=== PATIENT | female | born 1935 | race Caucasian/White ===

== ENCOUNTER → 2016-07-03 | Outpatient (CLI) | payer OTHER ==
[~2016-07-03] MED LIST: GLIM4TAB2 PO; INDSR/120 PO; INSU3INJ3 SC; LIRA18IN; LIRA18IN SC; LISI-461 PO; LISI10TA PO; PROP120C PO; VNTHFA/IN INH
--- NOTE | 2016-07-03 10:03 | DIAGNOSTIC IMAGING REPORT ---
CT SCAN OF THE CHEST WITHOUT IV CONTRAST CLINICAL HISTORY: Follow-up abnormal imaging study. COMPARISON STUDY: Chest CT scans dated between 03/22/2016 and 01/24/2015. TECHNIQUE: CT scan of the thorax was performed from the thoracic inlet to the upper abdomen. Images are reviewed in the axial, sagittal, and coronal planes. IV contrast was not administered for this examination. CT DOSE: 165.69 mGycm FINDINGS: Thyroid: Atrophic. Thoracic aorta: There is mild atherosclerotic calcification of the thoracic aorta, which is normal in caliber and demonstrates standard 3-vessel arch anatomy. Heart: The heart is normal in size and there is trace pericardial effusion. The coronary arteries and mitral annulus are densely calcified. Lungs and pleural spaces: There is biapical scarring. Scarring and mild bronchiectasis is seen in the right middle lobe and lingula. There are numerous foci of tree-in-bud nodularity scattered throughout both lungs. This is greatest in the apices and at the right lung base, and is overall similar appearance to the 07/03/2016 examination. No lobar consolidation or pleural effusion is identified. Mucous plugging is noted in the right middle lobe and lingula. The trachea and central airways our clear. Mediastinum: There is no mediastinal lymphadenopathy. Allison: Not well assessed without IV contrast. Axillae: There is no axillary lymphadenopathy. Upper abdomen: A 1.2 cm cyst is seen in the left lobe of liver. There is a small hiatal hernia. Cortical atrophy is noted in the partially imaged kidneys. Skeletal structures: The skeletal structures are osteopenic. A moderate compression deformity of T7 is similar to previous. There is a mild superior endplate compression deformity of T2. Hyperkyphosis is observed. No lytic or blastic bony lesions are seen. IMPRESSION: 1. Similar-appearing multifocal tree-in-bud opacities within bone lungs. This is similar to 03/22/2016, and has shown a waxing/waning appearance when compared to prior chest CTs. The appearance is typical for a chronic infectious/inflammatory process such as atypical mycobacterial infection. 2. There is no lobar consolidation or pleural effusion. 3. Hiatal hernia. 4. Additional changes as above. Electronically signed by: Jhonatan Villeda M.D. 07/03/2016 10:01 AM Dictated Date/Time: 07/03/2016 9:53 AM
== END | disposition home or self-care (01) ==
LOC: C.CTS 09:20
PROVIDERS: ATTEND Internal Medicine Pulmonary Disease
DX: R91.8 Other nonspecific abnormal finding of lung field (principal); J98.8 Other specified respiratory disorders; K44.9 Diaphragmatic hernia without obstruction or gangrene

== ENCOUNTER → 2016-07-08 | Outpatient (CLI) | payer OTHER ==
[2016-07-08 13:01] LABS: ESTIMATED AVERAGE GLUCOSE 217 mg/dl; HA1C FLAG Normal (Normal)
[2016-07-08 13:19] LABS: AST/SGOT 10 U/L (15-37); BLOOD UREA NITROGEN 13 mg/dl (7-18); BUN/CREATININE RATIO 17.5 (10-20); CALCIUM 9.4 mg/dl (8.5-10.1); CARBON DIOXIDE 26 mmol/L (21-32); CHLORIDE 106 mmol/L (98-107); CHOLESTEROL 179 mg/dl (0-200); CREATININE 0.75 mg/dl (0.60-1.20); GLUCOSE 169 mg/dl (70-99); POTASSIUM 4.2 mmol/L (3.5-5.1); SODIUM 140 mmol/L (136-145); TRIGLYCERIDES 142 mg/dl (0-150); VERY LOW DENSITY LIPOPROT CALC 28 mg/dl
[2016-07-08 13:24] LABS: ALKALINE PHOSPHATASE 73 U/L (45-117); ALT/SGPT 19 U/L (12-78); CHOLESTEROL/HDL RATIO 3.3; HDL CHOLESTEROL 54 mg/dl; LDL CHOLESTEROL CALCULATED 97 mg/dl
== END | disposition home or self-care (01) ==
LOC: C.LABBFT 08:15
PROVIDERS: ATTEND Internal Medicine
DX: E11.65 Type 2 diabetes mellitus with hyperglycemia (principal)

== ENCOUNTER → 2016-07-12 | Outpatient (CLI) | payer OTHER ==
[2016-07-12 18:50] LABS: RATIO 17.7 mcg/mg (0-30.0)
== END | disposition home or self-care (01) ==
LOC: C.LABSPEC 17:32
PROVIDERS: ATTEND Internal Medicine
DX: E11.65 Type 2 diabetes mellitus with hyperglycemia (principal)

== ENCOUNTER → 2016-11-01 | Outpatient (CLI) | payer OTHER ==
--- NOTE | 2016-11-01 11:50 | DIAGNOSTIC IMAGING REPORT ---
CHEST 2 VIEWS ROUTINE CLINICAL HISTORY: Cough. COMPARISON STUDY: Chest CT July 03, 2016. FINDINGS: There is no pneumothorax or pleural effusion. Nipple shadows project over the lower lungs. There is no evidence of pulmonary edema. There is reticulonodular interstitial thickening within the lungs. Left mid lung reticulonodular interstitial thickening shown on exam of July 03, 2016 has improved. Otherwise, the appearance of the chest is similar to prior exam. IMPRESSION: Reticulonodular interstitial thickening within the lungs suggestive of an infectious process such as atypical mycobacterial infection, better depicted on prior chest CT. Slight improvement since prior exam. Electronically signed by: Alvaro Anne M.D. 11/01/2016 11:49 AM Dictated Date/Time: 11/01/2016 11:47 AM
== END | disposition home or self-care (01) ==
LOC: C.RADBBURG 11:32
PROVIDERS: ATTEND Physician Assistant
DX: R05 Cough (principal)

== ENCOUNTER → 2017-01-06 | Outpatient (CLI) | payer OTHER ==
[2017-01-06 12:27] LABS: BASO % 0.2 %; BASO ABS # 0.01 K/uL (0-0.2); COMPLETE YES; IG% 0.2 %; LYMPH % 27.4 %; LYMPH ABS # 1.53 K/uL (1.2-3.4); MEAN CELL VOLUME 85.2 fL (80-100); MEAN CORPUSCULAR HEMOGLOBIN 28.2 pg (25-34); MEAN CORPUSCULAR HGB CONC 33.1 g/dl (32-36); MEAN PLATELET VOLUME 10.3 fL (7.4-10.4); NEUT % 63.2 %; PLATELET COUNT 188 K/uL (130-400); RED BLOOD COUNT 4.93 M/uL (4.2-5.4); WHITE BLOOD COUNT 5.58 K/uL (4.8-10.8)
[2017-01-06 12:42] LABS: ESTIMATED AVERAGE GLUCOSE 171 mg/dl; HA1C FLAG Normal (Normal)
[2017-01-06 13:08] LABS: ALT/SGPT 24 U/L (12-78); AST/SGOT 14 U/L (15-37); BLOOD UREA NITROGEN 18 mg/dl (7-18); BUN/CREATININE RATIO 24.4 (10-20); CALCIUM 9.3 mg/dl (8.5-10.1); CARBON DIOXIDE 28 mmol/L (21-32); CHLORIDE 105 mmol/L (98-107); CHOLESTEROL 215 mg/dl (0-200); CREATININE 0.72 mg/dl (0.60-1.20); GLUCOSE 177 mg/dl (70-99); POTASSIUM 4.3 mmol/L (3.5-5.1); SODIUM 139 mmol/L (136-145)
[2017-01-06 13:11] LABS: ALB/GLOB RATIO 0.9 (0.9-2); ALKALINE PHOSPHATASE 91 U/L (45-117); CHOLESTEROL/HDL RATIO 3.3; HDL CHOLESTEROL 65 mg/dl; LDL CHOLESTEROL CALCULATED 128 mg/dl; TRIGLYCERIDES 112 mg/dl (0-150); VERY LOW DENSITY LIPOPROT CALC 22 mg/dl
== END | disposition home or self-care (01) ==
LOC: C.LABBFT 08:29
PROVIDERS: ATTEND Internal Medicine
DX: E78.5 Hyperlipidemia, unspecified (principal); I10 Essential (primary) hypertension; D50.9 Iron deficiency anemia, unspecified; E11.65 Type 2 diabetes mellitus with hyperglycemia

== ENCOUNTER 2017-01-09 10:40 | Emergency (ER) | payer OTHER ==
[~2017-01-09 10:40] MED LIST changes: -INSU3INJ3 SC; -LIRA18IN SC; -LISI10TA PO; -PROP120C PO; -VNTHFA/IN INH
[2017-01-09 10:47] VITALS: TEMP 36.2; Ht 158.8 cm
[2017-01-09] MEDS ORDERED: OXYCODONE HCL IR 5 MG TAB (IMMEDIATE RELEASE) PO STA ×2 (11:06→12:53)
--- NOTE | 2017-01-09 11:47 | DIAGNOSTIC IMAGING REPORT ---
LEFT HUMERUS MIN 2 VIEWS ROUTINE, LEFT ELBOW MIN 3 VIEWS ROUTINE, LEFT FOREARM 2 VIEWS ROUTINE CLINICAL HISTORY: Fall. Left arm pain. COMPARISON STUDY: None. FINDINGS: Soft tissue swelling and a joint effusion within the left elbow. This is secondary to the comminuted, displaced, and impacted distal left humerus fracture. No dislocation. The bones are osteopenic. Mild soft tissues swelling at the wrist. The radius and ulna appear intact. No fracture or dislocation within the proximal left humerus. IMPRESSION: Comminuted, displaced, and impacted distal left humerus fracture. The left radius and ulna appear intact. Electronically signed by: Jose Glez M.D. 01/09/2017 11:45 AM Dictated Date/Time: 01/09/2017 11:42 AM
[2017-01-09] MEDS ORDERED: LISI10TA PO (12:05)
[2017-01-09] MEDS ORDERED: PROP120C PO (12:05)
[2017-01-09] MEDS ORDERED: LIRA18IN SC (12:05)
[2017-01-09] MEDS ORDERED: VNTHFA/IN INH (12:05)
[2017-01-09] MEDS ORDERED: INSU3INJ3 SC (12:05)
[2017-01-09 13:48] VITALS: BP 182/88; PULSE 61; O2SAT 95
--- NOTE | 2017-01-09 17:20 | EMERGENCY ROOM VISIT NOTE ---
History Report prepared by Ulises: Helen Valencia Under the Supervision of: Dr. Reza Valdez D.O. 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 The patient was getting dressed this morning. She lost her balance while standing on one leg to put on her jeans. She fell and landed on her left arm on the hardwood floor. The patient is complaining of pain from her left shoulder down into her fingertips. Her pain is worse around her left elbow. She rates her pain as an 8/10 in severity. Her pain is worsened with movement of the left arm. The patient denies any other injury occurring from her fall. She denies hitting her head, LOC, headache, neck pain, and other extremity pain. She does not take any blood thinners. The patient is right-hand dominant. Source of History: patient Onset: TRAY CHECKER Position: arm (left) Symptom Intensity: 8/10 Timing: constant Modifying Factors (Worsening): movement (left arm) Associated Symptoms: No LOC, No headache, No neck pain Note: Pt denies any other injury. Review of Systems See HPI for pertinent positives & negatives. A total of 10 systems reviewed and were otherwise negative. Past Medical & Surgical Medical Problems: (1) Diabetes (2) History of right hip replacement (3) Osteoporosis (4) Stroke Family History Diabetes mellitus FH: cancer Social History Smoking Status: Never Smoker Smokeless Tobacco Use: No Alcohol Use: none Drug Use: none Marital Status: Housing Status: lives with significant other Occupation Status: retired Current/Historical Medications Scheduled Insulin Detemir (Levemir Flextouch), 40 UNITS SC DAILY Liraglutide (Victoza), 1.8 MG SC DAILY Lisinopril (Prinivil), 10 MG PO BID Propranolol Hcl (Propranolol Hcl Er), 120 MG PO DAILY Scheduled PRN Albuterol Hfa (Ventolin Hfa), 2 PUFFS INH Q4 PRN for SOB/Wheezing Allergies Coded Allergies: No Known Allergies (Unverified , 04/08/16) Physical Exam Vital Signs Date Time Temp Pulse Resp B/P (MAP) Pulse Ox O2 Delivery O2 Flow Rate FiO2 8/24/17 13:48 61 20 182/88 95 01/09/17 12:45 71 20 195/92 96 Room Air 01/09/17 10:47 36.2 70 18 209/83 100 Room Air Physical Exam GENERAL: alert, sitting up in bed, well appearing, well nourished, no distress, non-toxic HEAD: normal cephalic, atraumatic EYE EXAM: normal conjunctiva, PERRL and EOM's grossly intact OROPHARYNX: no exudate, no erythema, lips, buccal mucosa, and tongue normal and mucous membranes are moist EARS: TMs clear b/l NECK: supple, no nuchal rigidity, no adenopathy, non-tender CHEST: stable to compression anteriorly and posteriorly LUNGS: clear to auscultation. Normal chest wall mechanics HEART: no murmurs, S1 normal and S2 normal ABDOMEN: abdomen soft, non-tender, normo-active bowel sounds, no masses, no rebound or guarding. PELVIS: stable to compression anteriorly and posteriorly BACK: Back is symmetrical on inspection and there is no deformity, no midline tenderness, no CVA tenderness. UPPER EXTREMITIES: Acute reproducible tenderness to the mid-distal humerus through the elbow and mid forearm. Radial pulses 2/4, distal sensation intact. Grasp along with flexion/extension at the wrist is intact. LOWER EXTREMITIES: full active and passive range of motion of all joints without tenderness to palpation NEURO EXAM: Normal sensorium, cranial nerves II-XII grossly intact, normal speech, no gross weakness of arms, no gross weakness of legs. GCS: 15. Medical Decision & Procedures ER Provider Diagnostic Interpretation: Radiology results as stated below per my review and the radiologist's interpretation: LEFT HUMERUS MIN 2 VIEWS ROUTINE, LEFT ELBOW MIN 3 VIEWS ROUTINE, LEFT FOREARM 2 VIEWS ROUTINE CLINICAL HISTORY: Fall. Left arm pain. COMPARISON STUDY: None. FINDINGS: Soft tissue swelling and a joint effusion within the left elbow. This is secondary to the comminuted, displaced, and impacted distal left humerus fracture. No dislocation. The bones are osteopenic. Mild soft tissues swelling at the wrist. The radius and ulna appear intact. No fracture or dislocation within the proximal left humerus. IMPRESSION: Comminuted, displaced, and impacted distal left humerus fracture. The left radius and ulna appear intact. Electronically signed by: Jose Glez M.D. 01/09/2017 11:45 AM Dictated Date/Time: 01/09/2017 11:42 AM LEFT HUMERUS MIN 2 VIEWS ROUTINE, LEFT ELBOW MIN 3 VIEWS ROUTINE, LEFT FOREARM 2 VIEWS ROUTINE CLINICAL HISTORY: Fall. Left arm pain. COMPARISON STUDY: None. FINDINGS: Soft tissue swelling and a joint effusion within the left elbow. This is secondary to the comminuted, displaced, and impacted distal left humerus fracture. No dislocation. The bones are osteopenic. Mild soft tissues swelling at the wrist. The radius and ulna appear intact. No fracture or dislocation within the proximal left humerus. IMPRESSION: Comminuted, displaced, and impacted distal left humerus fracture. The left radius and ulna appear intact. Electronically signed by: Jose Glez M.D. 01/09/2017 11:45 AM Dictated Date/Time: 01/09/2017 11:42 AM LEFT HUMERUS MIN 2 VIEWS ROUTINE, LEFT ELBOW MIN 3 VIEWS ROUTINE, LEFT FOREARM 2 VIEWS ROUTINE CLINICAL HISTORY: Fall. Left arm pain. COMPARISON STUDY: None. FINDINGS: Soft tissue swelling and a joint effusion within the left elbow. This is secondary to the comminuted, displaced, and impacted distal left humerus fracture. No dislocation. The bones are osteopenic. Mild soft tissues swelling at the wrist. The radius and ulna appear intact. No fracture or dislocation within the proximal left humerus. IMPRESSION: Comminuted, displaced, and impacted distal left humerus fracture. The left radius and ulna appear intact. Electronically signed by: Jose Glez M.D. 01/09/2017 11:45 AM Dictated Date/Time: 01/09/2017 11:42 AM Medications Administered Medications (Trade) Dose Ordered Sig/[facility] Route Start Time Stop Time Status Last Admin Dose Admin Oxycodone HCl (Roxicodone Immediate Rel Tab) 5 mg NOW STAT PO 01/09/17 11:06 01/09/17 11:08 DC 01/09/17 11:13 5 MG Oxycodone HCl (Roxicodone Immediate Rel Tab) 5 mg NOW STAT PO 01/09/17 12:53 01/09/17 12:54 DC 01/09/17 13:15 5 MG ED Course ED COURSE: Vital signs were reviewed and showed hypertensive. The patients medical record was reviewed The above diagnostic studies were performed and reviewed. ED treatments and interventions as stated above. 1053: The patient was evaluated in room A10. A complete history and physical examination was performed. 1106: Oxycodone HCl 5 mg PO 1155: I updated the patient on her radiologist results. She has seen [facility] in the past. 1215: I discussed the patient's case with a SHADE from Dr. Willis's office. 1225: I discussed the case with Dr. Willis of orthopedics. He recommended transfer and he will follow-up with the patient as an outpatient. 1250: Upon reevaluation, the patient is doing well. I discussed my findings with the patient and her . They understand and agree with the treatment plan. The patient would prefer to go to [facility]. The patient has declined an IV but is agreeable to a splint. Based on the patients age, coexisting illnesses, exam and lab findings the decision to transfer the patient to [facility] was made. The patient remained stable while under my care. 1253: Oxycodone HCl 5 mg PO 1301: I spoke with Dr. Cole of [facility]. He recommends transfer to the ED. 1305: I discussed the patient's case with Dr. Singh in the ED at [facility]. He accepted the patient for transfer to their facility. 1307: I updated the patient and her . They are in agreement with the plan. Medical Decision Differential diagnoses include major intracranial, cervical, spinal, thoracic, abdominal, pelvic and neurologic injury. Fracture, contusion, sprain, strain, laceration, abrasions included as well. Patient is an 81-year-old female who fell while getting dressed onto her left elbow. She has a comminuted fracture which is also displaced. She is neurovascularly intact. Discussed the case with orthopedics and they recommended if she wants surgery she would have to be evaluated by another facility. Discussed the case with [facility] orthopedics and they recommended transferring to the ER as opposed to following up in the clinic. Patient declined an IV. She was given 2 doses of OxyIR. She requests to be transported via private vehicle. Patient no other complaints. completely neurologically intact. She was discharged following being placed in a splint for comfort to [facility] ER. Medication Reconcilliation Current Medication List: was personally reviewed by me Blood Pressure Screening Patient's blood pressure: Elevated blood pressure Blood pressure disposition: Elevated BP felt to be situational Consults Time Called: 1219 Consulting Physician: Dr. Willis Returned Call: 1225 I discussed the case with Dr. Willis of orthopedics. He recommended transfer and he will follow-up with the patient as an outpatient. Additional Consults: Time Called: 1259 Consulted Physician: Dr. Cole Returned Call: 1301 Additional Comments: I spoke with Dr. Cole of [facility]. He recommends transfer to the ED. Time Called: 1304 Consulted Physician: Dr. Singh Returned Call: 1305 Additional Comments: I discussed the patient's case with Dr. Singh in the ED at [facility]. He accepted the patient for transfer to their facility. Impression Primary Impression: Left elbow fracture Scribe Attestation The scribe's documentation has been prepared under my direction and personally reviewed by me in its entirety. I confirm that the note above accurately reflects all work, treatment, procedures, and medical decision making performed by me. Departure Information Dispostion Transfer Acute Care Facility Referrals Ollie Rosario M.D. (PCP) Patient Instructions My [facility] Problem Qualifiers Primary Impression: Left elbow fracture Encounter type: initial encounter Fracture type: closed Qualified Codes: S42.402A - Unspecified fracture of lower end of left humerus, initial encounter for closed fracture
== END 2017-01-09 13:53 | disposition short-term general hospital (02) ==
LOC: C.EDB 10:41 → C.EDA 13:53
DX: S42.492A Other displaced fracture of lower end of left humerus, initial encounter for closed fracture (principal); W19.XXXA Unspecified fall, initial encounter; Y93.89 Activity, other specified; E11.9 Type 2 diabetes mellitus without complications; Z96.641 Presence of right artificial hip joint; M81.0 Age-related osteoporosis without current pathological fracture; Z86.73 Personal history of transient ischemic attack (TIA), and cerebral infarction without residual deficits; Z83.3 Family history of diabetes mellitus; Z80.9 Family history of malignant neoplasm, unspecified; Z79.4 Long term (current) use of insulin; Z79.899 Other long term (current) drug therapy

== ENCOUNTER → 2017-06-02 | Outpatient (CLI) | payer BC ==
[~2017-06-02] MED LIST changes: -GLIM4TAB2 PO; -INDSR/120 PO; +INSU3INJ3 SC; -LIRA18IN; +LIRA18IN SC; -LISI-461 PO; +LISI10TA PO; +PROP120C PO; +VNTHFA/IN INH
[2017-06-02 12:41] LABS: HEMATOCRIT 42.9 % (37-47); HEMOGLOBIN 14.2 g/dL (12.0-16.0); MEAN CELL VOLUME 84.1 fL (80-100); MEAN CORPUSCULAR HEMOGLOBIN 27.8 pg (25-34); MEAN CORPUSCULAR HGB CONC 33.1 g/dl (32-36); PLATELET COUNT 175 K/uL (130-400); RED CELL DISTRIBUTION WIDTH SD 48.6 fL (36.4-46.3)
[2017-06-02 12:57] LABS: HEMOGLOBIN A1C 7.9 % (4.5-5.6)
[2017-06-02 13:10] LABS: ALBUMIN 3.5 gm/dl (3.4-5.0); ALT/SGPT 23 U/L (12-78); BLOOD UREA NITROGEN 16 mg/dl (7-18); CARBON DIOXIDE 29 mmol/L (21-32); CHOLESTEROL 219 mg/dl (0-200); CREATININE 0.62 mg/dl (0.60-1.20); GLUCOSE 159 mg/dl (70-99); POTASSIUM 4.2 mmol/L (3.5-5.1); SODIUM 141 mmol/L (136-145)
[2017-06-02 13:13] LABS: ALKALINE PHOSPHATASE 92 U/L (45-117); AST/SGOT 15 U/L (15-37); LDL CHOLESTEROL CALCULATED 127 mg/dl; TOTAL PROTEIN 7.3 gm/dl (6.4-8.2)
== END | disposition home or self-care (01) ==
LOC: C.LABBFT 07:59
PROVIDERS: ATTEND Internal Medicine
DX: E11.65 Type 2 diabetes mellitus with hyperglycemia (principal)

== ENCOUNTER → 2017-06-04 | Outpatient (CLI) | payer BC | END | disposition home or self-care (01) | LOC: C.LABBFT 13:45 | PROVIDERS: ATTEND Internal Medicine | DX: E11.65 Type 2 diabetes mellitus with hyperglycemia (principal) ==

== ENCOUNTER → 2017-08-21 | Outpatient (CLI) | payer BC | END | disposition home or self-care (01) | LOC: C.MAMM 14:59 | PROVIDERS: ATTEND Internal Medicine | DX: M85.88 Other specified disorders of bone density and structure, other site (principal); M81.0 Age-related osteoporosis without current pathological fracture ==

== ENCOUNTER → 2018-01-01 | Outpatient (CLI) | payer BC ==
--- NOTE | 2018-01-01 09:47 | DIAGNOSTIC IMAGING REPORT ---
CHEST 2 VIEWS ROUTINE CLINICAL HISTORY: R05 [id number] dyspnea COMPARISON STUDY: 11/03/2016 FINDINGS: The bones soft tissues and hemidiaphragms are normal. The cardiomediastinal silhouette is normal. The lungs are clear. The pulmonary vasculature is normal. IMPRESSION: Negative chest. The above report was generated using voice recognition software. It may contain grammatical, syntax or spelling errors. Electronically signed by: Michael Buckner M.D. 01/01/2018 9:45 AM Dictated Date/Time: 01/01/2018 9:45 AM
== END | disposition home or self-care (01) ==
LOC: C.RAD1850 09:31
PROVIDERS: ATTEND Physician Assistant
DX: R05 Cough (principal)

== ENCOUNTER 2019-03-20 14:13 | Inpatient (IN) ==
--- OUTSIDE RECORDS SUMMARY | 2019-03-20 14:17 | External Medical Summary | Continuity of Care Document ---
:1935 Author Name Alvarado Galindo, Provider Address Unavailable Unavailable , Care Team Providers Name Role Phone Unavailable Unavailable Unavailable Marlene GUTIERREZ M.D., Ollie Helm Unavailable [email or web address] Naya Hollingsworth PA-C Unavailable [email or web address] Gene LAGUERRE Unavailable [email or web address] PCP, NO Unavailable Unavailable MATT ROSARIO M.D., A Unavailable Unavailable Unavailable Unavailable Unavailable Problems Left carotid bruit (785.9) (R09.89) Toe joint pain (719.47) (M25.579) Dupuytren's contracture (728.6) (M72.0) Cataract (366.9) (H26.9) Allergic rhinitis (477.9) (J30.9) Urinary tract infection (599.0) (N39.0) 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) Transient visual loss (368.12) (H53.129) Joint pain, hip (719.45) (M25.559) Hyperplastic colon polyp (211.3) (K63.5) Pigmented nevus (216.9) (D22.9) Pre-operative exam (V72.84) (Z01.818) Esophageal reflux (530.81) (K21.9) Abnormal finding on lung imaging (793.19) (R91.8) Hyperlipidemia (272.4) (E78.5) Hypertension (401.9) (I10) Urinary incontinence (788.30) (R32) Osteopenia (733.90) (M85.80) Other specified disorders of bone densit y and structure, other site (733.99) (M85.88) Iron deficiency anemia (280.9) (D50.9) Ganglion (727.43) (M67.40) Trigger thumb of left hand (727.03) (M65.312) Upper respiratory infection (465.9) (J06.9) Foot pain (729.5) (M79.673) Type 2 diabetes mellitus (250.00) (E11.9) Dysphagia (787.20) (R13.10) Cervicalgia (723.1) (M54.2) Pulmonary nodule (793.11) (R91.1) Pneumonia (486) (J18.9) Diabetes mellitus type 2, uncontrolled (250.02) (E11.65) Edema (782.3) (R60.9) Stroke syndrome Acne (706.1) (L70.9) Fracture of humerus, distal, left, closed (812.40) (S42.402A ) Neoplasm of uncertain behavior (238.9) (D48.9) Diarrhea (787.91) (R19.7) Anemia (285.9) (D64.9) Degenerative arthritis of cervical spine (721.0) (M47.812) 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) Joint pain, elbow (719.42) (M25.529) Closed Displaced Fracture Of The Neck Of The Right Femur (82 0.8) Stroke Of The Right Posterior Cerebral Artery (433.80) Abnormal mammogram (793.80) (R92.8) Lymphadenopathy (785.6) (R59.1) History of MAC infection (V12.09) (Z86.19) Bronchiectasis (494.0) (J47.9) Pseudomonas respiratory infection (519.8) (J98.8) Cough (786.2) (R05) Dyspnea on exertion (786.09) (R06.09) Allergies and Adverse Reactions lisinopril (Allergy) metFORMIN HCl TABS (Allergy) Reaction: D iarrhea vancomycin (Allergy) Reaction: Hives Medications ReliOn Pen Beatrice 32G X 4 MM; USE TWICE DAILY Mateo Rosario III Start: 14-Sep-2018 Quantity: 100 Refills: 5 Propranolol HCl ER 120 MG Oral Capsule E xtended Release 24 Hour; TAKE ONE CAPSULE BY MOUTH TWICE DAILY Mateo Rosario III Start: 19-Mar-2018 Quantity: 180 Refills: 3 Vitamin D-3 125 MCG (5000 UT) Oral Tablet Mateo Start: 24-Oct-2017 Refills: 0 Victoza 18 MG/3ML Subcutaneous Solution Pen-injector; inject 1.8 mg subcutaneously once daily SHADE Hollingsworth Start: 23-Dec-2017 Quantity: 4 2 x 3 ML Pen Refills: 5 Calcium TABS , M.DGosia Refills: 0 Levemir FlexTouch 100 UNIT/ML Subcutaneo us Solution Pen-injector; INJECT 50 UNIT Daily SHADE Hollingsworth Start: 12-Jul-2016 Quantity: 3 5 x 3 ML Pen Refills: 5 OneTouch Ultra Blue In Vitro Strip; testing three time s a day and as needed SHADE Hollingsworth Start: 02-Dec-2012 Quantity: 300 Refills: 3 Multivitamins TABS; TAKE 1 TABLET DAILY. Mateo Refills: 0 ProAir RespiClick 108 (90 Base) MCG/ACT Inhalation Aerosol Powder Breath Activated; INHALE 2 PUFFS Every 4 hours SHADE Flowers Start: 23-Jan-2018 Quantity: 1 Refills: 0 Losartan Potassium 50 MG Oral Tablet; TAKE ONE TABLET BY MOUTH ONCE DAILY Mateo Rosario III Start: 18-Jun-2018 Quantity: 90 Refills: 3 traMADol HCl - 50 MG Oral Tablet; TAKE 1 TABLET EVERY 6 HOURS NEEDED FOR PAIN. Mateo Rosario III Start: 13-Jan-2017 Quantity: 40 Refills: 0 OneTouch UltraSoft Lancets; TESTS 1X DAILY AND NEED ED Mateo Rosario III Quantity: 150 Refills: 3 OneTouch Ultra Control In Vitro Solution; USE DIREC SERINA. Mateo Rosario III Start: 01-Jun-2012 Quantity: 1 Refills: 3 Procedures History of Total Hip Replacement Status: Completed History of Complete Colonoscopy Status: Completed History of Diagnostic Esophagogastroduodenoscopy Status: Completed History of Diagnostic Esophagogastroduodenoscopy Status: Completed History of Cataract Surgery Status: Comp leted History of Cataract Surgery Status: Comp leted History of Integumentary Procedures Blepharoplasty Status: Completed Immunizations Pneumococcal polysaccharide vaccine, 23 valent On: 2006 Influenza On: 08-Feb-2009 Prevnar 13 Intramuscular Suspension On: 02-Jun-2015 9:23 Lot #: [id number], [employer] Fluzone High-Dose 0.5 ML Intramuscular Suspension Pref illed Syringe On: 18-Mar-2018 14:52 Lot #: [id number], [employer] Family History Father Family history of Father At Age ___ Status: Active Family history of Colon Cancer (V16.0) Status: Active Mother Family history of Mother At Age ___ Status: Active Brother Family history of Brother At Age ___ Status: Active Family history of Diabetes Mellitus (V18.0) Status: Active Family history of Pure Hypercholesterolemia Status: Active Family history of Cancer Status: Active Family history of tremor (V17.2) (Z82.0) Status: Active Social History - Smoking Status Never smoker Plan of Treatment Planned Observations Planned Goals not documented Results No Known Results Results not documented Encounters Appointment; Sherin Mills PA-C 03-Aug-2018 15:15 Encounter Diagnosis: Problem not documented Appointment; Sherin Mills PA-C 22-Jul-2018 14:30 Encounter Diagnosis: Problem not documented Appointment; Sherin Mills PA-C 23-Jun-2018 9:45 Encounter Diagnosis: Problem not documented Appointment; Brandon Massey PA-C 29-Apr-2018 11:15 Encounter Diagnosis: Problem not documented Appointment; Brandon Massey PA-C 21-Apr-2018 9:00 Encounter Diagnosis: Problem not documented Appointment; [place] [id number] 18-Mar-2018 14:30 Encounter Diagnosis: Problem not documented Appointment; Ollie Rosario III, M.D. 13-Mar-2018 14:20 Encounter Diagnosis: Problem not documented Appointment; Sherin Mills PA-C 18-Feb-2018 10:15 Encounter Diagnosis: Problem not documented Appointment; Sherin Mills PA-C 23-Jan-2018 9:00 Encounter Diagnosis: Problem not documented Appointment; Pulmonary, Funct Testing 09-Jan-2018 8:30 Encounter Diagnosis: Problem not documented Appointment; Sherin Mills PA-C 01-Jan-2018 9:15 Encounter Diagnosis: Problem not documented Appointment; Ollie Rosario III, M.D. 24-Oct-2017 11:10 Encounter Diagnosis: Problem not documented Appointment; Wellness, Nurse 24-Oct-2017 10:30 Encounter Diagnosis: Problem not documented Appointment; Sherin Mills PA-C 04-Jul-2017 10:15 Encounter Diagnosis: Problem not documented Appointment; Ollie Rosario III, M.D. 04-Jun-2017 13:50 Encounter Diagnosis: Problem not documented
[2019-03-20] MEDS ORDERED: SODIUM CHLORIDE 0.9% 1000ML 500 ML IV ONE (14:23)
[2019-03-20] MEDS ORDERED: ONDANSETRON INJ 2 MG/ML 2 ML VIAL IV STA (14:23)
[2019-03-20] MEDS: MoRPHine SULFATE 4 MG/ML 1 ML CARP\\VIAL IV PRN ×3 (14:46→22:04)
[2019-03-20 14:50] LABS: Basophils # (auto) 0.02 K/uL (0-0.2); Basophils % (auto) 0.2 %; Eosinophils # (auto) 0.14 K/uL (0-0.5); Eosinophils % (auto) 1.4 %; Hematocrit (blood only) 39.9 % (37-47); Hemoglobin 13.1 g/dL (12.0-16.0); Immature Granulocytes # (auto) 0.02 K/uL (0.00-0.02); Immature Granulocytes % (auto) 0.2 %; Lymphocytes # (auto) 1.95 K/uL (1.2-3.4); Lymphocytes % (auto) 19.6 %; Mean Corpuscular Hemoglobin 27.3 pg (25-34); Mean Corpuscular Hgb Conc 32.8 g/dL (32-36); Mean Corpuscular Volume 83.1 fL (80-100); Mean Platelet Volume 9.2 fL (7.4-10.4); Monocytes # (auto) 0.63 K/uL (0.11-0.59); Monocytes % (auto) 6.3 %; Neutrophils # (auto) 7.18 K/uL (1.4-6.5); Neutrophils % (auto) 72.3 %; Platelet Count 295 K/uL (130-400); RDW Coefficient of Variation 14.5 % (11.5-14.5); RDW Standard Deviation 44.1 fL (36.4-46.3); White Blood Count 9.94 K/uL (4.8-10.8)
--- NOTE | 2019-03-20 14:52 | Emergency Department Note ---
Entered by Judith Laguerre acting as a scribe for History of Present Illness General Chief complaint: Fall Time Seen by Provider: 03/20/19 14:17 History of Present Illness Provider complaint: fall Onset (ago): hour(s) 2 Location: hip and left Severity: similar to prior episodes (right hip break 5 years ago) Pain Consistency: + other (episode) Maximum Pain Intensity: 10 Current Pain Intensity: 10 (when trying to move left leg) Associated symptoms: + denies other symptoms (loss of consciousness) and + other (tripped outside walking out of garage, lost balance, did not feel faint prior to falling, cannot walk or bear weight on left leg) Treatments prior to arrival: none The patient is an 84 year old female who presents to the ED with complaints of an episode of a fall that occurred 2 hours ago. The patient states that she tripped outside while walking out of the garage. The patient states that she did not feel faint prior to falling and notes that she fell simply because she lost her balance. The patient states that she has not been able to walk or bear weight on her left leg since the fall. The patient denies loss of consciousness. The patient states that she broke her right hip 5 years ago and her current pain feels similar to this. The patient states that her pain is a 10/10 when she tries to move her left leg. Per nursing staff, the patient did not receive pain medication en route. She presents by EMS. Home Medications Home Medications Medication Instructions Recorded Confirmed Type albuterol sulfate [ProAir 2 puff INHALATION Q4 PRN 08/26/18 03/20/19 History RespiClick] liraglutide [Victoza 2-Rober] 1.8 mg SUBCUT DAILY 08/26/18 03/20/19 History losartan 50 mg PO DAILY 08/26/18 03/20/19 History propranolol 120 mg PO DAILY 08/26/18 03/20/19 History insulin detemir (U-100) 100 50 unit SUBCUT DAILY #45 ml 12/14/18 03/20/19 Rx unit/mL (3 mL) subcutaneous pen solifenacin 5 mg PO DAILY 03/20/19 03/20/19 History Allergies Allergy/AdvReac Type Severity Reaction Status Date / Time No Known Allergies Allergy Unverified 03/20/19 14:54 Past Med/Surg History Medical History Stroke (Resolved) Osteoporosis (Chronic) Diabetes (Chronic) History of right hip replacement (Resolved) Degenerative arthritis of cervical spine (Acute) Left elbow fracture (Acute) Family History Other No pertinent family history Social History Preferred Language: Romansh Communication Ability: Effective Scouts Required: No Beliefs That Will Affect Care: None Current Living Situation: Spouse Other Information That Helps Us Care for You: No Feels Safe at Home: Yes Safety Concerns: Feels Safe At This Time Smoking Status: Never smoker Do You Dip or Chew Tobacco: No ; Second Hand Exposure: No ; Tobacco Cessation Education Requested by Patient: No Hx Alcohol Use: No Hx Substance Use: No Review of Systems See HPI for pertinent positives & negatives. and A total of 10 systems reviewed and were otherwise negative Physical Exam Vital Signs Vital Signs - 24 hr 03/20/19 14:25 03/20/19 14:53 03/20/19 15:19 Temperature 36.6 C Temperature Source Oral Sepsis Recent Fever Within 48 Hours No Sepsis New/Unexplained Change in Mental Status No Sepsis Action Taken by Nursing No Action Required Pulse Rate 70 70 66 Pulse Rate from SpO2 Sensor 75 69 Respiratory Rate 16 21 21 Respiratory Effort / Characteristics Non-Labored Spontaneous Blood Pressure 193/106 H 196/73 H 189/88 H Blood Pressure Mean 135 114 121 Blood Pressure Position Lying Pulse Oximetry 97 94 92 Oxygen Delivery Method Room Air Room Air 03/20/19 15:27 03/20/19 16:00 Temperature Temperature Source Sepsis Recent Fever Within 48 Hours Sepsis New/Unexplained Change in Mental Status Sepsis Action Taken by Nursing Pulse Rate 69 69 Pulse Rate from SpO2 Sensor 70 69 Respiratory Rate 22 24 Respiratory Effort / Characteristics Blood Pressure 189/88 H 198/84 H Blood Pressure Mean 121 122 Blood Pressure Position Pulse Oximetry 92 94 Oxygen Delivery Method GENERAL: Patient is in no acute distress. HEENT: No acute trauma, normocephalic atraumatic, mucous membranes moist, no nasal congestion, no scleral icterus. NECK: No stridor, no adenopathy, trachea is midline. Nontender cervical spine. LUNGS: Clear to auscultation bilaterally, no wheeze, no rhonchi, breath sounds equal. HEART: Irregular rhythm, normal rate, no murmur. ABDOMEN: Soft, nontender, bowel sounds positive, no hernias, no peritonitis. EXTREMITIES: Shortened and externally rotated left lower extremity. Pain to move or palpate left hip. Left ankle and left knee nontender. NEUROLOGIC: Oriented x 3, no acute motor or sensory deficits, no focal weakness. SKIN: No rash, no jaundice, no diaphoresis. Course 1418: Past medical records reviewed. The patient was evaluated in room C4. A complete history and physical exam was performed. 1533: I updated the patient on the test results and plan for admission. 1542: I discussed the patient's case with Dr. Keisha Kerr. He will evaluate the patient for further management. 1549: I discussed the patient with Dr. Barahona- Orthopedic surgery. He states that she will see the patient in consult. 1658: I talked to the patient's family and answered their questions. Consultations Consultation #1: I discussed the patient's case with Dr. Keisha Kerr. He will evaluate the patient for further management. Time: 15:42 Consultation #2: I discussed the patient with Dr. Barahona- Orthopedic surgery. He states that she will see the patient in consult. Time: 15:49 Administered Medications Docusate Sodium (Colace) 100 mg PO BID [facility] Stop: 04/19/19 20:59 Last Admin: 03/20/19 20:31 Dose: 100 mg Documented by: [id number] Insulin Aspart (Novolog Flexpen) 0 units SC ACHS IVON Stop: 04/19/19 16:29 Last Admin: 03/20/19 20:40 Dose: Not Given Documented by: [id number] Cosigned by: [id number] Admin: 03/20/19 18:57 Dose: Not Given Documented by: [id number] Cosigned by: [id number] Morphine Sulfate (Morphine Sulfate) 4 mg IV Q1H PRN PRN Reason: Severe Pain (Rating 7,8,9,10) Stop: 04/03/19 14:22 Last Admin: 03/20/19 19:23 Dose: 4 mg Documented by: [id number] Admin: 03/20/19 14:46 Dose: 4 mg Documented by: [id number] Ondansetron HCl (Zofran) 4 mg IV Q6H PRN PRN Reason: Nausea Stop: 04/19/19 16:14 Last Admin: 03/20/19 19:23 Dose: 4 mg Documented by: [id number] Discontinued Medications Amlodipine Besylate (Norvasc) 5 mg PO 2030 ONE Stop: 03/20/19 20:31 Last Admin: 03/20/19 20:31 Dose: 5 mg Documented by: [id number] Dextrose (Dextrose 50%) 50 ml IV NOW STA Stop: 03/20/19 16:20 Last Admin: 03/20/19 17:19 Dose: Not Given Documented by: [id number] Dextrose (Dextrose 50%) Confirm Administered Dose 50 ml IV .STK-MED ONE Stop: 03/20/19 16:21 Last Admin: 03/20/19 16:29 Dose: 50 ml Documented by: [id number] Hydromorphone HCl (Dilaudid) 0.5 mg IV NOW STA Stop: 03/20/19 17:03 Last Admin: 03/20/19 17:18 Dose: 0.5 mg Documented by: [id number] Sodium Chloride (Nss 1000ml) 500 mls @ 999 mls/hr IV .Q31M ONE Stop: 03/20/19 14:53 Last Infusion: 03/20/19 15:12 Dose: 0 mls/hr Documented by: [id number] Admin: 03/20/19 14:46 Dose: 999 mls/hr Documented by: [id number] Losartan Potassium (Cozaar) 25 mg PO 1645 ONE Stop: 03/20/19 16:46 Last Admin: 03/20/19 17:19 Dose: 25 mg Documented by: [id number] Ondansetron HCl (Zofran) 4 mg IV NOW STA Stop: 03/20/19 14:24 Last Admin: 03/20/19 14:46 Dose: 4 mg Documented by: [id number] Medical Decision Making Differential Diagnosis Differentials include left hip fracture, pelvic fracture, femur fracture, left hip contusion, head or neck trauma, upper extremity trauma. Medical Records Attestation: I reviewed the patient's medical records. Home Medications Current Medication List: was personally reviewed by me Laboratory Data Attestation: I reviewed the patient's lab results. Result diagrams: 03/20/19 14:36 03/20/19 14:36 Lab Results 03/20/19 03/20/19 03/20/19 Range/Units 14:36 14:36 14:36 WBC 9.94 (4.8-10.8) K/uL RBC 4.80 (4.2-5.4) M/uL Hgb 13.1 (12.0-16.0) g/dL Hct 39.9 (37-47) % MCV 83.1 (80-100) fL MCH 27.3 (25-34) pg MCHC 32.8 (32-36) g/dL RDW Std Deviation 44.1 (36.4-46.3) fL RDW Coeff of Clem 14.5 (11.5-14.5) % Plt Count 295 (130-400) K/uL MPV 9.2 (7.4-10.4) fL Immature Gran % (Auto) 0.2 % Neut % (Auto) 72.3 % Lymph % (Auto) 19.6 % [place] % (Auto) 6.3 % Eos % (Auto) 1.4 % Baso % (Auto) 0.2 % Immature Gran # (Auto) 0.02 (0.00-0.02) K/uL Neut # (Auto) 7.18 H (1.4-6.5) K/uL Lymph # (Auto) 1.95 (1.2-3.4) K/uL [place] # (Auto) 0.63 H (0.11-0.59) K/uL Eos # (Auto) 0.14 (0-0.5) K/uL Baso # (Auto) 0.02 (0-0.2) K/uL PT 11.4 (9.0-12.0) Seconds INR 1.1 (0.9-1.1) APTT 28.5 (21.0-31.0) Seconds PTT Ratio 1.1 Sodium 142 (136-145) mmol/L Potassium 3.8 (3.5-5.1) mmol/L Chloride 108 H (98-107) mmol/L Carbon Dioxide 29 (21-32) mmol/L Anion Gap 5.0 (3-11) BUN 14 (7-18) mg/dl Creatinine 0.68 (0.6-1.2) mg/dl Est Cr Clr Drug Dosing Not Reportable Est GFR ( Amer) 93.8 Est GFR (Non-Af Amer) 80.9 BUN/Creatinine Ratio 20.6 H (10-20) Glucose 63 L (70-99) mg/dl POC Glucose (70-99) Calcium 9.1 (8.5-10.1) mg/dl 25-OH Vitamin D Total (30-100) ng/ml Urine Color Urine Appearance (Clear) Urine pH (4.5-7.5) Ur Specific [place] (1.000-1.030) Urine Protein (Negative) Urine Glucose (UA) (Negative) Urine Ketones (Negative) Urine Blood (Negative) Urine Nitrite (Negative) Urine Bilirubin (Negative) Urine Urobilinogen (Negative) Ur Leukocyte Esterase (Negative) Blood Type Antibody Screen 03/20/19 03/20/19 03/20/19 Range/Units 14:40 14:43 15:03 WBC (4.8-10.8) K/uL RBC (4.2-5.4) M/uL Hgb (12.0-16.0) g/dL Hct (37-47) % MCV (80-100) fL MCH (25-34) pg MCHC (32-36) g/dL RDW Std Deviation (36.4-46.3) fL RDW Coeff of Clem (11.5-14.5) % Plt Count (130-400) K/uL MPV (7.4-10.4) fL Immature Gran % (Auto) % Neut % (Auto) % Lymph % (Auto) % [place] % (Auto) % Eos % (Auto) % Baso % (Auto) % Immature Gran # (Auto) (0.00-0.02) K/uL Neut # (Auto) (1.4-6.5) K/uL Lymph # (Auto) (1.2-3.4) K/uL [place] # (Auto) (0.11-0.59) K/uL Eos # (Auto) (0-0.5) K/uL Baso # (Auto) (0-0.2) K/uL PT (9.0-12.0) Seconds INR (0.9-1.1) APTT (21.0-31.0) Seconds PTT Ratio Sodium (136-145) mmol/L Potassium (3.5-5.1) mmol/L Chloride (98-107) mmol/L Carbon Dioxide (21-32) mmol/L Anion Gap (3-11) BUN (7-18) mg/dl Creatinine (0.6-1.2) mg/dl Est Cr Clr Drug Dosing Est GFR ( Amer) Est GFR (Non-Af Amer) BUN/Creatinine Ratio (10-20) Glucose (70-99) mg/dl POC Glucose (70-99) Calcium (8.5-10.1) mg/dl 25-OH Vitamin D Total 33.4 (30-100) ng/ml Urine Color Yellow Urine Appearance Clear (Clear) Urine pH 7.0 (4.5-7.5) Ur Specific [place] 1.018 (1.000-1.030) Urine Protein Negative (Negative) Urine Glucose (UA) Negative (Negative) Urine Ketones Negative (Negative) Urine Blood Negative (Negative) Urine Nitrite Negative (Negative) Urine Bilirubin Negative (Negative) Urine Urobilinogen Negative (Negative) Ur Leukocyte Esterase Negative (Negative) Blood Type B Positive Antibody Screen NEGATIVE 03/20/19 Range/Units 16:15 WBC (4.8-10.8) K/uL RBC (4.2-5.4) M/uL Hgb (12.0-16.0) g/dL Hct (37-47) % MCV (80-100) fL MCH (25-34) pg MCHC (32-36) g/dL RDW Std Deviation (36.4-46.3) fL RDW Coeff of Clem (11.5-14.5) % Plt Count (130-400) K/uL MPV (7.4-10.4) fL Immature Gran % (Auto) % Neut % (Auto) % Lymph % (Auto) % [place] % (Auto) % Eos % (Auto) % Baso % (Auto) % Immature Gran # (Auto) (0.00-0.02) K/uL Neut # (Auto) (1.4-6.5) K/uL Lymph # (Auto) (1.2-3.4) K/uL [place] # (Auto) (0.11-0.59) K/uL Eos # (Auto) (0-0.5) K/uL Baso # (Auto) (0-0.2) K/uL PT (9.0-12.0) Seconds INR (0.9-1.1) APTT (21.0-31.0) Seconds PTT Ratio Sodium (136-145) mmol/L Potassium (3.5-5.1) mmol/L Chloride (98-107) mmol/L Carbon Dioxide (21-32) mmol/L Anion Gap (3-11) BUN (7-18) mg/dl Creatinine (0.6-1.2) mg/dl Est Cr Clr Drug Dosing Est GFR ( Amer) Est GFR (Non-Af Amer) BUN/Creatinine Ratio (10-20) Glucose (70-99) mg/dl POC Glucose 54 L* (70-99) Calcium (8.5-10.1) mg/dl 25-OH Vitamin D Total (30-100) ng/ml Urine Color Urine Appearance (Clear) Urine pH (4.5-7.5) Ur Specific [place] (1.000-1.030) Urine Protein (Negative) Urine Glucose (UA) (Negative) Urine Ketones (Negative) Urine Blood (Negative) Urine Nitrite (Negative) Urine Bilirubin (Negative) Urine Urobilinogen (Negative) Ur Leukocyte Esterase (Negative) Blood Type Antibody Screen Imaging Data Radiologist's Impression: Radiology results as stated below per my review and the radiologist's interpretation: XR chest 1V portable HISTORY: 84 years-old Female fall, pain acute chest trauma status post fall COMPARISON: Chest radiographs 07/22/2018 TECHNIQUE: Portable AP view the chest FINDINGS: Cardiac silhouette is upper limits of normal in size. Calcifications of the mitral annulus. Calcified plaque the thoracic aortic arch. No pneumothorax, ple ural effusion or overt pulmonary edema. Mild chronic interstitial coarsening. Degenerative changes of the shoulders and spine. Mild convex right curvature of the midthoracic spine. IMPRESSION: No acute process. The above report was generated using voice recognition software. It may contain grammatical, syntax or spelling errors. Electronically signed by: Hilario Hernandez M.D. 03/20/2019 3:21 PM XR hip LT 2V w pelvis HISTORY: 84 years-old Female fall, pain acute pelvic pain status post fall COMPARISON: Pelvis radiographs 06/08/2015 TECHNIQUE: AP view of the pelvis with 2 views of the left hip FINDINGS: Right hip total joint arthroplasty is be in satisfactory positioning. Demineralized appearance the bones. No evidence of acute hardware complication. No acute pelvic fracture identified. Degenerative changes of the imaged lower lumbar spine. There is an acute comminuted intratrochanteric fracture of the left femur with the lesser trochanter displaced a few millimeters medially. There is mild impaction with a few degrees of apex superior lateral angulation. Moderate adjacent soft tissue swelling. IMPRESSION: 1. Acute mildly comminuted intratrochanteric fracture of the left femur. 2. Right hip total joint arthroplasty without evidence of complication. The above report was generated using voice recognition software. It may contain grammatical, syntax or spelling errors. Electronically signed by: Hilario Hernandez M.D. 03/20/2019 3:19 PM ECG Data Attestation: I personally reviewed and interpreted this ECG as follows: Indication: + other (fall) Rate (beats per minute): 72 Rhythm: + sinus rhythm ECG ST segments: no ST elevation ECG Findings: + PVCs and + Other (QTC 462) Blood Pressure Blood Pressure Findings: Elevated blood pressure Blood Pressure Disposition: further management by hospitalist MDM Narrative There is no leukocytosis or concerning anemia. There is a normal platelet count. No coagulopathy. Glucose is slightly low, no renal failure. No evidence for UTI. Chest film showed some chronic findings, there was no pneumonia or CHF. Left pelvis and hip films show a left intertrochanteric hip fracture, no pelvis fracture. EKG shows a sinus rhythm, no acute ischemia. On my exam, there was no evidence for injury to the head, neck or chest. Her injury complex appeared isolated to the left hip. The patient was given IV Zofran, IV morphine, IV saline. She was written to receive a dose of IV Dilaudid for additional pain control. The patient has fractured her left hip. She will require a hospital stay. I talked with her and her family about my findings. I did speak with the on-call hospitalist service. I spoke with on-call orthopedics. Case management has been involved. Impression & Plan Fracture of left hip, Fall Discharge Plan Visit Data *Final* Discharge Date/Time: 03/20/19 17:53 Chief Complaint: Fall ED Provider: Jhonatan Pineda Discharge Problem: Fracture of left hip, Fall Patient Disposition: Admitted As Inpatient Discharge Instructions Interventions: ED Discharge Assessment Last Done: 03/20/19 17:53 Discharge Problem: Fracture of left hip Qualifiers: Encounter type: initial encounter Fracture type: closed Qualified Code(s): S72.002A - Fracture of unspecified part of neck of left femur, initial encounter for closed fracture Fall Qualifiers: Encounter type: initial encounter Qualified Code(s): W19.XXXA - Unspecified fall, initial encounter The scribe's documentation has been prepared under my direction and personally reviewed by me in its entirety. I confirm that the note above accurately reflects all work, treatment, procedures, and medical decision making performed by me.
[2019-03-20 15:01] LABS: INR 1.1 (0.9-1.1); Partial Thromboplastin Ratio 1.1; Partial Thromboplastin Time 28.5 Seconds (21.0-31.0); Prothrombin Time 11.4 Seconds (9.0-12.0)
[2019-03-20 15:09] LABS: BUN Creatinine Ratio 20.6 (10-20); Blood Urea Nitrogen 14 mg/dl (7-18); Calcium 9.1 mg/dl (8.5-10.1); Carbon Dioxide 29 mmol/L (21-32); Chloride 108 mmol/L (98-107); Est GFR (African American) 93.8; Est GFR (Non-African American) 80.9; Glucose 63 mg/dl (70-99); Potassium 3.8 mmol/L (3.5-5.1); Sodium 142 mmol/L (136-145)
--- NOTE | 2019-03-20 15:20 | XRay Report ---
XR hip LT 2V w pelvis HISTORY: 84 years-old Female fall, pain acute pelvic pain status post fall COMPARISON: Pelvis radiographs 06/08/2015 TECHNIQUE: AP view of the pelvis with 2 views of the left hip FINDINGS: Right hip total joint arthroplasty is be in satisfactory positioning. Demineralized appearance the yamileth joellen. No evidence of acute hardware complication. No acute pelvic fracture identified. Degenerative ch anges of the imaged lower lumbar spine. There is an acute comminuted intratrochanteric fracture of th e left femur with the lesser trochanter displaced a few millimeters medially. There is mild impaction with a few degrees of apex superior lateral angulation. Moderate adjacent soft tissue swelling. IMPRESSION: 1. Acute mildly comminuted intratrochanteric fracture of the left femur. 2. Right hip total joint arthroplasty without evidence of complication. The above report was generated using voice recognition software. It may contain grammatical, syntax o r spelling errors. Electronically signed by: Hilario Hernandez M.D. 03/20/2019 3:19 PM
--- NOTE | 2019-03-20 15:22 | XRay Report ---
XR chest 1V portable HISTORY: 84 years-old Female fall, pain acute chest trauma status post fall COMPARISON: Chest radiographs 07/22/2018 TECHNIQUE: Portable AP view the chest FINDINGS: Cardiac silhouette is upper limits of normal in size. Calcifications of the mitral annulus. Calcified plaque the thoracic aortic arch. No pneumothorax, pleural effusion or overt pulmonary edema. Mild ch ronic interstitial coarsening. Degenerative changes of the shoulders and spine. Mild convex right cur vature of the midthoracic spine. IMPRESSION: No acute process. The above report was generated using voice recognition software. It may contain grammatical, syntax o r spelling errors. Electronically signed by: Hilario Hernandez M.D. 03/20/2019 3:21 PM
[2019-03-20 15:51] LABS: Appearance Urine Clear (Clear); Bilirubin Urine Negative (Negative); Blood Urine Negative (Negative); Color Urine Yellow; Glucose Urine UA Negative (Negative); Ketones Urine Negative (Negative); Leukocyte Esterase Urine Negative (Negative); Nitrite Urine Negative (Negative); Protein Urine Negative (Negative); Specific Gravity Urine 1.018 (1.000-1.030); Urobilinogen Urine Negative (Negative)
--- NOTE | 2019-03-20 16:03 | History & Physical Report ---
Date of Service March 20, 2019 Assessment & Plan (1) Fall: -The patient is an 84 year old female who presents to the ED with episode of a fall. The patient states that she tripped outside while walking out of the garage. The patient states that she did not feel faint prior to falling and n otes that she fell simply because she lost her balance -hip/pelvis X ray: Acute mildly comminuted intratrochanteric fracture of the left femur. Right hip total joint arthroplasty without evidence of complication. (2) Fracture of left hip: -Acute mildly comminuted intratrochanteric fracture of the left femur -ED provider discussed case with Dr. Boss of orthopedics for orthopedic consult -anesthesia consult placed as per hip fracture order set -uncertain at this time as to timing of possible left hip fracture repair -will give patient diabetic diet and keep NPO after midnight for now -pain control medications or acetaminophen prn for mild pain or fever, prn oxycodone for moderate pain, prn dilaudid for severe pain -bowel regimen ordered o prevent ileus or constipation -monitor urine output with nelson (3) Diabetes mellitus with hypoglycemia: -review of outpatient medications that patient on Victoza and patient confirms 50 units daily of Detemir -admission glucose as 63, glucose remained low as 53 on finger stick glucose repeat check -Dextrose 50% of 50 ml IV ordered in the ED -will hold place on sliding scale insulin for now and start diabetic diet -tentatively schedule insulin Lantus 10 units for the night of 03/21/19 (4) Hypertension: Hypertensive urgency -elevated blood pressure contributed by pain and stress of hip fracture and underlying hypertension history -give additional losartan 25 mg -continue home dose propanolol 120 mg daily and losartan 50 mg daily DVT prophylaxis: heparin subcutaneous q12 hours for now, heparin subcutaneous should be held at least 6 hours prior to surgery Full Code family Sister-in Law: [phone], Sister: [phone]; [phone] Lundy will be the hospitalist following the patient starting on 03/21/19 History of Present Illness The patient is an 84 year old female who presents to the ED with episode of a fall. The patient states that she tripped outside while walking out of the garage. The patient states that she did not feel faint prior to falling and notes that she fell simply because she lost her balance. No apparent loss of consciousness. Patient found to have Acute mildly comminuted intratrochanteric fracture of the left femur. Patient received pain medications in the Ed and was drowsy but able to give good history with was confirmed by patient's family members in the room. Patient denies acute pain of the left hip at the time of hospitalist physical exam. breathing on room air. denies shortness of breath. denies chest pain. no nausea, no vomiting. no fevers at home. no headache. no dizziness Allergy History: patient tries to avoid mild products but denies any life threatening allergies to medications or foods Family history: diabetes mellitus in multiple family members Primary Care Provider: Jesus Massey DO Allergies Allergy/AdvReac Type Severity Reaction Status Date / Time No Known Allergies Allergy Unverified 03/20/19 14:54 Home Medications Home Medications Medication Instructions Recorded Confirmed Type albuterol sulfate [ProAir 2 puff INHALATION Q4 PRN 08/26/18 03/20/19 History RespiClick] liraglutide [Victoza 2-Rober] 1.8 mg SUBCUT DAILY 08/26/18 03/20/19 History losartan 50 mg PO DAILY 08/26/18 03/20/19 History propranolol 120 mg PO DAILY 08/26/18 03/20/19 History insulin detemir (U-100) 100 50 unit SUBCUT DAILY #45 ml 12/14/18 03/20/19 Rx unit/mL (3 mL) subcutaneous pen solifenacin 5 mg PO DAILY 03/20/19 03/20/19 History Past Med/Surg History Family History Other No pertinent family history Social History Preferred Language: Yakut Feels Safe at Home: Yes Smoking Status: Never smoker Review of Systems Review of Systems: All systems reviewed & are unremarkable except as noted in HPI & below Physical Exam Constitutional: cooperative Eyes: PERRL, conjunctivae normal, anicteric sclerae EOM intact bilaterally ENMT: external ear and nose normal, oropharynx normal Neck: normal visual inspection Respiratory: normal respiratory effort, lungs clear to auscultation Cardiovascular: Rate/Rhythm: regular rate and regular rhythm Gastrointestinal (Abdomen): normal bowel sounds, soft, nontender, no hepatosplenomegaly Musculoskeletal: able to move upper extremities on her own power. able to wiggle the toes bilaterally, sensation to touch of the feet intact Neurologic: PERRL, EOMI, accommodation nl, no face palsy, no dysarthria Psychiatric: Orientation: alert and cooperative Genitourinary: nelson Results & Data Vital Signs (Past 12 Hours) Vital Signs Temp Pulse Resp BP Pulse Ox 03/20/19 15:19 66 21 189/88 H 92 03/20/19 14:53 70 21 196/73 H 94 03/20/19 14:25 36.6 C 70 16 193/106 H 97 (1) Fall Encounter type: initial encounter Qualified Code(s): W19.XXXA - Unspecified fall, initial encounter (2) Fracture of left hip Encounter type: initial encounter Fracture type: closed Qualified Code(s): S 72.002A - Fracture of unspecified part of neck of left femur, initial encounter for closed fracture
[2019-03-20] MEDS ORDERED: ACETAMINOPHEN 325 MG TAB PO PRN (16:08)
[2019-03-20] MEDS ORDERED: GLUCOSE 10 TABS/TUBE PO PRN (16:09)
[2019-03-20] MEDS ORDERED: DEXTROSE 50% 50 ML SYRINGE IV PRN (16:09)
[2019-03-20] MEDS ORDERED: GLUCAGON FOR INJ 1 MG VIAL SQ PRN (16:09)
[2019-03-20] MEDS ORDERED: CARBOHYDRATES FOR HYPOGLYCEMIA PO PRN (16:09)
[2019-03-20] MEDS ORDERED: GLUCOSE 40% GEL 15 GM TUBE PO PRN (16:09)
[2019-03-20] MEDS ORDERED: POLYETHYLENE (MIRALAX) 17 GM PACK PO PRN (16:14)
[2019-03-20] MEDS ORDERED: bisacodyL 10 MG SUPP PR PRN (16:16)
[2019-03-20] MEDS ORDERED: NALOXONE HCL 0.4 MG/1 ML VIAL/CARP IV PRN (16:16)
[2019-03-20] MEDS ORDERED: DEXTROSE 50% 50 ML SYRINGE IV STA (16:19)
[2019-03-20] MEDS ORDERED: HYDROmorphone INJ 0.5 MG/0.5 ML SYR IV PRN (16:20)
[2019-03-20] MEDS ORDERED: OXYCODONE HCL IR 5 MG TAB (IMMEDIATE RELEASE) PO PRN (16:20)
[2019-03-20] MEDS ORDERED: DEXTROSE 50% 50 ML SYRINGE IV ONE (16:20)
[2019-03-20] MEDS ORDERED: LOSARTAN POTASSIUM 25 MG TAB PO ONE (16:45)
[2019-03-20] MEDS ORDERED: HYDROmorphone INJ 0.5 MG/0.5 ML SYR IV STA (17:02)
--- NOTE | 2019-03-20 18:08 | Progress Note ---
DATE: 03/20/2019 CHIEF COMPLAINT: Left hip pain. HISTORY OF PRESENT ILLNESS: The patient is 84 years old. Fell after tripping at home, going out to the garage injuring her left hip. No other injuries are reported. She was seen and evaluated in the Emergency Room and diagnosed with a hip fracture. She is being admitted by Medicine and Orthopedics has been consulted to address her hip. She has no prior history of left hip problems and denies syncope, chest pain, lightheadedness or dizziness at the time of her fall. PAST MEDICAL HISTORY: Significant for high blood pressure, diabetes. She has had a minor stroke, osteoporosis. REVIEW OF SYSTEMS: She denies seizure disorder, heart attack, lung disease, any problems with liver or kidney. She has no history of cancer, bleeding or blood clots. ALLERGIES: She has no medical allergies and is not allergic to metal. PAST SURGICAL HISTORY: Includes carpal tunnel, Dupuytren's, eye surgery, hysterectomy, back surgery, partial right hip replacement for fracture. She had a left elbow fracture and a failed total elbow arthroplasty and currently has cement beads in place. SOCIAL HISTORY: She does not smoke or drink and lives at home with her . She ambulates. PHYSICAL EXAMINATION: She is awake, alert and oriented in no acute distress. She can move her head side to side and moves both upper extremities without difficulty. Her left elbow has limited movement and swelling due to the prior problems. Right leg can be moved without difficulty. Left leg is shortened and externally rotated and cannot be moved. Dorsalis pedis is not palpable or dopplerable. Posterior tib is dopplerable. Foot is warm with capillary refill less than 2 seconds. Ankle and toe plantar flexion and dorsiflexion strength is 5/5. The left leg is nontender except for the hip. No break in the skin, bruising or significant swelling. DIAGNOSTIC IMAGING: Radiographs of the left hip demonstrate a comminuted unstable left hip intertrochanteric fracture. There is a right hip bipolar hemiarthroplasty in place on the right side. IMPRESSION: 1. High blood pressure, diabetes, osteoporosis, history of stroke. 2. Left hip intertrochanteric fracture secondary to fall. This is a pathological fracture secondary to osteoporosis. PLAN: My findings are discussed. Options are reviewed. I have recommended surgery and they agreed to proceed. There are educated about the nature of the operation. We talked about the risks, benefits, rehab and recovery. Plan will be to admit her to the hospital overnight, perform surgery in the morning. N.p.o. after midnight. Informed consent was obtained.
[2019-03-20] MEDS: INSULIN ASPART 100 UNITS/ML 3 ML PEN SC SCH ×2 (18:57→20:40)
[2019-03-20] MEDS: ONDANSETRON INJ 2 MG/ML 2 ML VIAL IV PRN (19:23)
[2019-03-20] MEDS ORDERED: ALBUTEROL 0.5% NEB SOLN 2.5 MG/0.5 ML VIAL NEB PRN (20:05)
[2019-03-20] MEDS ORDERED: AMLODIPINE BESYLATE 5 MG TAB PO ONE (20:30)
[2019-03-20] MEDS: DOCUSATE SODIUM 100 MG CAP PO SCH (20:31)
[2019-03-20] MEDS ORDERED: PROPRANOLOL HCL 60 MG LA CAP PO SCH (21:00)
[2019-03-20] MEDS ORDERED: DOCUSATE SODIUM/SENNA 50/8.6MG TAB PO SCH (21:00)
[2019-03-20] MEDS ORDERED: HEPARIN SOD 5,000 UNIT/0.5 ML VIAL SQ SCH (21:00)
--- NOTE | 2019-03-20 21:43 | Anesthesiology Consultation ---
Date of Service March 20, 2019 Assessment & Plan Chart Review Chart Review: Acceptable Risk for Surgery Consults Requested none History Height/Weight Height: 5 ft 2.52 in Weight: 50.6 kg Allergies Allergy/AdvReac Type Severity Reaction Status Date / Time No Known Allergies Allergy Unverified 03/20/19 14:54 Medications Home Medications Medication Instructions Recorded Confirmed Last Taken albuterol sulfate [ProAir 2 puff INHALATION Q4 PRN 08/26/18 03/20/19 Unknown RespiClick] liraglutide [Victoza 2-Rober] 1.8 mg SUBCUT DAILY 08/26/18 03/20/19 08/26/18 losartan 50 mg PO DAILY 08/26/18 03/20/19 08/26/18 propranolol 120 mg PO DAILY 08/26/18 03/20/19 08/26/18 insulin detemir (U-100) 100 50 unit SUBCUT DAILY #45 ml 12/14/18 03/20/19 Unknown unit/mL (3 mL) subcutaneous pen solifenacin 5 mg PO DAILY 03/20/19 03/20/19 Unknown Active Medications Generic Name Dose Route Start Last Admin Trade Name Freq PRN Reason Stop Dose Admin Docusate Sodium 100 mg 03/20/19 21:00 03/20/19 20:31 Colace PO 04/19/19 20:59 100 mg BID IVON Administration Insulin Aspart 0 units 03/20/19 16:30 03/20/19 20:40 Novolog Flexpen SC 04/19/19 16:29 Not Given ACHS IVON Morphine Sulfate 4 mg 03/20/19 14:23 03/20/19 19:23 Morphine Sulfate IV 04/03/19 14:22 4 mg Q1H PRN Administration Severe Pain (Rating 7,8,9,10) Ondansetron HCl 4 mg 03/20/19 16:15 03/20/19 19:23 Zofran IV 04/19/19 16:14 4 mg Q6H PRN Administration Nausea Past Medical History Medical History Stroke (Resolved) Osteoporosis (Chronic) Diabetes (Chronic) History of right hip replacement (Resolved) Degenerative arthritis of cervical spine (Acute) Left elbow fracture (Acute) Past Family History Family History Other No pertinent family history Social History Smoking Status: Never smoker Do You Dip or Chew Tobacco: No Hx Alcohol Use: No Hx Substance Use: No substance use type: does not use Physical Exam Vital Signs Last Vital Signs Temp 36.3 C L 03/20/19 19:20 Pulse 71 03/20/19 19:20 Resp 16 03/20/19 19:20 BP 198/80 H 03/20/19 19:50 Pulse Ox 100 03/20/19 19:20 Testing Laboratory Results 03/20/19 14:36 03/20/19 14:36 PT 11.4 Seconds (9.0-12.0) 03/20/19 14:36 INR 1.1 (0.9-1.1) 03/20/19 14:36 APTT 28.5 Seconds (21.0-31.0) 03/20/19 14:36 Urine Color Yellow 03/20/19 15:03 Urine Appearance Clear (Clear) 03/20/19 15:03 Urine pH 7.0 (4.5-7.5) 03/20/19 15:03 Ur Specific [place] 1.018 (1.000-1.030) 03/20/19 15:03 Urine Protein Negative (Negative) 03/20/19 15:03 Urine Glucose (UA) Negative (Negative) 03/20/19 15:03 Urine Ketones Negative (Negative) 03/20/19 15:03 Urine Nitrite Negative (Negative) 03/20/19 15:03 Ur Leukocyte Esterase Negative (Negative) 03/20/19 15:03 Blood Type B Positive 03/20/19 14:43 Antibody Screen NEGATIVE 03/20/19 14:43 03/20/19 03/20/19 03/20/19 20:09 17:07 16:15 POC Glucose 131 H 189 H 54 L* Laboratory Tests 03/10/18 03/20/19 03/20/19 07:42 14:36 14:36 WBC 9.94 Hgb 13.1 Plt Count 295 PT 11.4 INR 1.1 APTT 28.5 Sodium Potassium BUN Creatinine Glucose Hemoglobin A1c 7.5 H 03/20/19 14:36 WBC Hgb Plt Count PT INR APTT Sodium 142 Potassium 3.8 BUN 14 Creatinine 0.68 Glucose 63 L Hemoglobin A1c Electrocardiogram Date: 03/20/19 Findings: + NSR @ (72/min with frequent PVCs) Chest X-Ray Date: 03/20/19 Findings: + NAD Echocardiogram Date: 02/10/18 EF: 55 - 60% LV Function: normal Valvular Disease: + MR (mild to mod MR); no
[2019-03-21] MEDS: SOLIFENACIN 5 MG SCH ×3 (01:13→15:02)
[2019-03-21] MEDS ORDERED: Nursing to Pharmacy Communication ONE (02:53)
[2019-03-21 05:13] LABS: Basophils # (auto) 0.01 K/uL (0-0.2); Basophils % (auto) 0.1 %; Eosinophils # (auto) 0.02 K/uL (0-0.5); Eosinophils % (auto) 0.2 %; Hematocrit (blood only) 34.9 % (37-47); Hemoglobin 11.3 g/dL (12.0-16.0); Immature Granulocytes # (auto) 0.02 K/uL (0.00-0.02); Immature Granulocytes % (auto) 0.2 %; Lymphocytes # (auto) 1.69 K/uL (1.2-3.4); Lymphocytes % (auto) 17.7 %; Mean Corpuscular Hgb Conc 32.4 g/dL (32-36); Mean Corpuscular Volume 83.3 fL (80-100); Mean Platelet Volume 9.1 fL (7.4-10.4); Monocytes # (auto) 0.83 K/uL (0.11-0.59); Monocytes % (auto) 8.7 %; Neutrophils # (auto) 6.98 K/uL (1.4-6.5); Neutrophils % (auto) 73.1 %; Platelet Count 208 K/uL (130-400); RDW Coefficient of Variation 14.5 % (11.5-14.5); Red Blood Count 4.19 M/uL (4.2-5.4); White Blood Count 9.55 K/uL (4.8-10.8)
[2019-03-21 05:31] LABS: Albumin Level 2.8 gm/dl (3.4-5.0); BUN Creatinine Ratio 22.1 (10-20); Calcium 8.6 mg/dl (8.5-10.1); Est GFR (African American) 96.1; Est GFR (Non-African American) 82.9
[2019-03-21 05:35] LABS: Albumin Globulin Ratio 0.8 (0.9-2); Bilirubin,Total 0.5 mg/dl (0.2-1); Globulin 3.4 gm/dl (2.5-4.0); Total Protein 6.2 gm/dl (6.4-8.2)
[2019-03-21] MEDS ORDERED: SODIUM CHLORIDE 0.9% 1000ML 1,000 ML IV SCH (05:45)
[2019-03-21] MEDS ORDERED: INSULIN ASPART 100 UNITS/ML 3 ML PEN SC SCH ×2 (06:00→06:23)
[2019-03-21] MEDS ORDERED: CEFAZOLIN 2000MG 2,000 MG/15 ML SYR IV SCH (06:00)
[2019-03-21] MEDS: MoRPHine SULFATE 4 MG/ML 1 ML CARP\\VIAL IV PRN (07:16)
[2019-03-21] MEDS ORDERED: ONDANSETRON INJ 2 MG/ML 2 ML VIAL IV PRN (07:29)
[2019-03-21] MEDS ORDERED: ePHEDrine sulfate 50 MG/ML AMP IV PRN (07:29)
[2019-03-21] MEDS ORDERED: fentaNYL citrate 100 MCG/2 ML VIAL IV PRN (07:29)
[2019-03-21] MEDS ORDERED: ATROPINE SULFATE 0.1 MG/ML 10ML SYR IV PRN (07:29)
[2019-03-21] MEDS ORDERED: BUPIVACAINE 0.5 % 5 MG/1 ML PF 10ML VIAL ONE (07:43)
[2019-03-21] MEDS ORDERED: fentaNYL citrate 100 MCG/2 ML VIAL ONE (08:24)
[2019-03-21] MEDS ORDERED: PROPOFOL IV EMULSION 10 MG/ML 20 ML VIAL IV ONE (08:24)
[2019-03-21] MEDS ORDERED: LIDOCAINE HCL 2% 2 ML VIAL/AMP(20MG/ML) INFIL ONE (08:24)
[2019-03-21] MEDS ORDERED: ONDANSETRON INJ 2 MG/ML 2 ML VIAL ONE (08:25)
[2019-03-21] MEDS ORDERED: INSULIN GLARGINE SOLOSTAR 100 UNITS/ML 3 ML PEN SC SCH ×2 (09:00→21:00)
[2019-03-21] MEDS ORDERED: SOLIFENACIN 5 MG PO SCH (09:00)
--- NOTE | 2019-03-21 09:07 | History & Physical Bridge Note ---
Date of Service March 21, 2019 History & Physical Bridge Note I have examined the patient, reviewed the History & Physical and in the interval since the performance of the History & Physical I have noted the following changes of clinical significance: no changes noted
[2019-03-21] MEDS ORDERED: CEFAZOLIN 250 MG/ML 1 GM VIAL ONE (09:34)
[2019-03-21] MEDS ORDERED: PHENYLEPHRINE 100MCG/ML 5ML SYR ONE (09:46)
--- NOTE | 2019-03-21 11:30 | Post Operative Brief Note ---
Immediate Post Op Note v1 Date of Surgery March 21, 2019 Pre & Post Diagnosis Operation Date: 03/21/19 12:00 Pre-Op Diagnosis: Left hip intertrochanteric fracture Post-Op Diagnosis: Left hip intertrochanteric fracture I identified the patient and participated in the time-out.: Yes Procedure Operation Date: 03/21/19 12:00 Actual Procedures p long intramedullary trochanteric fixation nail left(Left) - Pravin Boss MD Surgeon Pravin Boss MD Hospital Insurance Clerk MANNIE Quintanilla Estimated Blood Loss 30 Findings Consistent with Post-Op Diagnosis Anesthesia Type Spinal MAC Complications none Disposition Accompanied Patient To Recovery: No Disposition: Recovery Room
--- NOTE | 2019-03-21 11:41 | Fluoroscopy Report ---
INTRAOPERATIVE RADIOGRAPHS CLINICAL HISTORY: Open reduction and internal fixation of the left hip. Fluoroscopy time: 106 seconds. FINDINGS: 4 spot fluoroscopic views of the left femur are correlated with radiographs dated 03/20/2019 . There has been internal fixation of an intertrochanteric femoral fracture with intertrochanteric an d intramedullary nails. Near-anatomic alignment has been restored. The orthopedic hardware appears in tact. A single cortical lag screw transfixes the distal end of the intramedullary nail. IMPRESSION: Intraoperative images from open reduction and internal fixation of the left femur as abov e. Electronically signed by: Jhonatan Villeda M.D. 03/21/2019 11:39 AM
--- NOTE | 2019-03-21 11:47 | Operative Report ---
Post Operative Report Pre & Post Diagnosis Operation Date: 03/21/19 12:00 Pre-Op Diagnosis: Left hip intertrochanteric fracture Post-Op Diagnosis: Left hip intertrochanteric fracture I identified the patient and participated in the time-out.: Yes Procedure Operation Date: 03/21/19 12:00 Actual Procedures p intramedullary trochanteric fixation nail left(Left) - Pravin Boss MD Surgeon Pravin Boss MD Glass Calibrator MANNIE Quintanilla Estimated Blood Loss 30 Findings Consistent with Post-Op Diagnosis Specimens None Drains None Anesthesia Type Spinal MAC Complications none Disposition Accompanied Patient To Recovery: No Indications Patient is 84 years old. Status post fall resulting in left hip intertrochanteric fracture. She was seen and evaluated and admitted to the hospital by medicine. Description of Procedure Informed consent obtained. I identified the patient. A preprocedural timeout was performed and a preop dose of intravenous antibiotics was given. She was positioned on the fracture table with the legs and balanced scissors traction. This was done after the administration of the anesthetic. A padded perineal post was utilized. The arms were folded over the chest. Right arm out on a hand table. Bony prominences inspected and padded. A well-padded perineal post was utilized in both feet were padded with Kerlix and ABDs and secured with in the traction boots. With longitudinal traction and slight internal rotation the fracture was anatomically reduced in the AP and lateral planes. The hip was prepped and draped in the usual sterile fashion. DVT prophylaxis with SCDs and early mobility postoperatively. Lovenox. A 5 cm incision was was made just proximal to the greater trochanter. Electr ocautery was utilized to divide the subcutaneous tissues and gluteal fascia down to the tip of the trochanter. The starting point was identified and a guidepin was inserted and adjusted x2 to the appropriate location. It was then overreamed with the 17 mm reamer. The guide cynthia was inserted and confirmed to be intramedullary with the fluoroscope. Length was determined to be 360 mm. I selected this because of her increased valgus neck shaft angle. The cynthia was inserted under hand power and the guide cynthia was removed. An accessory lateral incision was made and the triple trocar was inserted. The guidepin was inserted into the femoral head and adjusted x1 to be in the center center position fluoroscopically. Length was determined to be 80 mm and the appropriate reamer and drills were utilized. The tri-flange bowl was inserted completely and confirmed fluoroscopically. The proximal set screw was advanced. The distal interlocking screw was inserted using the perfect habematolel technique in a percutaneous fashion. The insertion apparatus was removed and reduction of the fluoroscope and positioning of the fracture and all hardware was confirmed in AP and lateral planes with the fluoroscope. Wounds all copiously irrigated with sterile saline. Meticulous hemostasis with electrocautery and pressure. The proximal incision was closed with #1 Vicryl for the deep fascia 0 for the subcutaneous tissues and 2 oh on the skin. Likewise for the intermediate incision 0 and 2-0 Vicryl and 2-0 Vicryl for the distal incision. [place] were utilized followed by soft sterile dressing Xerof orm 4 x 4's ABD foam tape. Patient was then awakened from anesthesia and removed from the fracture table without difficulty. After the cynthia was inserted the traction was relieved and the table was unable planed to insert the distal or locking screw. The components inserted where a Synthes long trochanteric femoral nail 130 degree angle with 11 mm diameter at 360 mm length and an 80 mm tri-flange portal. A 42 mm distal interlocking screw. She will be admitted to the hospital and have a routine course of postop intravenous about antibiotics and routine postop care. Additionally she will be able to weight-bear as tolerated with a walker and will see PT and OT. She will need acute care rehab. I attest to the content of the Intraoperative Record and any orders documented therein. Any exceptions are noted below.
--- NOTE | 2019-03-21 11:51 | Operative Report ---
Post Operative Report Pre & Post Diagnosis Operation Date: 03/21/19 12:00 Pre-Op Diagnosis: Left hip intertrochanteric fracture Post-Op Diagnosis: Left hip intertrochanteric fracture I identified the patient and participated in the time-out.: Yes Procedure Operation Date: 03/21/19 12:00 Actual Procedures p intramedullary trochanteric fixation nail left(Left) - Pravin Boss MD Surgeon Pravin Boss MD Claims Technician MANNIE Quintanilla Estimated Blood Loss 30 Findings Consistent with Post-Op Diagnosis Specimens none Complications none Disposition Accompanied Patient To Recovery: Yes Disposition: PCU Description of Procedure I was present during the entire procedure assisting with wound closure and dressing application. Please see Dr. Boss procedure note for specifics of the case. I attest to the content of the Intraoperative Record and any orders documented therein. Any exceptions are noted below.
--- NOTE | 2019-03-21 12:52 | Anesthesiology Progress Note ---
Date of Service March 21, 2019 Anesthesia Post Procedure Vital Signs Vital Signs: Temp Pulse Pulse Pulse Resp BP BP 03/21/19 12:40 97.5 F L 71 16 128/61 03/21/19 12:30 75 16 139/67 03/21/19 12:20 73 18 153/58 H 03/21/19 12:15 76 19 134/67 03/21/19 12:10 73 16 76/69 L 03/21/19 12:00 73 17 143/68 H 03/21/19 11:51 97.9 F 76 17 120/64 03/21/19 07:41 03/21/19 07:40 03/21/19 07:09 97.9 F 86 18 125/62 03/21/19 03:30 98.2 F 83 16 117/56 L 03/20/19 23:50 97.7 F 82 16 166/69 H 03/20/19 22:02 172/80 H 03/20/19 19:50 198/80 H 03/20/19 19:20 97.3 F L 71 16 211/76 H 03/20/19 17:00 69 20 174/66 H 03/20/19 16:00 69 24 198/84 H 03/20/19 15:27 69 22 189/88 H 03/20/19 15:19 66 21 189/88 H 03/20/19 14:53 70 21 196/73 H 03/20/19 14:25 97.9 F 70 16 193/106 H Pulse Ox 03/21/19 12:40 100 03/21/19 12:30 99 03/21/19 12:20 99 03/21/19 12:15 99 03/21/19 12:10 100 03/21/19 12:00 100 03/21/19 11:51 96 03/21/19 07:41 93 03/21/19 07:40 86 L 03/21/19 07:09 89 L 03/21/19 03:30 92 03/20/19 23:50 92 03/20/19 22:02 96 03/20/19 19:50 03/20/19 19:20 100 03/20/19 17:00 98 03/20/19 16:00 94 03/20/19 15:27 92 03/20/19 15:19 92 03/20/19 14:53 94 11/02/19 14:25 97 Pain Intensity Left Hip: Pain Intensity: 6 Transfer of Care Handoff Completed per policy Notes Mental Status: alert / awake / arousable and participated in evaluation Patient Amnestic to Procedure: Yes Nausea / Vomiting: adequately controlled Pain: adequately controlled Airway Patency, RR, SpO2: stable & adequate BP & HR: stable & adequate Hydration State: stable & adequate Neuraxial Anesthesia: was administered and sensory block is resolving Anesthetic Complications: no major complications apparent and Pt Satisfied with anesthetic care Notes: Pt in trigeminy in PACU but vital signs otherwise stable. Pt with no complaints. Pt stable for discharge from PACU.
[2019-03-21] MEDS ORDERED: bisacodyL 10 MG SUPP PR PRN (13:16)
[2019-03-21] MEDS ORDERED: NALOXONE HCL 0.4 MG/1 ML VIAL/CARP IV PRN (13:16)
[2019-03-21] MEDS ORDERED: MAGNESIUM HYDROXIDE SUSP 30 ML UDC PO PRN (13:16)
[2019-03-21] MEDS ORDERED: METOCLOPRAMIDE HCL INJ 5 MG/ML 2 ML VIAL IV PRN (13:16)
[2019-03-21] MEDS ORDERED: ALUMINUM/MAGNESIUM SUSP 30 ML UDC PO PRN (13:16)
[2019-03-21] MEDS ORDERED: KETOROLAC TROMETHAMINE 15 MG/ML VIAL IV PRN (13:16)
[2019-03-21] MEDS: DOCUSATE SODIUM 100 MG CAP PO SCH ×2 (13:26→19:36)
[2019-03-21] MEDS: LOSARTAN POTASSIUM 50 MG TAB PO SCH (13:26)
[2019-03-21] MEDS: AMLODIPINE BESYLATE 5 MG TAB PO SCH (13:27)
[2019-03-21] MEDS: SENNA 8.6 MG TAB PO SCH (13:27)
[2019-03-21] MEDS ORDERED: PHARMACY GLYCEMIC MGMT CONSULT PRN (13:48)
[2019-03-21] MEDS ORDERED: INSULIN DETEMIR FLEXPEN/FLEX TOUCH 100 UNITS/ML 3ML SC STA (13:57)
[2019-03-21] MEDS: INSULIN ASPART 100 UNITS/ML 3 ML PEN SC SCH ×3 (14:13→20:39)
[2019-03-21] MEDS: ONDANSETRON INJ 2 MG/ML 2 ML VIAL IV PRN (14:23)
--- NOTE | 2019-03-21 14:51 | Pharmacy Report ---
Glycemic Control Consultation - Date of Service March 21, 2019 - Scope Scope: Glycemic Pharmacist consulted by orthopedics on 03/21/19 for glycemic control and to write orders per [facility] inpatient glycemic control protocol - Objective Weight: 50.6 kg Accuchecks BSG (last 24hrs): 03/20/19 03/20/19 03/20/19 16:15 17:07 20:09 Glucose POC Glucose 54 L* 189 H 131 H 03/21/19 03/21/19 03/21/19 05:02 05:52 08:10 Glucose 182 H POC Glucose 167 H 183 H 03/21/19 03/21/19 12:20 13:46 Glucose POC Glucose 154 H 184 H Laboratory Data (last 24hrs): 03/21/19 05:02 Potassium 4.0 Carbon Dioxide 26 Anion Gap 6.0 Creatinine 0.63 Est Cr Clr Drug Dosing 54.0 - Recent Pertinent Medications Outpatient Anti-diabetic Regimen: * Levemir 50units QD, Liraglutide * A1c = 7.5 % 03/10/18 - Assessment & Plan Assessment & Plan: ASSESSMENT: * Pt is an 84yo F s/p L hip fracture after a mechanical fall. She did p/w hypoglycemia yesterday. D/w nursing, her PO intake continues to remain poor. After her procedure she was transferred to PCU after having trigeminy in the OR. * Pt is unsure of her last levemir dose. Most recent A1C was from over a year ago. There is an A1C ordered for 03/22/19. PLAN FOR INPATIENT GLYCEMIC CONTROL: * Holding outpatient oral diabetes medications * Basal insulin * Levemir scale set for tonight. Given her poor PO intake, a reduced basal dose is warranted * hold levemir for BSGs <120 * give 10 units for BSGs 120-200 * give 15 units for BSGs >200 * Bolus insulin * NovoLog per scale ACHS or Q6hrs while NPO * Goal Range: Low 120 mg/dL - High 160 mg/dL * Correction Factor: 40 mg/dL/unit * Nutritional / Prandial insulin per carb ratio of 1 unit per 12 grams CHO consumed * Please note that the plan above was derived based on current level of insulin resistance and hospital stress. These recommendations are appropriate for inpatient admission only. Plan of care upon discharge will need to be reassessed to avoid potential outpatient hypo/hyperglycemia. Thank you.
[2019-03-21] MEDS ORDERED: INSULIN DETEMIR FLEXPEN/FLEX TOUCH 100 UNITS/ML 3ML SC ONE ×2 (17:00→21:30)
[2019-03-21] MEDS: ASCORBIC ACID 500 MG TAB PO SCH (17:13)
[2019-03-21] MEDS: CEFAZOLIN 1000MG 1,000 MG/7.5 ML SYR IV SCH (17:13)
--- NOTE | 2019-03-21 18:09 | Hospitalist Progress Note ---
Date of Service March 21, 2019 Assessment & Plan (1) Fall: -The patient is an 84 year old female who presents After sustaining a fall The patient states that she tripped outside while walking out of the garage. The patient states that she did not feel faint prior to falling and notes that she fell simply because she lost her balance -hip/pelvis X ray: Acute mildly comminuted intratrochanteric fracture of the left femur. Right hip total joint arthroplasty without evidence of complication. Underwent ORIF of left hip today Postoperative day 0 Postoperatively, at PACU patient noted to have arrhythmia, penny Was sent to PCU for telemetry Heart rate has been stable, since this morning Occasional PVCs noted Patient does not have any prior history of cardiac arrhythmia Transient episodes of PVCs possibly secondary to anesthetic meds, Will watch on telemetry overnight Patient denies of any symptom of palpitation, dizzy spell or shortness of breath Electrolytes, hypokalemic Monitor in telemetry overnight, And to transfer to [facility]'s surgical orthopedics floor tomorrow if remains stable (2) Fracture of left hip: -Acute mildly comminuted intratrochanteric fracture of the left femur -Appreciate input/help from Dr. Boss of orthopedics - Status post ORIF of left hip: Intramedullary trochanteric fixation nail of left hip fracture Tolerating well postop -pain control medications or acetaminophen prn for mild pain or fever, prn oxycodone for moderate pain, prn dilaudid for severe pain -bowel regimen ordered o prevent ileus or constipation due to narcotic pain medication -Having adequate urine output and Carroll, and is to discontinue Carroll catheter tomorrow as patient's activity is improved (3) Diabetes mellitus with hypoglycemia: -patient was on Victoza and patient confirms 50 units daily of Detemir -Hypoglycemic episode noted on admission glucose as 63, glucose remained low as 53 on finger stick glucose repeat check -Given dextrose 50% of 50 ml Postoperatively blood sugar noted to be in 200, Pharmacy consulted for glycemic management, patient input Patient's home antidiabetic regimen: Levemir 50 units daily Victoza/liraglutide 1.8 SC daily Ordered for hemoglobin A1c, lab pending (4) Hypertension: Had brief episode of hypertensive urgency on admission BP was 198/80 -elevated blood pressure contributed by pain and stress of hip fracture and underlying hypertension history - Blood pressure stable now, SBP between 120-130 She is continued with home dose of antihypertensives: Losartan 50 mg daily, amlodipine 5 mg daily DVT prophylaxis: Moderate to high risk secondary to recent hip surgery Subcu Lovenox ordered by orthopedics team which will be continued Full Code Disposition: To be determined For PT OT, Patient may need acute rehab post discharge from hospital Contacts: Fran Olivo phone #[phone] Updated over phone Subjective Patient is awake and alert, denies of any pain or discomfort, No arrhythmia noted on telemetry remains in sinus with stable blood pressure Patient does report of having hip pain at the surgical's site with movement, Intermittent pain medication which has been helping No fever or chills, no cough no shortness of breath Physical Exam Constitutional: cooperative Eyes: PERRL, conjunctivae normal, anicteric sclerae EOM intact bilaterally ENMT: external ear and nose normal, oropharynx normal Neck: normal visual inspection Respiratory: normal respiratory effort, lungs clear to auscultation Cardiovascular: Rate/Rhythm: regular rate and regular rhythm Gastrointestinal (Abdomen): normal bowel sounds, soft, nontender, no hepatosplenomegaly Musculoskeletal: Hip: + surgical incision (Status post left hip ORIF) Neurologic: PERRL, EOMI, accommodation nl, no face palsy, no dysarthria Psychiatric: Orientation: alert and cooperative Results & Data Vital Signs (Past 12 Hours) Vital Signs Temp Pulse Pulse Pulse Resp BP BP 03/21/19 15:55 81 03/21/19 15:41 85 17 149/80 H 03/21/19 15:14 82 03/21/19 13:18 36.5 C 77 14 138/94 03/21/19 12:50 73 16 139/59 L 03/21/19 12:40 36.4 C L 71 16 128/61 03/21/19 12:30 75 16 139/67 03/21/19 12:20 73 18 153/58 H 03/21/19 12:15 76 19 134/67 03/21/19 12:10 73 16 76/69 L 03/21/19 12:00 73 17 143/68 H 03/21/19 11:51 36.6 C 76 17 120/64 03/21/19 07:41 03/21/19 07:40 03/21/19 07:09 36.6 C 86 18 125/62 Pulse Ox 03/21/19 15:55 03/21/19 15:41 98 03/21/19 15:14 03/21/19 13:18 94 03/21/19 12:50 100 03/21/19 12:40 100 03/21/19 12:30 99 03/21/19 12:20 99 03/21/19 12:15 99 03/21/19 12:10 100 03/21/19 12:00 100 03/21/19 11:51 96 03/21/19 07:41 93 03/21/19 07:40 86 L 03/21/19 07:09 89 L (1) Fracture of left hip Encounter type: initial encounter Fracture type: closed Qualified Code(s): S72.002A - Fracture of unspecified part of neck of left femur, initial encounter for closed fracture (2) Fall Encounter type: initial encounter Qualified Code(s): W19.XXXA - Unspecified fall, initial encounter
[2019-03-21] MEDS ORDERED: SENNA 8.6 MG TAB PO SCH (21:00)
[2019-03-21] MEDS ORDERED: DOCUSATE SODIUM 100 MG CAP PO SCH (21:00)
[2019-03-22] MEDS: ENOXAPARIN INJ 30 MG/0.3 ML SYR SQ SCH (00:02)
[2019-03-22] MEDS: SOLIFENACIN 5 MG SCH ×2 (00:05→07:38)
[2019-03-22] MEDS: CEFAZOLIN 1000MG 1,000 MG/7.5 ML SYR IV SCH (02:26)
[2019-03-22] MEDS: TRAMADOL HCL 50 MG TABLET PO PRN ×2 (02:32→13:42)
[2019-03-22 06:16] LABS: Estimated Average Glucose 154 mg/dl
[2019-03-22 06:34] LABS: Basophils # (auto) 0.01 K/uL (0-0.2); Basophils % (auto) 0.1 %; Hematocrit (blood only) 31.3 % (37-47); Hemoglobin 10.2 g/dL (12.0-16.0); Immature Granulocytes # (auto) 0.03 K/uL (0.00-0.02); Immature Granulocytes % (auto) 0.3 %; Lymphocytes # (auto) 1.34 K/uL (1.2-3.4); Lymphocytes % (auto) 12.9 %; Mean Corpuscular Hemoglobin 26.8 pg (25-34); Mean Corpuscular Hgb Conc 32.6 g/dL (32-36); Mean Corpuscular Volume 82.2 fL (80-100); Mean Platelet Volume 9.5 fL (7.4-10.4); Monocytes # (auto) 1.02 K/uL (0.11-0.59); Monocytes % (auto) 9.8 %; Neutrophils # (auto) 8.01 K/uL (1.4-6.5); Neutrophils % (auto) 76.9 %; Platelet Count 210 K/uL (130-400); RDW Coefficient of Variation 14.5 % (11.5-14.5); RDW Standard Deviation 43.5 fL (36.4-46.3); Red Blood Count 3.81 M/uL (4.2-5.4); White Blood Count 10.41 K/uL (4.8-10.8)
[2019-03-22 07:07] LABS: BUN Creatinine Ratio 21.7 (10-20); Calcium 8.5 mg/dl (8.5-10.1); Creatinine Clr Calc Pharmacy 57.7 ml/min; Est GFR (African American) 98.2; Est GFR (Non-African American) 84.8; Potassium 3.8 mmol/L (3.5-5.1)
[2019-03-22] MEDS: MULTIVITAMIN TAB PO SCH (07:39)
[2019-03-22] MEDS: DOCUSATE SODIUM 100 MG CAP PO SCH ×2 (07:39→20:08)
[2019-03-22] MEDS: SENNA 8.6 MG TAB PO SCH (07:39)
[2019-03-22] MEDS: AMLODIPINE BESYLATE 5 MG TAB PO SCH (07:39)
[2019-03-22] MEDS: ASCORBIC ACID 500 MG TAB PO SCH ×2 (07:39→17:00)
[2019-03-22] MEDS: LOSARTAN POTASSIUM 50 MG TAB PO SCH (07:39)
[2019-03-22] MEDS: INSULIN ASPART 100 UNITS/ML 3 ML PEN SC SCH ×4 (07:41→21:03)
--- NOTE | 2019-03-22 08:09 | Anesthesiology Progress Note ---
Date of Service March 22, 2019 Anesthesia Post Procedure Vital Signs Vital Signs: Temp Pulse Pulse Resp BP BP Pulse Ox 03/22/19 07:51 141/62 H 03/22/19 07:46 36.6 C 96 H 16 162/126 H 90 03/22/19 02:33 37.5 C 92 H 20 141/57 H 95 03/21/19 23:00 36.5 C 94 H 22 124/68 96 03/21/19 19:25 36.8 C 90 16 132/50 L 100 03/21/19 15:55 81 03/21/19 15:41 85 17 149/80 H 98 03/21/19 15:14 82 03/21/19 13:18 36.5 C 77 14 138/94 94 03/21/19 12:50 73 16 139/59 L 100 03/21/19 12:40 36.4 C L 71 16 128/61 100 03/21/19 12:30 75 16 139/67 99 03/21/19 12:20 73 18 153/58 H 99 03/21/19 12:15 76 19 134/67 99 03/21/19 12:10 73 16 76/69 L 100 03/21/19 12:00 73 17 143/68 H 100 03/21/19 11:51 36.6 C 76 17 120/64 96 Pain Intensity Left Hip: Pain Intensity: 5 Notes Mental Status: alert / awake / arousable and participated in evaluation Patient Amnestic to Procedure: Yes Nausea / Vomiting: adequately controlled Pain: adequately controlled Airway Patency, RR, SpO2: stable & adequate BP & HR: stable & adequate Hydration State: stable & adequate Neuraxial Anesthesia: was administered and sensory block resolved Anesthetic Complications: no major complications apparent and Pt Satisfied with anesthetic care
[2019-03-22] MEDS ORDERED: INSULIN GLARGINE SOLOSTAR 100 UNITS/ML 3 ML PEN SC SCH (09:00)
--- NOTE | 2019-03-22 11:28 | Orthopedic Progress Note ---
Date of Service March 22, 2019 Assessment & Plan (1) Fracture of left hip: S/P intramedullary trochanteric fixation nail left hip performed by Dr Boss 03-21-19. 1)Ice left hip as needed for pain 2)Pain medication per medicine for pain control 3)WBAT LLE with walker 4)Continue PT/OT 5)DVT prophylaxis with foot pumps in bed and lovenox 6)Dressings to be changed by /PA 03/23/19 7)DC plans to snf/rehab Present on Admission?: Yes Subjective Patient is awake and alert. Family at bedside. Working with Physical Therapy. At rest left hip pain is controlled. Does have pain with movement. Tolerating PO diet. Case management yet to speak to patient regarding D/C plans. Denies f/c/s, chest pain, SOB. Physical Exam Physical Exam: Carroll intact. Left hip dressings intact. Pain left hip with AA ROM, lesser with log rolling. L LE with 1+ capillary refill, sensation intact to light touch. Cannot palpate pulse to Left DP which is same as preop. 5/5 L EHL, TA, gastroc strength. Trace pitting edema L LE. Heel pads bilaterally placed. Foot pumps noted on bed. Results & Data Vital Signs (Past 12 Hours) Vital Signs Temp Pulse Resp BP Pulse Ox Pulse Ox 03/22/19 08:00 92 03/22/19 07:51 141/62 H 03/22/19 07:46 36.6 C 96 H 16 162/126 H 90 03/22/19 02:33 37.5 C 92 H 20 141/57 H 95 Laboratory Results 03/22/19 03/22/19 03/22/19 Range/Units 07:21 06:07 06:07 WBC 10.41 (4.8-10.8) K/uL RBC 3.81 L (4.2-5.4) M/uL Hgb 10.2 L (12.0-16.0) g/dL Hct 31.3 L (37-47) % MCV 82.2 (80-100) fL MCH 26.8 (25-34) pg MCHC 32.6 (32-36) g/dL RDW Std Deviation 43.5 (36.4-46.3) fL RDW Coeff of Clem 14.5 (11.5-14.5) % Plt Count 210 (130-400) K/uL MPV 9.5 (7.4-10.4) fL Immature Gran % (Auto) 0.3 % Neut % (Auto) 76.9 % Lymph % (Auto) 12.9 % [place] % (Auto) 9.8 % Eos % (Auto) 0.0 % Baso % (Auto) 0.1 % Immature Gran # (Auto) 0.03 H (0.00-0.02) K/uL Neut # (Auto) 8.01 H (1.4-6.5) K/uL Lymph # (Auto) 1.34 (1.2-3.4) K/uL [place] # (Auto) 1.02 H (0.11-0.59) K/uL Eos # (Auto) 0.00 (0-0.5) K/uL Baso # (Auto) 0.01 (0-0.2) K/uL Sodium 135 L (136-145) mmol/L Potassium 3.8 (3.5-5.1) mmol/L Chloride 102 (98-107) mmol/L Carbon Dioxide 28 (21-32) mmol/L Anion Gap 5.0 (3-11) BUN 13 (7-18) mg/dl Creatinine 0.59 L (0.6-1.2) mg/dl Est Cr Clr Drug Dosing 57.7 ml/min Est GFR ( Amer) 98.2 Est GFR (Non-Af Amer) 84.8 BUN/Creatinine Ratio 21.7 H (10-20) Glucose 130 H (70-99) mg/dl POC Glucose 129 H (70-99) Estimat Average Glucose mg/dl Hemoglobin A1c (4.5-5.6) % Calcium 8.5 (8.5-10.1) mg/dl 03/21/19 03/21/19 03/21/19 Range/Units 20:11 16:25 13:46 WBC (4.8-10.8) K/uL RBC (4.2-5.4) M/uL Hgb (12.0-16.0) g/dL Hct (37-47) % MCV (80-100) fL MCH (25-34) pg MCHC (32-36) g/dL RDW Std Deviation (36.4-46.3) fL RDW Coeff of Clem (11.5-14.5) % Plt Count (130-400) K/uL MPV (7.4-10.4) fL Immature Gran % (Auto) % Neut % (Auto) % Lymph % (Auto) % [place] % (Auto) % Eos % (Auto) % Baso % (Auto) % Immature Gran # (Auto) (0.00-0.02) K/uL Neut # (Auto) (1.4-6.5) K/uL Lymph # (Auto) (1.2-3.4) K/uL [place] # (Auto) (0.11-0.59) K/uL Eos # (Auto) (0-0.5) K/uL Baso # (Auto) (0-0.2) K/uL Sodium (136-145) mmol/L Potassium (3.5-5.1) mmol/L Chloride (98-107) mmol/L Carbon Dioxide (21-32) mmol/L Anion Gap (3-11) BUN (7-18) mg/dl Creatinine (0.6-1.2) mg/dl Est Cr Clr Drug Dosing ml/min Est GFR ( Amer) Est GFR (Non-Af Amer) BUN/Creatinine Ratio (10-20) Glucose (70-99) mg/dl POC Glucose 217 H 220 H 184 H (70-99) Estimat Average Glucose mg/dl Hemoglobin A1c (4.5-5.6) % Calcium (8.5-10.1) mg/dl 03/21/19 03/21/19 Range/Units 12:20 05:02 WBC (4.8-10.8) K/uL RBC (4.2-5.4) M/uL Hgb (12.0-16.0) g/dL Hct (37-47) % MCV (80-100) fL MCH (25-34) pg MCHC (32-36) g/dL RDW Std Deviation (36.4-46.3) fL RDW Coeff of Clem (11.5-14.5) % Plt Count (130-400) K/uL MPV (7.4-10.4) fL Immature Gran % (Auto) % Neut % (Auto) % Lymph % (Auto) % [place] % (Auto) % Eos % (Auto) % Baso % (Auto) % Immature Gran # (Auto) (0.00-0.02) K/uL Neut # (Auto) (1.4-6.5) K/uL Lymph # (Auto) (1.2-3.4) K/uL [place] # (Auto) (0.11-0.59) K/uL Eos # (Auto) (0-0.5) K/uL Baso # (Auto) (0-0.2) K/uL Sodium (136-145) mmol/L Potassium (3.5-5.1) mmol/L Chloride (98-107) mmol/L Carbon Dioxide (21-32) mmol/L Anion Gap (3-11) BUN (7-18) mg/dl Creatinine (0.6-1.2) mg/dl Est Cr Clr Drug Dosing ml/min Est GFR ( Amer) Est GFR (Non-Af Amer) BUN/Creatinine Ratio (10-20) Glucose (70-99) mg/dl POC Glucose 154 H (70-99) Estimat Average Glucose 154 mg/dl Hemoglobin A1c 7.0 H (4.5-5.6) % Calcium (8.5-10.1) mg/dl (1) Fracture of left hip Encounter type: initial encounter Fracture type: closed Qualified Code(s): S72.002A - Fracture of unspecified part of neck of left femur, initial encounter for closed fracture
--- NOTE | 2019-03-22 13:10 | Pharmacy Report ---
Pharmacy Glycemic Short Note 2 - Date of Service March 22, 2019 - Glycemic Short BSG Results (Last 24 hours): 03/21/19 03/21/19 03/21/19 13:46 16:25 20:11 Glucose POC Glucose 184 H 220 H 217 H 03/22/19 03/22/19 03/22/19 06:07 07:21 11:58 Glucose 130 H POC Glucose 129 H 252 H Outpatient Anti-diabetic Regimen: * Levemir 50units QD, Liraglutide * A1c = 7% on 03/21/19 ASSESSMENT: * Pt is an 84yo F s/p L hip fracture after a mechanical fall now POD 1 * Hypoglycemia noted on admission likely 2nd too aggressive outpatient Levemir dosing 2nd poor po intake (note - this likely covers both basal and prandial needs as outpatient as she is not on bolus insulin as outpatient) * Novolog parameters are already rather tight (between weight-based moderate and severe stress estimate) and therefore will not tighten for now despite noted hyperglycemia the last two days as these values can be explained by reasons other than insufficient Novolog parameters * BSG increased to 220 mg/dL at dinner yesterday, but patient refused Novolog scheduled at lunch * BSG increased to 252 mg/dL at lunch today, but no insulin was administered with breakfast and therefore suspect po consumption from breakfast to lunch that was not covered with Novolog * Total of 25 units of Levemir administered yesterday - will continue PM dosing up to a max of 25 units as AM fasting BSG was in goal range today PLAN FOR INPATIENT GLYCEMIC CONTROL: * Holding outpatient oral diabetes medications * Basal insulin: Levemir SC HS based on BSG: * 15 units for BSGs <120 * 20 units for BSGs 120-180 * 25 units for BSGs >180 * Bolus insulin * NovoLog per scale ACHS or Q6hrs while NPO * Goal Range: Low 120 mg/dL - High 160 mg/dL * Correction Factor: 40 mg/dL/unit * Nutritional / Prandial insulin per carb ratio of 1 unit per 12 grams CHO consumed Discharge recommendation * A1c of 7% may be slightly below goal for this patient, and hypoglycemia on admission noted. * Patient may benefit from a reduction in outpatient Levemir, with further adjustment prn poor po intake
--- NOTE | 2019-03-22 18:29 | Hospitalist Progress Note ---
Date of Service March 22, 2019 Assessment & Plan (1) Fall: -The patient is an 84 year old female who presents After sustaining a fall The patient states that she tripped outside while walking out of the garage. The patient states that she did not feel faint prior to falling and notes that she fell simply because she lost her balance -hip/pelvis X ray: Acute mildly comminuted intratrochanteric fracture of the left femur. Right hip total joint arthroplasty without evidence of complication. Underwent ORIF of left hip Postoperative day 1 cont Pt/OT will need rehab social service consulted for DC planning (2) Fracture of left hip: -Acute mildly comminuted intratrochanteric fracture of the left femur -Appreciate input/help from Dr. Boss of orthopedics - Status post ORIF of left hip: Intramedullary trochanteric fixation nail of left hip fracture Tolerating well postop -pain control medications or acetaminophen prn for mild pain or fever, prn oxycodone for moderate pain, prn dilaudid for severe pain -bowel regimen ordered to prevent ileus or constipation due to narcotic pain medication - (3) Diabetes mellitus with hypoglycemia: -patient was on Victoza and patient confirms 50 units daily of Detemir -Hypoglycemic episode noted on admission glucose as 63, glucose remained low as 53 on finger stick glucose repeat check -Given dextrose 50% of 50 ml Postoperatively blood sugar noted to be in 200, Pharmacy consulted for glycemic management, apprecaite input Patient's home antidiabetic regimen: Levemir 50 units daily Victoza/liraglutide 1.8 SC daily (4) Hypertension: Had brief episode of hypertensive urgency on admission BP was 198/80 -elevated blood pressure contributed by pain and stress of hip fracture and underlying hypertension history - Blood pressure stable now, SBP between 120-130 She is continued with home dose of antihypertensives: Losartan 50 mg daily, amlodipine 5 mg daily DVT prophylaxis: Moderate to high risk secondary to recent hip surgery Subcu Lovenox ordered by orthopedics team which will be continued Full Code Disposition: cont PT/OT Patient may need acute rehab post discharge from hospital Contacts: Fran Olivo phone #[phone] Updated over phone Subjective awake and alert complains of left hip pain with movement no discomfort at rest able to participate in PT/OT no complain of chest pain or SOB , no fever or chills Physical Exam Constitutional: cooperative Eyes: PERRL, conjunctivae normal, anicteric sclerae EOM intact bilaterally ENMT: external ear and nose normal, oropharynx normal Neck: normal visual inspection Respiratory: normal respiratory effort, lungs clear to auscultation Cardiovascular: Rate/Rhythm: regular rate and regular rhythm Gastrointestinal (Abdomen): normal bowel sounds, soft, nontender, no hepatosplenomegaly Musculoskeletal: Hip: + surgical incision (Status post left hip ORIF) Neurologic: PERRL, EOMI, accommodation nl, no face palsy, no dysarthria Psychiatric: Orientation: alert and cooperative Results & Data Vital Signs (Past 12 Hours) Vital Signs Temp Pulse Pulse Resp BP BP Pulse Ox 03/22/19 15:08 36.7 C 81 16 112/65 90 03/22/19 09:45 36.9 C 92 H 16 125/69 92 03/22/19 08:00 03/22/19 07:51 141/62 H 03/22/19 07:46 36.6 C 96 H 16 162/126 H 90 Pulse Ox 03/22/19 15:08 03/22/19 09:45 03/22/19 08:00 92 03/22/19 07:51 03/22/19 07:46 (1) Fracture of left hip Encounter type: initial encounter Fracture type: closed Qualified Code(s): S72.002A - Fracture of unspecified part of neck of left femur, initial encounter for closed fracture (2) Fall Encounter type: initial encounter Qualified Code(s): W19.XXXA - Unspecified fall, initial encounter
[2019-03-22] MEDS ORDERED: SODIUM CHLORIDE 0.9% 1000ML 1,000 ML IV SCH (18:30)
[2019-03-22] MEDS: INSULIN DETEMIR FLEXPEN/FLEX TOUCH 100 UNITS/ML 3ML SC SCH (21:02)
[2019-03-23] MEDS: ENOXAPARIN INJ 30 MG/0.3 ML SYR SQ SCH (00:49)
[2019-03-23] MEDS ORDERED: INSULIN ASPART 100 UNITS/ML 3 ML PEN SC ONE (02:00)
[2019-03-23] MEDS: TRAMADOL HCL 50 MG TABLET PO PRN ×2 (04:35→11:22)
[2019-03-23 06:22] LABS: Hematocrit (blood only) 27.1 % (37-47)
--- NOTE | 2019-03-23 09:12 | Pharmacy Report ---
Pharmacy Glycemic Short Note 2 - Date of Service March 23, 2019 - Glycemic Short BSG Results (Last 24 hours): 03/22/19 03/22/19 03/22/19 11:58 17:24 20:29 POC Glucose 252 H 280 H 289 H 03/23/19 03/23/19 01:59 08:18 POC Glucose 144 H 114 H Outpatient Anti-diabetic Regimen: * Levemir 50 units SC daily * Liraglutide * A1c = 7% on 03/21/19 ASSESSMENT: * Pt is an 84yo F s/p L hip fracture after a mechanical fall now POD 2 * Hypoglycemia noted on admission likely 2nd too aggressive outpatient Levemir dosing 2nd poor po intake (note - this likely covers both basal and prandial needs as outpatient as she is not on bolus insulin as outpatient) * Post-prandial BSG's at dinner and bedtime yesterday were also elevated >180 mg/dL - correction factor tightened at bedtime and overnight BSG now back to goal range * Will keep tighter correction factor * Will also tighten CHO ratio at this time as patient consumed a significant amount of CHO with lunch and dinner which likely contributed to post-prandial elevations yesterday * Total of 25 units of Levemir administered again yesterday and AM fasting BSG still in goal range. Will adjust parameters slightly as it seems like 25 units is an appropriate dose (as long as the patient does not have lower BSG's increasing risk for overnight/AM hypoglycemia) PLAN FOR INPATIENT GLYCEMIC CONTROL: * Holding outpatient oral diabetes medications * Basal insulin: Levemir SC HS based on BSG: * 15 units for BSGs < 100 mg/dL * 20 units for BSGs 100-120 mg/dL * 25 units for BSGs > 120 mg/dL * Bolus insulin * NovoLog per scale ACHS or Q6hrs while NPO * Goal Range: Low 120 mg/dL - High 160 mg/dL * Correction Factor: 30 mg/dL/unit * Nutritional / Prandial insulin per carb ratio of 1 unit per 10 grams CHO consumed Discharge recommendation * A1c of 7% may be slightly below goal for this patient, and hypoglycemia on admission noted. * Patient may benefit from a reduction in outpatient Levemir, with further adjustment prn poor po intake
--- NOTE | 2019-03-23 09:27 | Orthopedic Progress Note ---
Date of Service March 23, 2019 Assessment & Plan (1) Fracture of left hip: POD 2; S/P intramedullary trochanteric fixation nail left hip performed by Dr Boss 03-21-19. 1)Dressings changed. Nurses may change dressings as needed. On POD 4, if not actively draining, incision may be open to air and shower normally. 2)Ice left hip as needed for pain 2)Pain medication per medicine for pain control 3)WBAT LLE with walker 4)Continue PT/OT 5)DVT prophylaxis with foot pumps/SCDs in bed and lovenox 6)DC plans to snf/rehab 7)Scheduled f/u appointment with Dr Boss's office on 04-02-19 at 9:45am I have seen and evaluated the patient and AM in agreement with the treatment plan. PSS Subjective Patient is awake and alert. Resting in bed. She said she used bedside commode earlier. Has gas. No BM yet. Carroll in place. Not much of an appetite but tolerating PO diet. At rest left hip pain is controlled. Does have pain with movement. Case management spoke with patient yesterday. Referrals made for placement. Denies f/c/s, chest pain, SOB. Physical Exam Physical Exam: Left hip dressings removed. Dry blood noted. No active drai nage. No S/S of infection. NO redness or warmth. Kacy intact. Less pain today with log rolling. B LE SCDs and foots pumps on. Trace PE to L LE. Sensation intact. 5/5 EHL, TA, gastroc. No change in vascular exam with absent DP pulse. Faint Posterior Tib. Negative homans, calve soft Bilaterally. Results & Data Vital Signs (Past 12 Hours) Vital Signs Temp Pulse Pulse Resp BP Pulse Ox Pulse Ox 03/23/19 08:22 90 03/23/19 07:57 92 03/23/19 07:30 36.4 C L 80 16 106/60 88 L 03/22/19 23:15 37.3 C 83 18 115/61 92 Laboratory Results 03/23/19 03/23/19 03/23/19 Range/Units 08:18 05:35 01:59 Hgb 9.0 L (12.0-16.0) g/dL Hct 27.1 L (37-47) % POC Glucose 114 H 144 H (70-99) 03/22/19 03/22/19 03/22/19 Range/Units 20:29 17:24 11:58 Hgb (12.0-16.0) g/dL Hct (37-47) % POC Glucose 289 H 280 H 252 H (70-99) (1) Fracture of left hip Encounter type: initial encounter Fracture type: closed Qualified Code(s): S72.002A - Fracture of unspecified part of neck of left femur, initial encounter for closed fracture
[2019-03-23] MEDS: INSULIN ASPART 100 UNITS/ML 3 ML PEN SC SCH ×4 (09:29→21:29)
[2019-03-23] MEDS: ASCORBIC ACID 500 MG TAB PO SCH ×2 (09:32→16:32)
[2019-03-23] MEDS: MULTIVITAMIN TAB PO SCH (09:34)
[2019-03-23] MEDS: LOSARTAN POTASSIUM 50 MG TAB PO SCH (09:34)
[2019-03-23] MEDS: AMLODIPINE BESYLATE 5 MG TAB PO SCH (09:35)
[2019-03-23] MEDS: SENNA 8.6 MG TAB PO SCH (09:35)
[2019-03-23] MEDS: DOCUSATE SODIUM 100 MG CAP PO SCH ×2 (09:58→21:28)
--- NOTE | 2019-03-23 17:04 | Hospitalist Progress Note ---
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 Underwent ORIF of left hip with intramedullary cynthia placement Postoperative day 2 cont Pt/OT will need rehab appreciate social service consult for DC planning -referral made to [facility] , awating insurance auth (2) Fracture of left hip: -Acute mildly comminuted intratrochanteric fracture of the left femur -Appreciate input/help from Dr. Boss of orthopedics - Status post ORIF of left hip: Intramedullary trochanteric fixation nail of left hip fracture recovering well post op cont PT/OT referral for rehab placed -bowel regimen ordered to prevent ileus or constipation due to narcotic pain medication ACUTE BLOOD LOSS ANEMIA : due to post surgical hemorrhege /post op status Hb drop 11-> 9 noted no sign of hemodynamic compromise , pt remains asymptomatic no indication for transfusion , repeat H&H in AM current guideline recommends : PRBC transfusion for Hb < 7 ( in a setting of no active coronary artery disease ) - (3) Diabetes mellitus with hypoglycemia: -patient was on Victoza and patient confirms 50 units daily of Detemir -Hypoglycemic episode noted on admission glucose as 63, glucose remained low as 53 on finger stick glucose repeat check -Given dextrose 50% of 50 ml Postoperatively blood sugar noted to be in 200, Patient's home antidiabetic regimen: Levemir 50 units daily Victoza/liraglutide 1.8 SC daily HB A1c 7 Pharmacy consulted for glycemic management, appreciate input Hypoglycemia noted on admission likely due to aggressive outpatient Levemir dosing ( 50 units ) with poor PO intake recommends on discharge reducing dose to 25 units daily will be an appropriate dose (4) Hypertension: Had brief episode of hypertensive urgency on admission BP was 198/80 -elevated blood pressure contributed by pain and stress of hip fracture and underlying hypertension history - Blood pressure stable now, She is continued with home dose of antihypertensives: Losartan 50 mg daily, amlodipine 5 mg daily-with holding parameters DVT prophylaxis: Moderate to high risk secondary to recent hip surgery Subcu Lovenox ordered by orthopedics team which will be continued Full Code Disposition: cont PT/OT Patient may need acute rehab post discharge from hospital referral made to [facility] Contacts: Fran Olivo phone #[phone] Subjective offers no new complain no fever or chills pain in left hip controlled Physical Exam Constitutional: cooperative Eyes: PERRL, conjunctivae normal, anicteric sclerae EOM intact bilaterally ENMT: external ear and nose normal, oropharynx normal Neck: normal visual inspection Respiratory: normal respiratory effort, lungs clear to auscultation Cardiovascular: Rate/Rhythm: regular rate and regular rhythm Gastrointestinal (Abdomen): normal bowel sounds, soft, nontender, no hepatosplenomegaly Musculoskeletal: Hip: + surgical incision (Status post left hip ORIF) Neurologic: PERRL, EOMI, accommodation nl, no face palsy, no dysarthria Psychiatric: Orientation: alert and cooperative Results & Data Vital Signs (Past 12 Hours) Vital Signs Temp Pulse Resp BP BP Pulse Ox Pulse Ox 03/23/19 15:31 36.7 C 78 16 106/61 93 03/23/19 11:00 37.1 C 74 18 127/71 91 03/23/19 08:22 90 03/23/19 07:57 92 03/23/19 07:30 36.4 C L 80 16 106/60 88 L (1) Fracture of left hip Encounter type: initial encounter Fracture type: closed Qualified Code(s): S72.002A - Fracture of unspecified part of neck of left femur, initial encounter for closed fracture (2) Fall Encounter type: initial encounter Qualified Code(s): W19.XXXA - Unspecified fall, initial encounter
[2019-03-23] MEDS: INSULIN DETEMIR FLEXPEN/FLEX TOUCH 100 UNITS/ML 3ML SC SCH (21:29)
[2019-03-24] MEDS: ENOXAPARIN INJ 30 MG/0.3 ML SYR SQ SCH (01:01)
[2019-03-24 05:36] LABS: Basophils # (auto) 0.01 K/uL (0-0.2); Basophils % (auto) 0.1 %; Eosinophils # (auto) 0.08 K/uL (0-0.5); Eosinophils % (auto) 0.9 %; Hematocrit (blood only) 26.5 % (37-47); Immature Granulocytes # (auto) 0.01 K/uL (0.00-0.02); Immature Granulocytes % (auto) 0.1 %; Lymphocytes # (auto) 1.32 K/uL (1.2-3.4); Mean Corpuscular Hemoglobin 27.2 pg (25-34); Mean Corpuscular Volume 80.1 fL (80-100); Mean Platelet Volume 9.3 fL (7.4-10.4); Monocytes # (auto) 0.82 K/uL (0.11-0.59); Monocytes % (auto) 9.3 %; Neutrophils # (auto) 6.57 K/uL (1.4-6.5); Neutrophils % (auto) 74.6 %; Platelet Count 215 K/uL (130-400); RDW Coefficient of Variation 14.3 % (11.5-14.5); RDW Standard Deviation 41.4 fL (36.4-46.3); Red Blood Count 3.31 M/uL (4.2-5.4); White Blood Count 8.81 K/uL (4.8-10.8)
[2019-03-24 06:12] LABS: Creatinine Clr Calc Pharmacy 66.8 ml/min; Est GFR (African American) 103.1; Est GFR (Non-African American) 88.9
--- NOTE | 2019-03-24 08:31 | Hospitalist Progress Note ---
Date of Service March 24, 2019 Assessment & Plan (1) Fall: -The patient is an 84 year old female who presents After sustaining a fall possible pathologic Fx due to underlying osteoporosis -causing Acute mildly comminuted intratrochanteric fracture of the left femur-noted in Hip/Pelvis Xray after falling from minimum height The patient states that she tripped outside while walking out of the garage Underwent ORIF of left hip with intramedullary cynthia placement Postoperative day 3 cont PT/OT will need rehab Plan to DC to [facility] tomorrow morning (2) Fracture of left hip: -Acute mildly comminuted intratrochanteric fracture of the left femur -Appreciate input/help from Dr. Boss of orthopedics Plan to follow up with Dr Boss's office on 04-02-19 at 9:45am - Status post ORIF of left hip: Intramedullary trochanteric fixation nail of left hip fracture recovering well post op cont PT/OT -bowel regimen ordered to prevent ileus or constipation due to narcotic pain medication but patient still developed constipation, will continue to add to the regimen ACUTE BLOOD LOSS ANEMIA : due to post surgical hemorrhage /post op status Hb drop 11-> 9 noted Today hemoglobin remains 9.0, stable no sign of hemodynamic compromise , pt remains asymptomatic no indication for transfusion repeat H&H in AM current guideline recommends : PRBC transfusion for Hb < 7 ( in a setting of no active coronary artery disease ) - (3) Diabetes mellitus with hypoglycemia: -patient was on Victoza and patient confirms 50 units daily of Detemir -Hypoglycemic episode noted on admission glucose as 63, glucose remained low as 53 on finger stick glucose repeat check -Given dextrose 50% of 50 ml Postoperatively blood sugar noted to be in 200, Patient's home antidiabetic regimen: Levemir 50 units daily Victoza/liraglutide 1.8 SC daily HB A1c 7 Pharmacy consulted for glycemic management, appreciate input Hypoglycemia noted on admission likely due to aggressive outpatient Levemir dosing ( 50 units ) with poor PO intake recommends on discharge reducing dose to 25 units daily will be an appropriate dose (4) Hypertension: Had brief episode of hypertensive urgency on admission BP was 198/80 -elevated blood pressure contributed by pain and stress of hip fracture and underlying hypertension history - Blood pressure stable now, She is continued with home dose of antihypertensives: Losartan 50 mg daily, amlodipine 5 mg daily-with holding parameters DVT prophylaxis: Moderate to high risk secondary to recent hip surgery Subcu Lovenox ordered by orthopedics team which will be continued Full Code Disposition:D/C to [facility] tomorrow Contacts: Fran Olivo phone #[phone] (5) Constipation: Bowel regimen ordered, but despite that patient has been constipated, most likely secondary to opiate pain medications Will add to her bowel regimen, and will closely monitor She is passing gas and she has good p.o. intake, bowel sounds normoactive Subjective Patient is lying in bed, in no acute distress. She denies any fevers, chills, shortness of breath, chest pain, abdominal pain. She states that she has been constipated. She has been passing gas and she has good p.o. intake. Review of Systems Review of Systems: All systems reviewed & are unremarkable except as noted in HPI & below Constitutional: no fever, no chills and no fatigue Respiratory: no cough and no dyspnea Cardiovascular: no chest pain and no palpitations Gastrointestinal: + constipation; no abdominal pain, no nausea and no vomiting Physical Exam Physical Exam: Constitutional: Elderly female lying in bed in no acute distress Eyes: PERRL, EOMI, conjunctivae normal, anicteric sclerae ENMT: external ear and nose normal, oropharynx normal Neck: normal visual inspection Respiratory: normal respiratory effort, lungs clear to auscultation, no wheezing, rhonchi or crackles Cardiovascular: Rate/Rhythm: regular rate and regular rhythm Gastrointestinal (Abdomen): normal bowel sounds, soft, nontender, no hepatosplenomegaly Musculoskeletal: Hip: + surgical incision (Status post left hip ORIF) Neurologic: PERRL, EOMI, accommodation nl, no face palsy, no dysarthria Psychiatric: Orientation: alert and cooperative Results & Data Vital Signs (Past 12 Hours) Vital Signs Temp Pulse Pulse Resp BP BP Pulse Ox 03/24/19 08:06 36.7 C 77 18 132/63 95 03/24/19 08:04 03/23/19 23:27 36.7 C 82 16 108/69 94 Pulse Ox 03/24/19 08:06 03/24/19 08:04 94 03/23/19 23:27 Laboratory Results 03/24/19 03/24/19 03/24/19 Range/Units 08:11 05:02 05:02 WBC 8.81 (4.8-10.8) K/uL RBC 3.31 L (4.2-5.4) M/uL Hgb 9.0 L (12.0-16.0) g/dL Hct 26.5 L (37-47) % MCV 80.1 (80-100) fL MCH 27.2 (25-34) pg MCHC 34.0 (32-36) g/dL RDW Std Deviation 41.4 (36.4-46.3) fL RDW Coeff of Clem 14.3 (11.5-14.5) % Plt Count 215 (130-400) K/uL MPV 9.3 (7.4-10.4) fL Immature Gran % (Auto) 0.1 % Neut % (Auto) 74.6 % Lymph % (Auto) 15.0 % [place] % (Auto) 9.3 % Eos % (Auto) 0.9 % Baso % (Auto) 0.1 % Immature Gran # (Auto) 0.01 (0.00-0.02) K/uL Neut # (Auto) 6.57 H (1.4-6.5) K/uL Lymph # (Auto) 1.32 (1.2-3.4) K/uL [place] # (Auto) 0.82 H (0.11-0.59) K/uL Eos # (Auto) 0.08 (0-0.5) K/uL Baso # (Auto) 0.01 (0-0.2) K/uL Creatinine 0.51 L (0.6-1.2) mg/dl Est Cr Clr Drug Dosing 66.8 ml/min Est GFR ( Amer) 103.1 Est GFR (Non-Af Amer) 88.9 POC Glucose 98 (70-99) 03/23/19 03/23/19 03/23/19 Range/Units 20:58 17:11 12:09 WBC (4.8-10.8) K/uL RBC (4.2-5.4) M/uL Hgb (12.0-16.0) g/dL Hct (37-47) % MCV (80-100) fL MCH (25-34) pg MCHC (32-36) g/dL RDW Std Deviation (36.4-46.3) fL RDW Coeff of Clem (11.5-14.5) % Plt Count (130-400) K/uL MPV (7.4-10.4) fL Immature Gran % (Auto) % Neut % (Auto) % Lymph % (Auto) % [place] % (Auto) % Eos % (Auto) % Baso % (Auto) % Immature Gran # (Auto) (0.00-0.02) K/uL Neut # (Auto) (1.4-6.5) K/uL Lymph # (Auto) (1.2-3.4) K/uL [place] # (Auto) (0.11-0.59) K/uL Eos # (Auto) (0-0.5) K/uL Baso # (Auto) (0-0.2) K/uL Creatinine (0.6-1.2) mg/dl Est Cr Clr Drug Dosing ml/min Est GFR ( Amer) Est GFR (Non-Af Amer) POC Glucose 257 H 232 H 169 H (70-99) Medications Administered Current Inpatient Medications Acetaminophen (Tylenol) 325 mg PO Q6H PRN PRN Reason: Pain or Fever Stop: 04/19/19 16:07 Al Hydrox/Mg Hydrox/Simethicone (Maalox) 15 ml PO Q4H PRN PRN Reason: Heartburn Stop: 04/20/19 13:15 Albuterol (Ventolin 0.5% 2.5mg/0.5ml) 2.5 mg NEB Q6R PRN PRN Reason: shortness Stop: 04/19/19 20:04 Amlodipine Besylate (Norvasc) 5 mg PO QAM [facility] Stop: 04/20/19 08:59 Last Admin: 03/23/19 09:35 Dose: 5 mg Documented by: Ascorbic Acid (Vitamin C) 500 mg PO BIDM IVON Stop: 04/20/19 16:59 Last Admin: 03/23/19 16:32 Dose: 500 mg Documented by: Bisacodyl (Dulcolax) 10 mg TN DAILY PRN PRN Reason: Constipation Stop: 04/19/19 16:15 Dextrose (Dextrose 50%) 25 - 50 ml IV UD PRN; Protocol PRN Reason: Hypoglycemia Protocol Stop: 04/19/19 16:08 Docusate Sodium (Colace) 100 mg PO BID [facility] Stop: 04/19/19 20:59 Last Admin: 03/23/19 21:28 Dose: 100 mg Documented by: Enoxaparin Sodium (Lovenox) 30 mg SQ Q24H [facility] Stop: 04/20/19 23:44 Last Admin: 03/24/19 01:01 Dose: 30 mg Documented by: Glucagon (Glucagen) 1 mg SQ UD PRN; Protocol PRN Reason: Hypoglycemia Protocol Stop: 04/19/19 16:08 Glucose (Glucose 40%) 15 - 30 gm PO UD PRN; Protocol PRN Reason: Hypoglycemia Protocol Stop: 04/19/19 16:08 Glucose (Dex4 Glucose) 4 - 8 tabs PO UD PRN; Protocol PRN Reason: Hypoglycemia Protocol Stop: 04/19/19 16:08 Insulin Aspart (Novolog Flexpen) 0 units SC ACHS [facility] Stop: 04/20/19 13:59 Last Admin: 03/23/19 21:29 Dose: 4 units Documented by: Insulin Detemir (Levemir Flextouch) 0 units SC HS [facility]; Protocol Stop: 04/21/19 20:59 Last Admin: 03/23/19 21:29 Dose: 25 units Documented by: Losartan Potassium (Cozaar) 50 mg PO DAILY [facility] Stop: 04/20/19 08:59 Last Admin: 03/23/19 09:34 Dose: 50 mg Documented by: Magnesium Hydroxide (Milk Of Magnesia) 30 ml PO Q6H PRN PRN Reason: Constipation Stop: 04/20/19 13:15 Metoclopramide HCl (Reglan) 10 mg IV Q6H PRN PRN Reason: Nausea And Vomiting Stop: 04/20/19 13:15 Miscellaneous (Carbohydrates For Hypoglycemia) 15 - 30 gm PO UD PRN PRN Reason: Hypoglycemia Protocol Stop: 04/19/19 16:08 Miscellaneous Information (Consult Glycemic Management Pharmacy) 1 ea N/A UD PRN PRN Reason: Consult Stop: 04/20/19 13:47 Multivitamins (Multivitamin Tab) 1 tab PO QAM [facility] Stop: 04/21/19 08:59 Last Admin: 03/23/19 09:34 Dose: 1 tab Documented by: Naloxone HCl (Narcan) 0.1 mg IV UD PRN PRN Reason: Opioid Overdose Stop: 04/20/19 13:15 Ondansetron HCl (Zofran) 4 mg IV Q6H PRN PRN Reason: Nausea Stop: 04/19/19 16:14 Last Admin: 03/21/19 14:23 Dose: 4 mg Documented by: Polyethylene Glycol (Miralax Powder Packet) 17 gm PO DAILY PRN PRN Reason: Constipation Stop: 04/19/19 16:13 Sennosides (Senokot) 8.6 mg PO QAM IVON Stop: 04/20/19 08:59 Last Admin: 03/23/19 09:35 Dose: 8.6 mg Documented by: Tramadol HCl (Ultram) 50 - 100 mg PO Q4H PRN PRN Reason: Pain Stop: 04/20/19 13:15 Last Admin: 03/23/19 11:22 Dose: 100 mg Documented by: (1) Fracture of left hip Encounter type: initial encounter Fracture type: closed Qualified Code(s): S72.002A - Fracture of unspecified part of neck of left femur, initial encounter for closed fracture (2) Fall Encounter type: initial encounter Qualified Code(s): W19.XXXA - Unspecified fall, initial encounter
[2019-03-24] MEDS: AMLODIPINE BESYLATE 5 MG TAB PO SCH (08:41)
[2019-03-24] MEDS: SENNA 8.6 MG TAB PO SCH (08:41)
[2019-03-24] MEDS: ASCORBIC ACID 500 MG TAB PO SCH ×2 (08:41→17:37)
[2019-03-24] MEDS: MULTIVITAMIN TAB PO SCH (08:42)
[2019-03-24] MEDS: LOSARTAN POTASSIUM 50 MG TAB PO SCH (08:42)
[2019-03-24] MEDS: INSULIN ASPART 100 UNITS/ML 3 ML PEN SC SCH ×4 (08:43→21:02)
[2019-03-24] MEDS: DOCUSATE SODIUM 100 MG CAP PO SCH ×2 (08:43→20:24)
--- NOTE | 2019-03-24 09:03 | Orthopedic Progress Note ---
Date of Service March 24, 2019 Assessment & Plan (1) Fracture of left hip: POD 3; S/P intramedullary trochanteric fixation nail left hip performed by Dr Boss 03-21-19. 1)Nurses may change dressings as needed. On POD 4, if not actively draining, incision may be open to air and shower normally. 2)Ice left hip as needed for pain 2)Pain medication per medicine for pain control 3)WBAT LLE with walker 4)Continue PT/OT 5)DVT prophylaxis with foot pumps/SCDs in bed and lovenox 6)DC plans to snf/rehab - awaiting authorization. Okay from ortho standpoint for discharge. 7)Scheduled f/u appointment with Dr Boss's office on 04-02-19 at 9:45am Subjective Patient is sitting in chair, states no pain at rest. She does get pain with movement. Awaiting placement. Dr. Boss present for today's visit. Physical Exam Physical Exam: Left hip incision clean, dry, intact. No distal edema. Moves toes/ankle well. Able to independently extend knee. Calf supple, nontender. Distal pulse 1+. Sensation normal. Results & Data Vital Signs (Past 12 Hours) Vital Signs Temp Pulse Pulse Resp BP BP Pulse Ox 03/24/19 08:06 36.7 C 77 18 132/63 95 03/24/19 08:04 03/23/19 23:27 36.7 C 82 16 108/69 94 Pulse Ox 03/24/19 08:06 03/24/19 08:04 94 03/23/19 23:27 (1) Fracture of left hip Encounter type: initial encounter Fracture type: closed Qualified Code(s): S72.002A - Fracture of unspecified part of neck of left femur, initial encounter for closed fracture
[2019-03-24] MEDS: TRAMADOL HCL 50 MG TABLET PO PRN (12:08)
--- NOTE | 2019-03-24 14:57 | Pharmacy Report ---
Pharmacy Glycemic Short Note 2 - Date of Service March 24, 2019 - Glycemic Short BSG Results (Last 24 hours): 03/23/19 03/23/19 03/24/19 17:11 20:58 08:11 POC Glucose 232 H 257 H 98 03/24/19 12:03 POC Glucose 108 H Outpatient Anti-diabetic Regimen: * Levemir 50 units SC daily * Liraglutide * A1c = 7% on 03/21/19 ASSESSMENT: * Pt is an 84yo F s/p L hip fracture after a mechanical fall now POD 3 * Hypoglycemia noted on admission likely 2nd too aggressive outpatient Levemir dosing 2nd poor po intake (note - this likely covers both basal and prandial needs as outpatient as she is not on bolus insulin as outpatient) * Post-prandial BSG's at dinner and bedtime yesterday were again elevated >180 mg/dL - correction factor tightened again today * AM fasting BSG below goal - will decrease Levemir dose PLAN FOR INPATIENT GLYCEMIC CONTROL: * Holding outpatient oral diabetes medications * Basal insulin: Levemir 20 units SC HS * Bolus insulin * NovoLog per scale ACHS or Q6hrs while NPO * Goal Range: Low 120 mg/dL - High 150 mg/dL * Correction Factor: 30 mg/dL/unit * Nutritional / Prandial insulin per carb ratio of 1 unit per 9 grams CHO consumed Discharge recommendation * A1c of 7% may be slightly below goal for this patient, and hypoglycemia on admission noted. * Patient may benefit from a reduction in outpatient Levemir, with further a djustment down prn poor po intake
[2019-03-24] MEDS ORDERED: INSULIN DETEMIR FLEXPEN/FLEX TOUCH 100 UNITS/ML 3ML SC SCH (21:00)
[2019-03-24] MEDS ORDERED: MAGNESIUM HYDROXIDE SUSP 30 ML UDC PO ONE (23:11)
[2019-03-25] MEDS: ENOXAPARIN INJ 30 MG/0.3 ML SYR SQ SCH (00:08)
[2019-03-25 05:47] LABS: Basophils # (auto) 0.01 K/uL (0-0.2); Basophils % (auto) 0.1 %; Eosinophils % (auto) 1.3 %; Hematocrit (blood only) 28.8 % (37-47); Hemoglobin 9.7 g/dL (12.0-16.0); Immature Granulocytes # (auto) 0.01 K/uL (0.00-0.02); Immature Granulocytes % (auto) 0.1 %; Lymphocytes % (auto) 18.2 %; Mean Corpuscular Hgb Conc 33.7 g/dL (32-36); Mean Corpuscular Volume 80.2 fL (80-100); Mean Platelet Volume 8.9 fL (7.4-10.4); Monocytes # (auto) 0.71 K/uL (0.11-0.59); Monocytes % (auto) 9.2 %; Neutrophils # (auto) 5.45 K/uL (1.4-6.5); Neutrophils % (auto) 71.1 %; Platelet Count 290 K/uL (130-400); RDW Coefficient of Variation 14.5 % (11.5-14.5); RDW Standard Deviation 42.5 fL (36.4-46.3); Red Blood Count 3.59 M/uL (4.2-5.4); White Blood Count 7.68 K/uL (4.8-10.8)
--- NOTE | 2019-03-25 08:35 | Orthopedic Progress Note ---
Date of Service March 25, 2019 Assessment & Plan (1) S/p left hip fracture: Patient will be leaving for [facility] at 1130 today. Continue rehab there. Prescriptions and medication reconciliation have been completed. Follow-up in the office with Dr. Boss as scheduled. Weight-bear as tolerated. She must use her walker. Subjective Patient is seen in her room this morning. She is 4 days status post left hip fracture ORIF. She states she is doing fine this morning. She has very little pain at this time. She is waiting for breakfast. No chest pain or shortness of breath. No other complaints. Review of Systems Review of Systems: unchanged from preop Physical Exam Physical Exam: Left thigh has 2 incisions that are closed with luis. Expected postoperative edema and ecchymosis. There is punctate oozing from her 2 incisions. It is bloody. No significant bogginess or pocketing. Musculoskeletal: Patient has no significant discomfort with passive hip flexion and logrolling of the left thigh. Intact motor function of the ankles and toes. Neurologic: Gross sensation is intact across the left leg and foot by soft touch. Peripheral pulses are 2+. Results & Data Vital Signs (Past 12 Hours) Vital Signs Temp Pulse Pulse Resp BP BP Pulse Ox 03/25/19 07:40 03/25/19 07:37 36.8 C 83 16 118/63 97 03/24/19 23:10 36.9 C 87 16 145/64 H 97 Pulse Ox 03/25/19 07:40 97 03/25/19 07:37 03/24/19 23:10 Laboratory Results H&H today is 9.7 and 28.8. Bedside glucose was 279 last night but is 113 this morning.
[2019-03-25] MEDS: ASCORBIC ACID 500 MG TAB PO SCH (08:43)
[2019-03-25] MEDS: DOCUSATE SODIUM 100 MG CAP PO SCH (08:43)
[2019-03-25] MEDS: SENNA 8.6 MG TAB PO SCH (08:43)
[2019-03-25] MEDS: MULTIVITAMIN TAB PO SCH (08:43)
[2019-03-25] MEDS: AMLODIPINE BESYLATE 5 MG TAB PO SCH (08:43)
[2019-03-25] MEDS: LOSARTAN POTASSIUM 50 MG TAB PO SCH (08:43)
[2019-03-25] MEDS: INSULIN ASPART 100 UNITS/ML 3 ML PEN SC SCH (08:47)
--- NOTE | 2019-03-25 09:33 | Discharge Summary ---
Date of Service March 25, 2019 Admission HPI Per Admitting Provider The patient is an 84 year old female who presents to the ED with episode of a fall. The patient states that she tripped outside while walking out of the garage. The patient states that she did not feel faint prior to falling and notes that she fell simply because she lost her balance. No apparent loss of consciousness. Patient found to have Acute mildly comminuted intratrochanteric fracture of the left femur. Patient received pain medications in the Ed and was drowsy but able to give good history with was confirmed by patient's family members in the room. Patient denies acute pain of the left hip at the time of hospitalist physical exam. breathing on room air. denies shortness of breath. denies chest pain. no nausea, no vomiting. no fevers at home. no headache. no dizziness Allergy History: patient tries to avoid mild products but denies any life threatening allergies to medications or foods Family history: diabetes mellitus in multiple family members Primary Care Provider: Jesus Massey, DO Admission Exam Per Admitting Provider Constitutional: cooperative Eyes: PERRL, conjunctivae normal, anicteric sclerae EOM intact bilaterally ENMT: external ear and nose normal, oropharynx normal Neck: normal visual inspection Respiratory: normal respiratory effort, lungs clear to auscultation Cardiovascular: Rate/Rhythm: regular rate and regular rhythm Gastrointestinal (Abdomen): normal bowel sounds, soft, nontender, no hepatosplenomegaly Musculoskeletal: able to move upper extremities on her own power. able to wiggle the toes bilaterally, sensation to touch of the feet intact Neurologic: PERRL, EOMI, accommodation nl, no face palsy, no dysarthria Psychiatric: Orientation: alert and cooperative Genitourinary: leslie Principal Diagnosis FALL /RIGHT HIP FRACTURE , S/P SURGERY TYPE 2 DIABETES Discharge Exam Constitutional: Elderly female sitting up in bed in no acute distress, eating breakfast Eyes: PERRL, EOMI, conjunctivae normal, anicteric sclerae ENMT: external ear and nose normal, oropharynx normal Neck: normal visual inspection Respiratory: normal respiratory effort, lungs clear to auscultation, no wheezing, rhonchi or crackles Cardiovascular: Rate/Rhythm: regular rate and regular rhythm Gastrointestinal (Abdomen): normal bowel sounds, soft, nontender, no hepatosplenomegaly Musculoskeletal: Hip: + surgical incision (Status post left hip ORIF) Neurologic: PERRL, EOMI, accommodation nl, no face palsy, no dysarthria Psychiatric: Orientation: alert and cooperative Discharge Data Allergies Allergy/AdvReac Type Severity Reaction Status Date / Time No Known Allergies Allergy Unverified 03/20/19 14:54 Consultations 03/20/19 15:54 ED Decision to Admit Stat 03/20/19 16:06 Consult Orthopedic Surgery Routine 03/20/19 16:08 Consult Case Management - Discharge Planning Routine 03/20/19 16:17 Consult Anesthesiology Routine 03/21/19 13:16 Consult Case Management - Discharge Planning Routine Procedures Performed Operation Date: 03/21/19 12:00 Actual Procedures p intramedullary trochanteric fixation nail left(Left) - Pravin Boss MD Ordered Studies 03/21/19 07:00 FL fluoroscopy <1hr Routine FL hip LT 2-3V Routine 03/25/19 03/25/19 03/24/19 Range/Units 08:09 05:13 20:55 WBC 7.68 (4.8-10.8) K/uL RBC 3.59 L (4.2-5.4) M/uL Hgb 9.7 L (12.0-16.0) g/dL Hct 28.8 L (37-47) % MCV 80.2 (80-100) fL MCH 27.0 (25-34) pg MCHC 33.7 (32-36) g/dL RDW Std Deviation 42.5 (36.4-46.3) fL RDW Coeff of Clem 14.5 (11.5-14.5) % Plt Count 290 (130-400) K/uL MPV 8.9 (7.4-10.4) fL Immature Gran % (Auto) 0.1 % Neut % (Auto) 71.1 % Lymph % (Auto) 18.2 % Wilcox % (Auto) 9.2 % Eos % (Auto) 1.3 % Baso % (Auto) 0.1 % Immature Gran # (Auto) 0.01 (0.00-0.02) K/uL Neut # (Auto) 5.45 (1.4-6.5) K/uL Lymph # (Auto) 1.40 (1.2-3.4) K/uL Wilcox # (Auto) 0.71 H (0.11-0.59) K/uL Eos # (Auto) 0.10 (0-0.5) K/uL Baso # (Auto) 0.01 (0-0.2) K/uL POC Glucose 113 H 279 H (70-99) 03/24/19 03/24/19 Range/Units 17:13 12:03 WBC (4.8-10.8) K/uL RBC (4.2-5.4) M/uL Hgb (12.0-16.0) g/dL Hct (37-47) % MCV (80-100) fL MCH (25-34) pg MCHC (32-36) g/dL RDW Std Deviation (36.4-46.3) fL RDW Coeff of Clem (11.5-14.5) % Plt Count (130-400) K/uL MPV (7.4-10.4) fL Immature Gran % (Auto) % Neut % (Auto) % Lymph % (Auto) % Wilcox % (Auto) % Eos % (Auto) % Baso % (Auto) % Immature Gran # (Auto) (0.00-0.02) K/uL Neut # (Auto) (1.4-6.5) K/uL Lymph # (Auto) (1.2-3.4) K/uL Wilcox # (Auto) (0.11-0.59) K/uL Eos # (Auto) (0-0.5) K/uL Baso # (Auto) (0-0.2) K/uL POC Glucose 202 H 108 H (70-99) Hospital Course (1) Fall: -The patient is an 84 year old female who presents After sustaining a fall possible pathologic Fx due to underlying osteoporosis -causing Acute mildly comminuted intratrochanteric fracture of the left femur-noted in Hip/Pelvis Xray after falling from minimum height The patient states that she tripped outside while walking out of the garage Underwent ORIF of left hip with intramedullary cynthia placement Postoperative day 4 cont PT/OT will need rehab Plan to DC to [facility] today (2) Fracture of left hip: -Acute mildly comminuted intratrochanteric fracture of the left femur -Appreciate input/help from Dr. Boss of orthopedics Plan to follow up with Dr Boss's office on 04-02-19 at 9:45am - Status post ORIF of left hip: Intramedullary trochanteric fixation nail of left hip fracture recovering well post op cont PT/OT -bowel regimen ordered to prevent ileus or constipation due to narcotic pain medication but patient still developed constipation, will continue to add to the regimen -had bowel movement last night (03/24/2019) ACUTE BLOOD LOSS ANEMIA : due to post surgical hemorrhage /post op status Hb drop 11-> 9 noted Today hemoglobin 9.7, stable no sign of hemodynamic compromise , pt remains asymptomatic no indication for transfusion repeat H&H in AM current guideline recommends : PRBC transfusion for Hb < 7 ( in a setting of no active coronary artery disease ) - (3) Diabetes mellitus with hypoglycemia: -patient was on Victoza and patient confirms 50 units daily of Detemir -Hypoglycemic episode noted on admission glucose as 63, glucose remained low as 53 on finger stick glucose repeat check -Given dextrose 50% of 50 ml Postoperatively blood sugar noted to be in 200, Patient's home antidiabetic regimen: Levemir 50 units daily Victoza/liraglutide 1.8 SC daily HB A1c 7 Pharmacy consulted for glycemic management, appreciate input Hypoglycemia noted on admission likely due to aggressive outpatient Levemir dosing ( 50 units ) with poor PO intake Recommends on discharge reducing dose to 20-25 units daily will be an appropriate dose (4) Hypertension: Had brief episode of hypertensive urgency on admission BP was 198/80 -elevated blood pressure contributed by pain and stress of hip fracture and underlying hypertension history - Blood pressure stable now, She is continued with home dose of antihypertensives: Losartan 50 mg daily, amlodipine 5 mg daily-with holding parameters DVT prophylaxis: Moderate to high risk secondary to recent hip surgery Subcu Lovenox ordered by orthopedics team which will be continued Full Code Disposition:D/C to [facility] today Contacts: Fran Olivo phone #[phone] (5) Constipation: Bowel regimen ordered, but despite that patient has been constipated, most likely secondary to opiate pain medications Will add to her bowel regimen, and will closely monitor Patient had a bowel movement last night, on 03/24/2019 Total Time Total Time Spent Total Time Spent (In Minutes): 40 Total Time Includes: Examination of the Patient, Discharge Planning, Medication Reconciliation and Communication With Other Providers Discharge Plan Discharge Items Patient Disposition: Transfer Shelter Fac Reason For Visit: HIP FRACTURE, HYPOGLYCEMIA Discharge Diagnosis: FALL /RIGHT HIP FRACTURE , S/P SURGERY TYPE 2 DIABETES Activity: As commented below Weightbearing: Left weightbearing Weightbearing Comment: with assistance of a walker Non-emergency contact: Primary Care Provider and Surgeon Call non-emergency contact if: you have any medication questions, your symptoms worsen, your pain is not controlled, your pain is worsening, your pain is concerning for you, your temperature is above 101, your wound has increased redness and your wound has increased drainage Follow-up/Referrals: Ling Aguilar PA-C [Physician Plant Nursery Worker] - 04/02/19 9:45 am Jesus Massey DO [Primary Care Provider] - Diet: Carb Consistent or DM2 and Heart Healthy Juan Attending Provider Instructions: Scheduled f/u appointment with Dr Boss's office on 04-02-19 at 9:45am Juan Plasma Processor Provider Instructions: On 03/25/19 may shower, do not scrub or soap incision, may let soap and water run over incision. Pat incision dry, redress as needed. Ice to left hip as needed for pain/swelling Elevate left lower extremity above heart to relieve pain/swelling. Allowed for range of motion left hip and left knee. No hip precautions necessary. May weight bear as tolerated left lower extremity with the assistance of a walker. Physical therapy/occupational therapy - may do range of motion, strengthening as tolerated Lovenox 30mg SQ daily x 4 weeks for DVT prophylaxis. Vitamin D daily if necessary. Follow up as scheduled on 04/02/19. Call [phone] with any questions or concerns, drainage of incision or needs to reschedule appointment. Pending Studies at Discharge: No Stand-Alone Forms: My [facility] Skilled Items Patient informed of condition?: Yes DNR: No Discharge Level of Care: Acute rehab Communicable Disease: No Discharge Prognosis: Stable Lines: None Urinary Catheter: No Medications and DC Order Prescriptions: New enoxaparin [Lovenox] 30 mg/0.3 mL Syringe 30 mg subcut Q24H Qty: 3 RF: 0 amlodipine [Norvasc] 5 mg Tablet 5 mg PO QAM Qty: 30 RF: 0 sennosides [Senokot] 8.6 mg Tablet 8.6 mg PO QAM 30 Days Qty: 30 RF: 0 acetaminophen [Mapap (acetaminophen)] 325 mg Tablet 325 mg PO Q6H PRN (Reason: fever or pain) 30 Days Qty: 30 RF: 0 polyethylene glycol 3350 [Miralax] 17 gram Powder In Packet 17 g PO DAILY PRN (Reason: constipation) 30 Days Qty: 30 RF: 0 naloxone 0.4 mg/mL Solution 0.1 mg IV UD PRN (Reason: opioid reversal) 30 Days Qty: 30 RF: 0 dextrose [Glucose Gel] 40 % Gel 15 - 30 g PO UD PRN (Reason: hypoglycemia) 30 Days Qty: 30 RF: 0 tramadol 50 mg Tablet 50 - 100 mg PO Q4H PRN (Reason: pain) 30 Days Qty: 30 RF: 0 magnesium hydroxide [Milk of Magnesia] 400 mg/5 mL Suspension 30 ml PO Q6H PRN (Reason: constipation) 30 Days Qty: 30 RF: 0 glucose [Dex4 Glucose] 4 gram Tablet,Chewable 16 gm PO UD PRN (Reason: hypoglycemia) 30 Days Qty: 30 RF: 0 dextrose 50 % in water (D50W) Syringe 25 - 50 ml IV UD PRN (Reason: hypoglycemia) 30 Days Qty: 30 RF: 0 multivitamin [Daily-Sonal] Tablet 1 tab PO QAM 30 Days Qty: 30 RF: 0 ascorbic acid (vitamin C) [Vitamin C] 500 mg Tablet 500 mg PO BIDM 30 Days Qty: 30 RF: 0 Carbohydrates For Hypoglycemia .ROUTE .MEDSUPPLY Qty: 1 RF: 1 Continued losartan 50 mg tablet 50 mg PO DAILY RF: 0 propranolol 120 mg capsule,extended release 24 hr 120 mg PO DAILY RF: 0 Victoza 2-Rober 0.6 mg/0.1 mL (18 mg/3 mL) pen injector 1.8 mg subcut DAILY RF: 0 ProAir RespiClick 90 mcg/actuation aerosol powdr breath activated 2 puff inhalation Q4 PRN (Reason: Shortness Of Breath Or Wheezing) RF: 0 solifenacin 5 mg tablet 5 mg PO DAILY RF: 0 Changed Levemir FlexTouch U-100 Insuln 100 unit/mL (3 mL) insulin pen 20 unit subcut DAILY Qty: 45 RF: 5 Discharge Orders: Discharge Order (Routine); Ordered 03/25/19 Ordered By: Sean Sousa/Other Patient Handouts: Hypoglycemia Admission Data Admit Date/Time: 03/20/19 16:21 Attending Provider: Sean Beavers Admit Provider: Israel Serrano Primary Care Provider: Jesus Massey Other Providers: Israel Serrano ; Pravin Boss ; Hasmukh Ramsey ; [facility] ; [facility] ; Yolanda Lundy
== END 2019-03-25 11:42 | DRG 481 ==
LOC: ED 14:13 → SUATTDRO 16:21 → 3W 16:21 → 2E 03-21 13:31 → 3W 03-22 09:43

== ENCOUNTER 2019-06-06 19:00 | Inpatient (IN) ==
[2019-06-06] MEDS ORDERED: ALBUTEROL 0.083% NEBU SOLN 3 ML VIAL NEB STA ×2 (19:37→21:03)
[2019-06-06] MEDS ORDERED: SODIUM CHLORIDE 0.9% 1000ML 1,000 ML IV ONE (19:38)
[2019-06-06 20:05] LABS: Appearance Urine Clear (Clear); Bacteria Urine Automated Negative (Negative); Bilirubin Urine Negative (Negative); Blood Urine Negative (Negative); Color Urine Yellow; Epithelial Cell Urine Auto 20-30 /lpf (0-5); Glucose Urine UA Negative (Negative); Ketones Urine Negative (Negative); Leukocyte Esterase Urine 1+ (Negative); Nitrite Urine Negative (Negative); Protein Urine Negative (Negative); RBC Urine Automated 0-4 /hpf (0-4); Specific Gravity Urine 1.017 (1.000-1.030); Urobilinogen Urine Negative (Negative); pH Urine 7.5 (4.5-7.5)
[2019-06-06 20:09] LABS: Basophils # (auto) 0.01 K/uL (0-0.2); Basophils % (auto) 0.1 %; Eosinophils # (auto) 0.29 K/uL (0-0.5); Eosinophils % (auto) 1.8 %; Hematocrit (blood only) 38.6 % (37-47); Hemoglobin 12.2 g/dL (12.0-16.0); Immature Granulocytes # (auto) 0.06 K/uL (0.00-0.02); Immature Granulocytes % (auto) 0.4 %; Lymphocytes # (auto) 1.64 K/uL (1.2-3.4); Lymphocytes % (auto) 10.1 %; Mean Corpuscular Hemoglobin 23.6 pg (25-34); Mean Corpuscular Hgb Conc 31.6 g/dL (32-36); Mean Corpuscular Volume 74.5 fL (80-100); Mean Platelet Volume 8.7 fL (7.4-10.4); Monocytes # (auto) 1.26 K/uL (0.11-0.59); Monocytes % (auto) 7.8 %; Neutrophils # (auto) 12.96 K/uL (1.4-6.5); Neutrophils % (auto) 79.8 %; Platelet Count 434 K/uL (130-400); RDW Coefficient of Variation 15.4 % (11.5-14.5); RDW Standard Deviation 41.8 fL (36.4-46.3); Red Blood Count 5.18 M/uL (4.2-5.4); White Blood Count 16.22 K/uL (4.8-10.8)
[2019-06-06 20:27] LABS: Alanine Aminotransferase 17 U/L (12-78); Albumin Level 2.7 gm/dl (3.4-5.0); Anion Gap 0 (3-11); Aspartate Aminotransferase 12 U/L (15-37); BUN Creatinine Ratio 17.2 (10-20); Blood Urea Nitrogen 12 mg/dl (7-18); Calcium 9.1 mg/dl (8.5-10.1); Carbon Dioxide 32 mmol/L (21-32); Chloride 97 mmol/L (98-107); Est GFR (African American) 94.2; Est GFR (Non-African American) 81.3; Glucose 139 mg/dl (70-99); Potassium 4.6 mmol/L (3.5-5.1); Sodium 129 mmol/L (136-145)
[2019-06-06 20:33] LABS: Influenza A virus by PCR Neg for Influ A (Neg); Influenza B virus by PCR Neg for Influ B (Neg)
[2019-06-06 20:37] LABS: Albumin Globulin Ratio 0.5 (0.9-2); Alkaline Phosphatase 183 U/L (45-117); Bilirubin,Total 0.4 mg/dl (0.2-1); Creatine Kinase 323 U/L (26-192); Total Protein 7.7 gm/dl (6.4-8.2); Troponin I < 0.015 ng/ml (0-0.045)
--- NOTE | 2019-06-06 20:43 | CT Scan Report ---
CT head/brain wo con CLINICAL HISTORY: 84 years-old Female presenting with Pt AMS. TECHNIQUE: Multidetector CT imaging of the head was performed without the use of intravenous contrast . IV contrast: None. One or more dose lowering techniques were used consistent with the principles of ALARA (as low as reasonably achievable), including automatic exposure control, mA or kV adjustment t o individual patient size, and/or use of iterative reconstruction. COMPARISON: None. CT DOSE (mGy.cm): The estimated cumulative dose is 537.48 mGy.cm. FINDINGS: Stone Spreader Operator topogram: Unremarkable. Proportional ventricular and sulcal prominence, likely age-related parenchymal volume loss. No hemorr mamta. Periventricular and subcortical white matter hypoattenuation, nonspecific but likely indicative of chronic small vessel ischemic change. Old lacunar infarct in the anterior limb of the left consultant intern al capsule. Lacunar infarct in the right thalamus, likely old. No acute territorial infarct. No mass effect or midline shift. No extra-axial fluid collection. Air-fluid levels in the left maxillary sinu s and sphenoid sinus. Calvarium intact. IMPRESSION: 1. Chronic small vessel ischemic change and presumably old lacunar infarcts. 2. No convincing evidence of acute intracranial abnormality. 3. Air-fluid levels in the left maxillary in sphenoid sinuses concerning for acute sinusitis. ACT 112: Negative or not required by law. Electronically signed by: Pravin Akhtar M.D. 06/06/2019 8:42 PM
[2019-06-06] MEDS ORDERED: cefTRIAXone SODIUM 2,000 MG/70 ML BAG IV STA (20:59)
--- NOTE | 2019-06-06 21:16 | XRay Report ---
XR chest 1V portable CLINICAL HISTORY: 84 years-old Female presenting with weakness. TECHNIQUE: Portable upright AP view of the chest was obtained. COMPARISON: 03/20/2019. FINDINGS: Atherosclerosis of the aortic arch. Cardiac silhouette borderline enlarged. Lungs are mildly hyperinf lated. Significant heterogeneity of lung parenchyma with reticulonodular opacities most prominently i n the right lung. This may in part represent vascular prominence. Slightly more prominent than on the prior exam. No large effusion or pneumothorax. Osteopenia suspected. Upper abdomen normal. IMPRESSION: 1. Reticulonodular opacities in both lungs though asymmetrically worse on the right. This may in par t represent vascular prominence and congestive change, however, underlying reticulonodular infiltrate is likely also be present. This likely relates to the previously suggested atypical mycobacterial in fection. Progression of infection may be present. 2. Borderline cardiomegaly. ACT 112: Negative or not required by law. Electronically signed by: Pravin Akhtar M.D. 06/06/2019 9:15 PM
[2019-06-06] MEDS ORDERED: LEVOFLOXACIN/D5W 750 MG/150 ML BAG IV STA (21:20)
--- NOTE | 2019-06-06 23:31 | Emergency Department Note ---
Entered by Maria D Machado acting as a scribe for History of Present Illness General Chief complaint: Confusion Stated complaint: CONFUSION, COULDNT FORM SENTENCES Time Seen by Provider: 06/06/19 19:24 Source: patient History of Present Illness Onset (ago): hour(s) (3.5) Location: head Pain Consistency: + other (worsening) Quality: + other (confusion) Associated symptoms: + other (positive trouble forming sentences; negative slurring words) The patient is a 84 year old female who presents to the Emergency Room with complaints of worsening confusion that began at 1600 today, 3.5 hours prior to arrival, per family. The patient's family states that the patient was not s lurring her words, but states that she was having trouble forming her sentences. The patient's family states that the patient was discharged today from [facility] after being in rehab for 3 weeks after a broken hip. Home Medications Home Medications Medication Instructions Recorded Confirmed Type losartan 50 mg PO DAILY 08/26/18 06/06/19 History propranolol 120 mg PO DAILY 08/26/18 06/06/19 History solifenacin 5 mg PO DAILY 03/20/19 06/06/19 History amlodipine [Norvasc] 5 mg PO QAM #30 tab 03/25/19 06/06/19 Rx Levemir FlexTouch U-100 Insuln 30 unit SUBCUT QAM 05/20/19 06/06/19 History acetaminophen 650 mg PO Q6H PRN 05/20/19 06/06/19 History albuterol sulfate [ProAir 2 inh INHALATION Q4H PRN 05/20/19 06/06/19 History RespiClick] ascorbic acid (vitamin C) 500 mg PO BID 05/20/19 06/06/19 History cetirizine [Zyrtec] 10 mg PO DAILY 05/20/19 06/06/19 History cholecalciferol (vitamin D3) 2,000 unit PO DAILY 05/20/19 06/06/19 History [Vitamin D3] fluticasone propionate 2 spray INTRANASAL DAILY 05/20/19 06/06/19 History liraglutide [Victoza 3-Rober] 1.8 mg SUBCUT QAM 05/20/19 06/06/19 History multivitamin 1 tab PO DAILY 01/02/20 01/19/20 History polyethylene glycol 3350 [GlycoLax] 17 g PO DAILY 05/20/19 06/06/19 History sennosides 8.6 mg PO DAILY 05/20/19 06/06/19 History tramadol 50 mg PO Q4H PRN 05/20/19 06/06/19 History Allergies Allergy/AdvReac Type Severity Reaction Status Date / Time No Known Allergies Allergy Verified 06/06/19 20:04 Past Med/Surg History Medical History Degenerative arthritis of cervical spine (Acute) Diabetes (Chronic) History of right hip replacement (Resolved) Left elbow fracture (Acute) Osteoporosis (Chronic) Stroke (Resolved) Family History Other No pertinent family history Social History Preferred Language: Tajik Communication Ability: Effective Aircraft Inspector Required: No Beliefs That Will Affect Care: None Current Living Situation: Spouse Feels Safe at Home: Yes Smoking Status: Never smoker Second Hand Exposure: No ; Hx Alcohol Use: No Hx Substance Use: No Review of Systems See HPI for pertinent positives & negatives. and A total of 10 systems reviewed and were otherwise negative Physical Exam Vital Signs Vital Signs - 24 hr 06/06/19 19:07 06/06/19 19:30 06/06/19 19:39 Temperature 37.0 C Temperature Source Oral Pulse Rate 86 87 88 Pulse Rate [Right Finger] Pulse Rate from SpO2 Sensor Respiratory Rate 22 26 H 24 Respiratory Effort / Characteristics Non-Labored Spontaneous Respiratory Depth Normal Blood Pressure 171/73 H 160/79 H Blood Pressure [Right Arm] Blood Pressure Mean 105 113 Blood Pressure Mean [Right Arm] Pulse Oximetry 95 Oxygen Delivery Method Room Air Sepsis Action Taken by Nursing No Action Required 06/06/19 19:40 06/06/19 19:51 06/06/19 19:55 Temperature Temperature Source Pulse Rate 89 84 Pulse Rate [Right Finger] 82 Pulse Rate from SpO2 Sensor 84 Respiratory Rate 20 27 H 20 Respiratory Effort / Characteristics Non-Labored Respiratory Depth Blood Pressure Blood Pressure [Right Arm] Blood Pressure Mean Blood Pressure Mean [Right Arm] Pulse Oximetry 95 97 Oxygen Delivery Method Room Air Sepsis Action Taken by Nursing 06/06/19 20:00 06/06/19 20:04 06/06/19 20:10 Temperature Temperature Source Pulse Rate 87 85 Pulse Rate [Right Finger] Pulse Rate from SpO2 Sensor 86 Respiratory Rate 22 27 H Respiratory Effort / Characteristics Respiratory Depth Blood Pressure Blood Pressure [Right Arm] Blood Pressure Mean Blood Pressure Mean [Right Arm] Pulse Oximetry 100 100 Oxygen Delivery Method Room Air Sepsis Action Taken by Nursing 06/06/19 20:20 06/06/19 20:37 06/06/19 20:40 Temperature Temperature Source Pulse Rate 87 88 88 Pulse Rate [Right Finger] Pulse Rate from SpO2 Sensor 90 89 88 Respiratory Rate 26 H 25 H 23 Respiratory Effort / Characteristics Respiratory Depth Blood Pressure Blood Pressure [Right Arm] Blood Pressure Mean Blood Pressure Mean [Right Arm] Pulse Oximetry 97 95 96 Oxygen Delivery Method Sepsis Action Taken by Nursing 06/06/19 20:50 06/06/19 21:00 06/06/19 21:01 Temperature Temperature Source Pulse Rate 90 92 H 91 H Pulse Rate [Right Finger] Pulse Rate from SpO2 Sensor 90 Respiratory Rate 23 22 19 Respiratory Effort / Characteristics Respiratory Depth Blood Pressure 156/69 H Blood Pressure [Right Arm] Blood Pressure Mean 108 Blood Pressure Mean [Right Arm] Pulse Oximetry 95 96 Oxygen Delivery Method Sepsis Action Taken by Nursing 06/06/19 21:10 06/06/19 21:19 06/06/19 21:20 Temperature Temperature Source Pulse Rate 90 91 H Pulse Rate [Right Finger] 91 H Pulse Rate from SpO2 Sensor Respiratory Rate 28 H 20 16 Respiratory Effort / Characteristics Non-Labored Respiratory Depth Blood Pressure Blood Pressure [Right Arm] Blood Pressure Mean Blood Pressure Mean [Right Arm] Pulse Oximetry 97 Oxygen Delivery Method Room Air Sepsis Action Taken by Nursing 06/06/19 21:30 06/06/19 21:31 06/06/19 21:40 Temperature Temperature Source Pulse Rate 90 91 H 95 H Pulse Rate [Right Finger] Pulse Rate from SpO2 Sensor 92 H 90 92 H Respiratory Rate 16 20 20 Respiratory Effort / Characteristics Respiratory Depth Blood Pressure 156/71 H Blood Pressure [Right Arm] Blood Pressure Mean 119 Blood Pressure Mean [Right Arm] Pulse Oximetry 93 100 94 Oxygen Delivery Method Sepsis Action Taken by Nursing 06/06/19 21:50 06/06/19 22:00 06/06/19 22:01 Temperature Temperature Source Pulse Rate 90 97 H 91 H Pulse Rate [Right Finger] Pulse Rate from SpO2 Sensor 91 H 97 H 84 Respiratory Rate 22 28 H 23 Respiratory Effort / Characteristics Respiratory Depth Blood Pressure 142/85 H Blood Pressure [Right Arm] Blood Pressure Mean 107 Blood Pressure Mean [Right Arm] Pulse Oximetry 94 92 93 Oxygen Delivery Method Sepsis Action Taken by Nursing 06/06/19 22:10 06/06/19 22:20 06/06/19 23:10 Temperature Temperature Source Pulse Rate 93 H 95 H Pulse Rate [Right Finger] 91 H Pulse Rate from SpO2 Sensor 88 89 Respiratory Rate 22 25 H 18 Respiratory Effort / Characteristics Respiratory Depth Blood Pressure Blood Pressure [Right Arm] 151/81 H Blood Pressure Mean Blood Pressure Mean [Right Arm] 104 Pulse Oximetry 94 91 95 Oxygen Delivery Method Room Air Sepsis Action Taken by Nursing GENERAL: Awake, alert, well-appearing, in no acute distress. Appears to have a UTI. HENT: Normocephalic, atraumatic. Oropharynx unremarkable. EYES: Normal conjunctiva. Sclera non-icteric. NECK: Supple. No nuchal rigidity. FROM. No JVD. RESPIRATORY: Wheezing bilaterally. CARDIAC: Regular rate, normal rhythm. Extremities warm and well perfused. Pulses equal. ABDOMEN: Soft, non-distended. No tenderness to palpation. No rebound or guarding. No masses. RECTAL: Deferred. MUSCULOSKELETAL: Chest examination reveals no tenderness. The back is symmetrical on inspection without obvious abnormality. There is no CVA tenderness to palpation. No joint edema. LOWER EXTREMITIES: Calves are equal size bilaterally and non-tender. No edema. No discoloration. NEURO: Normal sensorium. Knows where she is but does not know day or month. No sensory or motor deficits noted. SKIN: No rash or jaundice noted. Course Course 1927: Past medical records reviewed. The patient was evaluated in room []. A complete history and physical exam was performed. 2132: [facility]. Administered Medications Discontinued Medications Albuterol (Ventolin 0.083% 2.5mg/3ml) 2.5 mg NEB NOW STA Stop: 06/06/19 19:38 Last Admin: 06/06/19 19:55 Dose: 2.5 mg Documented by: [id number] Albuterol (Ventolin 0.083% 2.5mg/3ml) 2.5 mg NEB NOW STA Stop: 06/06/19 21:04 Last Admin: 06/06/19 21:18 Dose: 2.5 mg Documented by: [id number] Sodium Chloride (Nss 1000ml) 1,000 mls @ 999 mls/hr IV .Q1H1M ONE Stop: 06/06/19 20:38 Last Infusion: 06/06/19 21:11 Dose: 0 mls/hr Documented by: [id number] Admin: 06/06/19 20:07 Dose: 999 mls/hr Documented by: [id number] Ceftriaxone Sodium (Rocephin) 2,000 mg in 70 mls @ 140 mls/hr IV NOW STA Stop: 06/06/19 21:28 Last Infusion: 06/06/19 22:10 Dose: 0 mls/hr Documented by: [id number] Infusion: 06/06/19 21:48 Dose: 140 mls/hr Documented by: [id number] Infusion: 06/06/19 21:29 Dose: 0 mls/hr Documented by: [id number] Admin: 06/06/19 21:16 Dose: 140 mls/hr Documented by: [id number] Levofloxacin/Dextrose (Levaquin/D5w) 750 mg in 150 mls @ 100 mls/hr IV NOW STA Stop: 06/06/19 22:49 Last Admin: 06/06/19 22:10 Dose: 100 mls/hr Documented by: [id number] Medical Decision Making Differential Diagnosis Differential Diagnosis includes but is not limited to dehydration, stroke, anemia, hypoglycemia, hyponatremia, hypernatremia, urinary tract infection, pneumonia, bronchitis, sepsis, gastroenteritis, additional abdominal pathology, metabolic abnormalities and infections. Medical Records Attestation: I reviewed the patient's medical records. Home Medications Current Medication List: was personally reviewed by ct Laboratory Data Attestation: I reviewed the patient's lab results. Result diagrams: 06/06/19 20:01 06/06/19 20:01 Lab Results 06/06/19 06/06/19 06/06/19 Range/Units 19:43 19:52 20:01 WBC 16.22 H (4.8-10.8) K/uL RBC 5.18 (4.2-5.4) M/uL Hgb 12.2 (12.0-16.0) g/dL Hct 38.6 (37-47) % MCV 74.5 L (80-100) fL MCH 23.6 L (25-34) pg MCHC 31.6 L (32-36) g/dL RDW Std Deviation 41.8 (36.4-46.3) fL RDW Coeff of Clem 15.4 H (11.5-14.5) % Plt Count 434 H (130-400) K/uL MPV 8.7 (7.4-10.4) fL Immature Gran % (Auto) 0.4 % Neut % (Auto) 79.8 % Lymph % (Auto) 10.1 % [place] % (Auto) 7.8 % Eos % (Auto) 1.8 % Baso % (Auto) 0.1 % Immature Gran # (Auto) 0.06 H (0.00-0.02) K/uL Neut # (Auto) 12.96 H (1.4-6.5) K/uL Lymph # (Auto) 1.64 (1.2-3.4) K/uL [place] # (Auto) 1.26 H (0.11-0.59) K/uL Eos # (Auto) 0.29 (0-0.5) K/uL Baso # (Auto) 0.01 (0-0.2) K/uL Sodium (136-145) mmol/L Potassium (3.5-5.1) mmol/L Chloride (98-107) mmol/L Carbon Dioxide (21-32) mmol/L Anion Gap (3-11) BUN (7-18) mg/dl Creatinine (0.6-1.2) mg/dl Est Cr Clr Drug Dosing Est GFR ( Amer) Est GFR (Non-Af Amer) BUN/Creatinine Ratio (10-20) Glucose (70-99) mg/dl Calcium (8.5-10.1) mg/dl Total Bilirubin (0.2-1) mg/dl AST (15-37) U/L ALT (12-78) U/L Alkaline Phosphatase (45-117) U/L Total Creatine Kinase (26-192) U/L Troponin I (0-0.045) ng/ml Total Protein (6.4-8.2) gm/dl Albumin (3.4-5.0) gm/dl Globulin (2.5-4.0) gm/dl Albumin/Globulin Ratio (0.9-2) TSH (0.300-4.500) uIu/ml Urine Color Yellow Urine Appearance Clear (Clear) Urine pH 7.5 (4.5-7.5) Ur Specific [place] 1.017 (1.000-1.030) Urine Protein Negative (Negative) Urine Glucose (UA) Negative (Negative) Urine Ketones Negative (Negative) Urine Blood Negative (Negative) Urine Nitrite Negative (Negative) Urine Bilirubin Negative (Negative) Urine Urobilinogen Negative (Negative) Ur Leukocyte Esterase 1+ H (Negative) Urine WBC (Auto) 10-30 H (0-5) /hpf Urine RBC (Auto) 0-4 (0-4) /hpf U Hyaline Cast (Auto) 1-5 (0-5) /lpf U Epithel Cells (Auto) 20-30 H (0-5) /lpf Urine Bacteria (Auto) Negative (Negative) Influenza Type A (PCR) Neg for Influ A (Neg) Influenza Type B (PCR) Neg for Influ B (Neg) 06/06/19 Range/Units 20:01 WBC (4.8-10.8) K/uL RBC (4.2-5.4) M/uL Hgb (12.0-16.0) g/dL Hct (37-47) % MCV (80-100) fL MCH (25-34) pg MCHC (32-36) g/dL RDW Std Deviation (36.4-46.3) fL RDW Coeff of Clem (11.5-14.5) % Plt Count (130-400) K/uL MPV (7.4-10.4) fL Immature Gran % (Auto) % Neut % (Auto) % Lymph % (Auto) % [place] % (Auto) % Eos % (Auto) % Baso % (Auto) % Immature Gran # (Auto) (0.00-0.02) K/uL Neut # (Auto) (1.4-6.5) K/uL Lymph # (Auto) (1.2-3.4) K/uL [place] # (Auto) (0.11-0.59) K/uL Eos # (Auto) (0-0.5) K/uL Baso # (Auto) (0-0.2) K/uL Sodium 129 L (136-145) mmol/L Potassium 4.6 (3.5-5.1) mmol/L Chloride 97 L (98-107) mmol/L Carbon Dioxide 32 (21-32) mmol/L Anion Gap 0 L (3-11) BUN 12 (7-18) mg/dl Creatinine 0.67 (0.6-1.2) mg/dl Est Cr Clr Drug Dosing Not Reportable Est GFR ( Amer) 94.2 Est GFR (Non-Af Amer) 81.3 BUN/Creatinine Ratio 17.2 (10-20) Glucose 139 H (70-99) mg/dl Calcium 9.1 (8.5-10.1) mg/dl Total Bilirubin 0.4 (0.2-1) mg/dl AST 12 L (15-37) U/L ALT 17 (12-78) U/L Alkaline Phosphatase 183 H (45-117) U/L Total Creatine Kinase 323 H (26-192) U/L Troponin I < 0.015 (0-0.045) ng/ml Total Protein 7.7 (6.4-8.2) gm/dl Albumin 2.7 L (3.4-5.0) gm/dl Globulin 5.0 H (2.5-4.0) gm/dl Albumin/Globulin Ratio 0.5 L (0.9-2) TSH 2.750 (0.300-4.500) uIu/ml Urine Color Urine Appearance (Clear) Urine pH (4.5-7.5) Ur Specific [place] (1.000-1.030) Urine Protein (Negative) Urine Glucose (UA) (Negative) Urine Ketones (Negative) Urine Blood (Negative) Urine Nitrite (Negative) Urine Bilirubin (Negative) Urine Urobilinogen (Negative) Ur Leukocyte Esterase (Negative) Urine WBC (Auto) (0-5) /hpf Urine RBC (Auto) (0-4) /hpf U Hyaline Cast (Auto) (0-5) /lpf U Epithel Cells (Auto) (0-5) /lpf Urine Bacteria (Auto) (Negative) Influenza Type A (PCR) (Neg) Influenza Type B (PCR) (Neg) Imaging Data Radiologist's Impression: Radiology results as stated below per my review and the radiologist's interpretation: XR chest 1V portable CLINICAL HISTORY: 84 years-old Female presenting with weakness. TECHNIQUE: Portable upright AP view of the chest was obtained. COMPARISON: 03/20/2019. FINDINGS: Atherosclerosis of the aortic arch. Cardiac silhouette borderline enlarged. Lungs are mildly hyperinflated. Significant heterogeneity of lung parenchyma with reticulonodular opacities most prominently in the right lung. This may in part represent vascular prominence. Slightly more prominent than on the prior exam. No large effusion or pneumothorax. Osteopenia suspected. Upper abdomen normal. IMPRESSION: 1. Reticulonodular opacities in both lungs though asymmetrically worse on the right. This may in part represent vascular prominence and congestive change, however, underlying reticulonodular infiltrate is likely also be present. This likely relates to the previously suggested atypical mycobacterial infection. Progression of infection may be present. 2. Borderline cardiomegaly. ACT 112: Negative or not required by law. Electronically signed by: Pravin Akhtar M.D. 06/06/2019 9:[address] head/brain wo con CLINICAL HISTORY: 84 years-old Female presenting with Pt AMS. TECHNIQUE: Multidetector CT imaging of the head was performed without the use of intravenous contrast. IV contrast: None. One or more dose lowering techniques were used consistent with the principles of ALARA (as low as reasonably achievable), including automatic exposure control, mA or kV adjustment to individual patient size, and/or use of iterative reconstruction. COMPARISON: None. CT DOSE (mGy.cm): The estimated cumulative dose is 537.48 mGy.cm. FINDINGS: Roller Coaster Engineer topogram: Unremarkable. Proportional ventricular and sulcal prominence, likely age-related parenchymal volume loss. No hemorrhage. Periventricular and subcortical white matter hy poattenuation, nonspecific but likely indicative of chronic small vessel ischemic change. Old lacunar infarct in the anterior limb of the left internal capsule. Lacunar infarct in the right thalamus, likely old. No acute territorial infarct. No mass effect or midline shift. No extra-axial fluid collection. Air- fluid levels in the left maxillary sinus and sphenoid sinus. Calvarium intact. IMPRESSION: 1. Chronic small vessel ischemic change and presumably old lacunar infarcts. 2. No convincing evidence of acute intracranial abnormality. 3. Air-fluid levels in the left maxillary in sphenoid sinuses concerning for acute sinusitis. ACT 112: Negative or not required by law. Electronically signed by: Pravin Akhtar M.D. 06/06/2019 8:42 PM ECG Data Attestation: I personally reviewed and interpreted this ECG as follows: Indication: + weakness Rate (beats per minute): 87 Rhythm: + normal sinus ECG Intervals/blocks: + Normal QT-c (445) ECG ST segments: no ST depression and no ST elevation Blood Pressure Blood Pressure Findings: Elevated blood pressure Blood Pressure Disposition: further management by hospitalist MDM Narrative This is an 84-year-old female who presents emergency department over concerns of worsening confusion. Patient recently came home today and the family is concerned over how confused she is. She has worsening of her pneumonia on her chest x-ray and has an elevation in her white blood cell count. Therefore blood cultures were obtained patient was started on Rocephin as well as Levaquin. CAT scan of the head is showing old lacunar infarcts. I did discuss the case with the hospitalist service who did agree to admit the patient. Patient family are in agreement with the treatment plan. Impression & Plan Altered mental status, Dementia, Acute UTI, Pneumonia Discharge Plan Visit Data Chief Complaint: Confusion Stated Complaint: CONFUSION, COULDNT FORM SENTENCES ED Provider: Diallo Rich Discharge Problem: Altered mental status, Dementia, Acute UTI, Pneumonia Forms Stand Alone Forms: My [facility] [employer] Prescriptions Prescriptions: No Action multivitamin Tablet 1 tab PO DAILY RF: 0 sennosides 8.6 mg Tablet 8.6 mg PO DAILY RF: 0 acetaminophen 325 mg Tablet 650 mg PO Q6H PRN (Reason: Fever Or Pain) RF: 0 cetirizine [Zyrtec] 10 mg Tablet 10 mg PO DAILY RF: 0 tramadol 50 mg Tablet 50 mg PO Q4H PRN (Reason: Pain - Moderate/Severe) RF: 0 ascorbic acid (vitamin C) 500 mg Tablet 500 mg PO BID RF: 0 polyethylene glycol 3350 [GlycoLax] 17 gram/dose Powder 17 g PO DAILY RF: 0 fluticasone propionate 50 mcg/actuation spray,suspension 2 spray INTRANASAL DAILY RF: 0 cholecalciferol (vitamin D3) [Vitamin D3] 2,000 unit Tablet 2,000 unit PO DAILY RF: 0 Victoza 3-Rober 0.6 mg/0.1 mL (18 mg/3 mL) pen injector 1.8 mg SUBCUT QAM RF: 0 ProAir RespiClick 90 mcg/actuation Aerosol Powdr Breath Activated 2 inh INHALATION Q4H PRN (Reason: Shortness Of Breath Or Wheezing) RF: 0 Levemir FlexTouch U-100 Insuln 100 unit/mL (3 mL) insulin pen 30 unit subcut QAM RF: 0 losartan 50 mg tablet 50 mg PO DAILY RF: 0 propranolol 120 mg capsule,extended release 24 hr 120 mg PO DAILY RF: 0 solifenacin 5 mg tablet 5 mg PO DAILY RF: 0 amlodipine [Norvasc] 5 mg Tablet 5 mg PO QAM Qty: 30 RF: 0 Discharge Problem: Altered mental status Qualifiers: Altered mental status type: unspecified Qualified Code(s): R41.82 - Altered mental status, unspecified Dementia Qualifiers: Dementia type: unspecified type Dementia behavioral disturbance: without behavioral disturbance Qualified Code(s): F03.90 - Unspecified dementia without behavioral disturbance Pneumonia Qualifiers: Pneumonia type: due to unspecified organism Laterality: unspecified laterality Lung location: unspecified part of lung Qualified Code(s): J18.9 - Pneumonia, unspecified organism The scribe's documentation has been prepared under my direction and personally reviewed by me in its entirety. I confirm that the note above accurately reflects all work, treatment, procedures, and medical decision making performed by me.
--- NOTE | 2019-06-06 23:34 | Discharge Summary ---
Date of Service June 06, 2019 Discharge Data Allergies Allergy/AdvReac Type Severity Reaction Status Date / Time No Known Allergies Allergy Verified 06/06/19 20:04 Consultations 06/06/19 21:21 ED Decision to Admit Stat Ordered Studies 06/06/19 19:37 CT head/brain wo con Stat Discharge Plan Forms Stand Alone Forms: [facility] Prescriptions Prescriptions: No Action multivitamin Tablet 1 tab PO DAILY RF: 0 sennosides 8.6 mg Tablet 8.6 mg PO DAILY RF: 0 acetaminophen 325 mg Tablet 650 mg PO Q6H PRN (Reason: Fever Or Pain) RF: 0 cetirizine [Zyrtec] 10 mg Tablet 10 mg PO DAILY RF: 0 tramadol 50 mg Tablet 50 mg PO Q4H PRN (Reason: Pain - Moderate/Severe) RF: 0 ascorbic acid (vitamin C) 500 mg Tablet 500 mg PO BID RF: 0 polyethylene glycol 3350 [GlycoLax] 17 gram/dose Powder 17 g PO DAILY RF: 0 fluticasone propionate 50 mcg/actuation spray,suspension 2 spray INTRANASAL DAILY RF: 0 cholecalciferol (vitamin D3) [Vitamin D3] 2,000 unit Tablet 2,000 unit PO DAILY RF: 0 Victoza 3-Rober 0.6 mg/0.1 mL (18 mg/3 mL) pen injector 1.8 mg SUBCUT QAM RF: 0 ProAir RespiClick 90 mcg/actuation Aerosol Powdr Breath Activated 2 inh INHALATION Q4H PRN (Reason: Shortness Of Breath Or Wheezing) RF: 0 Levemir FlexTouch U-100 Insuln 100 unit/mL (3 mL) insulin pen 30 unit subcut QAM RF: 0 losartan 50 mg tablet 50 mg PO DAILY RF: 0 propranolol 120 mg capsule,extended release 24 hr 120 mg PO DAILY RF: 0 solifenacin 5 mg tablet 5 mg PO DAILY RF: 0 amlodipine [Norvasc] 5 mg Tablet 5 mg PO QAM Qty: 30 RF: 0
--- NOTE | 2019-06-07 00:16 | History & Physical Report ---
Date of Service June 07, 2019 Assessment & Plan (1) Altered mental status: 84-year-old female with history of bronchiectasis, diabetes, hypertension, CVA, recent left hip fracture, status post repair, other problems noted below Presenting with confusion starting late this afternoon. Mental status/confusion likely encephalopathy secondary to possible pneumonia, bronchiectasis exacerbation Rule out CVA --Patient has a history of bronchiectasis and FATOUMATA infection, old lacunar infarcts --Presenting with confusion observed by family members late afternoon today --Initial CT head: No acute CVA, old lacunar infarcts Chest x-ray: Reticulonodular infiltrates right more than left --CT chest ordered --Blood cultures: Pending Urine cultures: Ordered --Start with empiric Zosyn plus doxycycline (for possible healthcare associated pneumonia), MRSA nasal swab pending Xopenex/Atrovent every 6 hours --Pulmonary service consulted --Brain MRI blood cultures ordered to rule out acute CVA CT head confirms old lacunar infarcts, patient not on aspirin or Plavix yet, will start aspirin 81 mg p.o. daily Neurochecks every 4 hours Hyponatremia --Sodium 129, patient appears to be in the dry side, will start IV NSS at 60 cc/h Plasma osmolality and urine sodium ordered --Repeat sodium at around 4 AM Monitor closely Diabetes type 2 --Usually on Levemir and Victoza --Patient's appetite poor today as per family -- hold Levemir for now, pharmacy glycemic control consulted Hypertension --Slightly elevated secondary to stress Continue amlodipine, losartan, propranolol for now Monitor closely History of CVA --CT head confirms old lacunar infarcts, patient not yet on aspirin, start aspirin 81 mg daily Possible Parkinson disease --Recently evaluated by neurologist in [facility], work-up in progress --We will order PT/OT evaluation Recent left hip fracture, status post ORIF --Discharged at noon today from [facility] --Presently wheelchair-bound as per family, denies hip pain --PT OT evaluation DVT prophylaxis Heparin subcutaneous 5000 units every 12 CODE STATUS DNR as confirmed by patient and her daughter Aster at the bedside Disposition Discharged home today from [facility] will order PT/OT evaluation Plan of care discussed with patient and daughter in detail and at length All questions answered They are understanding, agreeable, comfortable with the plan of care Dr. Mary Maldonado will be taking care of the patient starting tomorrow June 07, 2019 History of Present Illness 84-year-old female with history of bronchiectasis, diabetes, hypertension, CVA, recent left hip fracture status post repair, other problems noted below presenting with Confusion which was noticed this afternoon. She obtained from patient and her daughter at the bedside. About 2 weeks ago, patient was noted to have upper respiratory tract symptoms. PCP prescribed a course of prednisone which according to the patient's daughter did not alleviate the symptoms. Over the past few days, the patient was also noticed to have increased cough, productive of phlegm but no fevers or chills noted. The patient was discharged from [facility] and returned to her home around noon. Later in the afternoon, patient's family noticed that the patient was becoming confused, and was saying things which did not make any sense. She was given orange juice with the thought that this may be related to blood sugar, but patient's blood sugar was not taken and symptoms did not improve. Patient's confusion persisted prompting family to bring the patient to the emergency room. At the ER, patient was received with stable vital signs, afebrile. Chest x-ray showed increased reticulonodular opacities in both lungs worse on the right. She was given Levaquin, and ceftriaxone. On exam, the patient is seen sitting up in bed, awake and alert, oriented x2, answers most questions appropriately occasionally tangential. She reports some mild dyspnea this afternoon, and confirms persistent productive cough without fever or chills. She denies any weakness or numbness or any other symptoms. Primary Care Provider: Jesus Massey DO Allergies Allergy/AdvReac Type Severity Reaction Status Date / Time No Known Allergies Allergy Verified 06/06/19 20:04 Home Medications Home Medications Medication Instructions Recorded Confirmed Type losartan 50 mg PO DAILY 08/26/18 06/06/19 History propranolol 120 mg PO DAILY 08/26/18 06/06/19 History solifenacin 5 mg PO DAILY 03/20/19 06/06/19 History amlodipine [Norvasc] 5 mg PO QAM #30 tab 03/25/19 06/06/19 Rx Levemir FlexTouch U-100 Insuln 30 unit SUBCUT QAM 05/20/19 06/06/19 History acetaminophen 650 mg PO Q6H PRN 05/20/19 06/06/19 History albuterol sulfate [ProAir 2 inh INHALATION Q4H PRN 05/20/19 06/06/19 History RespiClick] ascorbic acid (vitamin C) 500 mg PO BID 05/20/19 06/06/19 History cetirizine [Zyrtec] 10 mg PO DAILY 05/20/19 06/06/19 History cholecalciferol (vitamin D3) 2,000 unit PO DAILY 05/20/19 06/06/19 History [Vitamin D3] fluticasone propionate 2 spray INTRANASAL DAILY 05/20/19 06/06/19 History liraglutide [Victoza 3-Rober] 1.8 mg SUBCUT QAM 05/20/19 06/06/19 History multivitamin 1 tab PO DAILY 05/20/19 06/06/19 History polyethylene glycol 3350 [GlycoLax] 17 g PO DAILY 05/20/19 06/06/19 History sennosides 8.6 mg PO DAILY 05/20/19 06/06/19 History tramadol 50 mg PO Q4H PRN 05/20/19 06/06/19 History Past Med/Surg History Medical History Degenerative arthritis of cervical spine (Acute) Diabetes (Chronic) History of right hip replacement (Resolved) Left elbow fracture (Acute) Osteoporosis (Chronic) Stroke (Resolved) Family History Other No pertinent family history Social History Preferred Language: Nauruan Communication Ability: Effective Compliance Clerk Required: No Beliefs That Will Affect Care: None Current Living Situation: Spouse Feels Safe at Home: Yes Smoking Status: Never smoker Second Hand Exposure: No ; Hx Alcohol Use: No Hx Substance Use: No Review of Systems Review of Systems: All systems reviewed & are unremarkable except as noted in HPI & below Physical Exam Physical Exam: General- oriented x 2, not in distress, speaks in sentences with no effort or accessory muscle use Head- atraumatic Eyes- PERRL, EOMI, anicteric ENT- oropharynx clear Neck- supple, no JVD, no adenopathy, no thyromegaly; carotids +2/2, no bruits appreciated Lungs-positive crackles, mild, bilateral bases, no wheezing Heart- normal rate, regular rhythm; no murmur, no gallop, no rub appreciated Abdomen- normal bowel sounds, nondistended, soft, nontender, no masses or hepatosplenomegaly Extremities- no pretibial edema, no calf tenderness; peripheral pulses intact Neuro- alert, oriented x 2; CN 2-12 grossly intact except for mild dysarthria- chronic and mild right facial droop-chronic; motor 5/5 bilaterally;sensation 100% on all extremities; no other gross focal neurologic deficits Skin- warm & dry Results & Data Vital Signs (Past 12 Hours) Vital Signs Temp Pulse Pulse Resp BP BP Pulse Ox 06/06/19 23:52 89 18 158/85 H 94 06/06/19 23:10 91 H 18 151/81 H 95 06/06/19 22:20 95 H 25 H 91 06/06/19 22:10 93 H 22 94 06/06/19 22:01 91 H 23 93 06/06/19 22:00 97 H 28 H 142/85 H 92 06/06/19 21:50 90 22 94 06/06/19 21:40 95 H 20 94 06/06/19 21:31 91 H 20 156/71 H 100 06/06/19 21:30 90 16 93 06/06/19 21:20 91 H 16 06/06/19 21:19 91 H 20 97 06/06/19 21:10 90 28 H 06/06/19 21:01 91 H 19 06/06/19 21:00 92 H 22 156/69 H 96 06/06/19 20:50 90 23 95 06/06/19 20:40 88 23 96 06/06/19 20:37 88 25 H 95 06/06/19 20:20 87 26 H 97 06/06/19 20:10 85 27 H 100 06/06/19 20:04 100 06/06/19 20:00 87 22 06/06/19 19:55 82 20 97 06/06/19 19:51 84 27 H 95 06/06/19 19:40 89 20 06/06/19 19:39 88 24 06/06/19 19:30 87 26 H 160/79 H 06/06/19 19:07 37.0 C 86 22 171/73 H 95 Code Status & VTE Plan VTE Prophylaxis Plan VTE Prophylaxis will be ordered: Yes (1) Altered mental status Altered mental status type: unspecified Qualified Code(s): R41.82 - Altered mental status, unspecified
[2019-06-07] MEDS ORDERED: SODIUM CHLORIDE 0.9% 1000ML 1,000 ML IV SCH (00:40)
[2019-06-07] MEDS ORDERED: ACETAMINOPHEN 325 MG TAB PO PRN (00:40)
[2019-06-07] MEDS ORDERED: TRAMADOL HCL 50 MG TABLET PO PRN (00:40)
[2019-06-07] MEDS ORDERED: GLUCAGON FOR INJ 1 MG VIAL SQ PRN (01:00)
[2019-06-07] MEDS ORDERED: PIPERACILLIN/TAZOBACTAM 3.375 GM in DEXTROSE 5% 100 ML IV ONE (01:00)
[2019-06-07] MEDS ORDERED: PATIENT'S HEIGHT AND/OR WEIGHT NEEDED SCH (01:00)
[2019-06-07] MEDS ORDERED: XOPENEX/ATROVENT 1.25mg/0.5MG NEB COMBO NEB SCH (01:00)
[2019-06-07] MEDS ORDERED: GLUCOSE 40% GEL 15 GM TUBE PO PRN (01:00)
[2019-06-07] MEDS ORDERED: DOXY~PHARMACY CONSULT IN PROGRESS PRN (01:00)
[2019-06-07] MEDS ORDERED: CARBOHYDRATES FOR HYPOGLYCEMIA PO PRN (01:00)
[2019-06-07] MEDS ORDERED: DEXTROSE 50% 50 ML SYRINGE IV PRN (01:00)
[2019-06-07] MEDS ORDERED: GLUCOSE 10 TABS/TUBE PO PRN (01:00)
[2019-06-07] MEDS ORDERED: PIPERACILL/TAZOBAC CONSULT ACTIVE PRN (01:02)
[2019-06-07] MEDS ORDERED: PHARMACY GLYCEMIC MGMT CONSULT PRN (01:02)
[2019-06-07] MEDS ORDERED: ALBUTEROL HFA 8 GM INHALER INH PRN (01:03)
[2019-06-07] MEDS: IPRATROPIUM BROMIDE NEB SOLN 0.02% 2.5 ML VIAL INH SCH ×4 (01:07→19:26)
[2019-06-07] MEDS: LEVALBUTEROL 1.25MG/0.5ML NEB INH SCH ×4 (01:08→19:26)
[2019-06-07 01:11] LABS: Basophils # (auto) 0.01 K/uL (0-0.2); Basophils % (auto) 0.1 %; Eosinophils # (auto) 0.32 K/uL (0-0.5); Eosinophils % (auto) 2.3 %; Hematocrit (blood only) 36.2 % (37-47); Hemoglobin 11.4 g/dL (12.0-16.0); Immature Granulocytes # (auto) 0.03 K/uL (0.00-0.02); Immature Granulocytes % (auto) 0.2 %; Lymphocytes # (auto) 2.03 K/uL (1.2-3.4); Lymphocytes % (auto) 14.7 %; Mean Corpuscular Hemoglobin 23.4 pg (25-34); Mean Corpuscular Hgb Conc 31.5 g/dL (32-36); Mean Corpuscular Volume 74.3 fL (80-100); Mean Platelet Volume 8.3 fL (7.4-10.4); Monocytes # (auto) 1.28 K/uL (0.11-0.59); Monocytes % (auto) 9.3 %; Neutrophils # (auto) 10.12 K/uL (1.4-6.5); Neutrophils % (auto) 73.4 %; Platelet Count 391 K/uL (130-400); RDW Coefficient of Variation 15.2 % (11.5-14.5); RDW Standard Deviation 41.4 fL (36.4-46.3); Red Blood Count 4.87 M/uL (4.2-5.4); White Blood Count 13.79 K/uL (4.8-10.8)
[2019-06-07] MEDS ORDERED: DOXYCYCLINE HYCLATE 100 MG in DEXTROSE 5% 100 ML IV ONE (01:30)
[2019-06-07] MEDS: INSULIN ASPART 100 UNITS/ML 3 ML PEN SC SCH ×5 (01:31→21:56)
[2019-06-07 01:38] LABS: BUN Creatinine Ratio 18.1 (10-20); Blood Urea Nitrogen 9 mg/dl (7-18); Calcium 8.7 mg/dl (8.5-10.1); Carbon Dioxide 30 mmol/L (21-32); Chloride 98 mmol/L (98-107); Est GFR (African American) 103.1; Est GFR (Non-African American) 88.9; Glucose 127 mg/dl (70-99); Potassium 3.8 mmol/L (3.5-5.1); Sodium 131 mmol/L (136-145)
[2019-06-07 06:14] LABS: Basophils # (auto) 0.01 K/uL (0-0.2); Basophils % (auto) 0.1 %; Eosinophils # (auto) 0.23 K/uL (0-0.5); Eosinophils % (auto) 1.8 %; Hemoglobin 11.3 g/dL (12.0-16.0); Immature Granulocytes # (auto) 0.05 K/uL (0.00-0.02); Immature Granulocytes % (auto) 0.4 %; Lymphocytes # (auto) 1.54 K/uL (1.2-3.4); Lymphocytes % (auto) 12.1 %; Mean Corpuscular Hemoglobin 23.2 pg (25-34); Mean Corpuscular Hgb Conc 31.4 g/dL (32-36); Mean Corpuscular Volume 73.9 fL (80-100); Mean Platelet Volume 8.5 fL (7.4-10.4); Monocytes # (auto) 1.26 K/uL (0.11-0.59); Monocytes % (auto) 9.9 %; Neutrophils # (auto) 9.62 K/uL (1.4-6.5); Neutrophils % (auto) 75.7 %; Platelet Count 360 K/uL (130-400); RDW Coefficient of Variation 15.2 % (11.5-14.5); RDW Standard Deviation 41.2 fL (36.4-46.3); Red Blood Count 4.87 M/uL (4.2-5.4); White Blood Count 12.71 K/uL (4.8-10.8)
[2019-06-07] MEDS: PIPERACILLIN/TAZOBACTAM 3.375 GM in DEXTROSE 5% 100 ML IV SCH ×3 (06:27→21:56)
[2019-06-07 06:31] LABS: BUN Creatinine Ratio 16.7 (10-20); Calcium 8.7 mg/dl (8.5-10.1); Creatinine Clr Calc Pharmacy 59.9 ml/min; Est GFR (African American) 102.4; Est GFR (Non-African American) 88.4; Potassium 3.6 mmol/L (3.5-5.1)
--- NOTE | 2019-06-07 07:22 | Magnetic Resonance Report ---
Brain MRI WITHOUT CONTRAST HISTORY: altered mental status, r/o cva TECHNIQUE: Multiplanar multisequence MRI of the brain was performed without the use of contrast. COMPARISON STUDY: Head CT 06/06/2019. FINDINGS: No areas of restricted diffusion to suggest acute infarction. The midline structures are in tact. Patchy periventricular white matter T2 hyperintensity is nonspecific but suggestive of moderate microvascular ischemic change. Fluid levels with near complete opacification of the right sphenoid s inus and left maxillary sinus consistent with acute sinusitis. Moderate atrophic changes are noted. A few old scattered lacunar infarcts are again noted. There is no mass, hematoma, midline shift. The m ajor vascular flow voids at the skull base are well-maintained. IMPRESSION: 1. No acute intracranial abnormality. 2. Acute sinusitis as described above. 3. Atrophy and microvascular ischemic changes are again noted. ACT 112: Negative or not required by law. Electronically signed by: Jose Glez M.D. 06/07/2019 7:20 AM
--- NOTE | 2019-06-07 07:26 | CT Scan Report ---
CT chest wo con CT DOSE: 467.78 mGy.cm HISTORY: bronchiectasis, possible pneumonia TECHNIQUE: Multiaxial CT images of the chest were performed without contrast. A dose lowering techni que was utilized adhering to the principles of ALARA. COMPARISON: Chest CT 07/31/2018. FINDINGS: No pneumothorax. No pleural effusions. Partial mucoid opacification of the bronchus interme dius and a few the right middle lobe bronchi. Interval progression of the scattered tree-in-bud nodul ar densities seen throughout the lungs. This is most pronounced within the anterior segment of the ri ght upper lobe. There are few associated small scattered areas of consolidation which also progressed . No suspicious lytic or blastic osseous lesions. The visualized liver and spleen are unremarkable. S mall hiatus hernia. Borderline mediastinal lymphadenopathy which could be reactive. There are calcifi ed left hilar lymph nodes. IMPRESSION: 1. Progressive tree-in-bud nodularity seen throughout the lungs with partial mucoid opacification of the bronchi. This can be seen in the setting of an infectious bronchiolitis possibly due to an atypic al mycobacterial infection such as FATOUMATA or less likely aspiration. 2. Small hiatus hernia. 3. Mild mediastinal lymphadenopathy which may be reactive. ACT 112: Negative or not required by law. Electronically signed by: Jose Glez M.D. 06/07/2019 7:25 AM
[2019-06-07] MEDS ORDERED: VESICARE~ORDER AWAITING ACTION SCH (08:00)
[2019-06-07] MEDS: FLUTICASONE PROPIONATE NA SPR 16 GM BTL SCH (08:30)
[2019-06-07] MEDS: ASPIRIN 81 MG ECTAB PO SCH (08:32)
[2019-06-07] MEDS: PROPRANOLOL HCL 60 MG LA CAP PO SCH (08:32)
[2019-06-07] MEDS: SENNA 8.6 MG TAB PO SCH (08:32)
[2019-06-07] MEDS: LOSARTAN POTASSIUM 50 MG TAB PO SCH (08:32)
[2019-06-07] MEDS: CETIRIZINE HCL 10 MG TABLET PO SCH (08:32)
[2019-06-07] MEDS: HEPARIN SOD 5,000 UNIT/0.5 ML VIAL SQ SCH ×2 (08:33→21:48)
[2019-06-07] MEDS: AMLODIPINE BESYLATE 5 MG TAB PO SCH (08:33)
[2019-06-07] MEDS: POLYETHYLENE (MIRALAX) 17 GM PACK PO SCH (08:38)
[2019-06-07] MEDS ORDERED: INSULIN DETEMIR FLEXPEN/FLEX TOUCH 100 UNITS/ML 3ML SC SCH ×2 (09:00)
--- NOTE | 2019-06-07 12:04 | Pharmacy Report ---
Glycemic Control Consultation - Date of Service June 07, 2019 - Scope Scope: Glycemic Pharmacist consulted by Dr Navarro on 06/07/19 for glycemic control and to write orders per [facility] inpatient glycemic control protocol - Objective Weight: 46.3 kg Accuchecks BSG (last 24hrs): 06/06/19 06/07/19 06/07/19 20:01 01:02 01:30 Glucose 139 H 127 H POC Glucose 124 H 06/07/19 06/07/19 06/07/19 05:48 07:40 11:21 Glucose 143 H POC Glucose 176 H 199 H Laboratory Data (last 24hrs): 06/06/19 06/07/19 06/07/19 20:01 01:02 01:02 Potassium 4.6 3.8 D Carbon Dioxide 32 30 Anion Gap 0 L 3.0 Creatinine 0.67 0.51 L Est Cr Clr Drug Dosing Not Reportable Not Reportable Osmolality 275 L 06/07/19 05:48 Potassium 3.6 Carbon Dioxide 28 Anion Gap 6.0 Creatinine 0.52 L Est Cr Clr Drug Dosing 59.9 Osmolality - Recent Pertinent Medications Outpatient Anti-diabetic Regimen: * Levemir 30 units daily plus Victoza 1.8 mg daily * A1c = 7.0 % 03/21/19 Risk Factors for Insulin Resistance: * Infection: doxycycline/Zosyn * Diet: T2DM - Assessment & Plan Assessment & Plan: ASSESSMENT: * Ms Olivo is an 84 y/o F with a PMH of well controlled T2DM on insulin plus injectable who presents with AMS. Concern for decreased PO intake. * In reference to previous hospitalization, patient required between Levemir 20- 25 units daily. Lean towards lower end due to poor PO intake. * Continue Novolog from previous admission. Provided adequate control without being too aggressive. * Will utilize slightly higher goal range of 120-160 mg/dL since tight glycemic control not warranted due to patient's condition. PLAN FOR INPATIENT GLYCEMIC CONTROL: * Basal insulin * Levemir 20 units SQ qAM * Bolus insulin * NovoLog per scale ACHS or Q6hrs while NPO * Goal Range: Low 120 mg/dL - High 160 mg/dL * Correction Factor: 25 mg/dL/unit * Nutritional / Prandial insulin per carb ratio of 1 unit per 9 grams CHO consumed * Please note that the plan above was derived based on current level of insulin resistance and hospital stress. These recommendations are appropriate for inpatient admission only. Plan of care upon discharge will need to be reassessed to avoid potential outpatient hypo/hyperglycemia. Thank you.
[2019-06-07] MEDS: MUPIROCIN 2% OINT 22 GM TUBE INTNAS SCH ×2 (12:32→21:48)
--- NOTE | 2019-06-07 13:05 | Pulmonary Consultation ---
Date of Consultation June 07, 2019 Assessment & Plan (1) Mycobacterium avium complex: Patient underwent bronchoscopy March [address] Najera BAL was negative for malignancy Cultures for AFB were sent out and revealed MAC That time patient had no symptoms and was very active with travel and it was felt due to age that she would not tolerate triple antibiotic therapy Patient now has recurrent and more frequent upper respiratory symptoms most likely due to her chronic MAC It is unknown whether the MAC has colonized or not but treatment should not start acutely in the inpatient setting Would recommend follow-up in 3 months and have gisell discussion with patient and family about benefit versus risk of triple antibiotic therapy. (2) Pneumonia: Patient noted to have reports of aspiration back to 2014 Patient was started on Zosyn. 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 Please refer to Dr. Chandler's addendum and corrections for further recommendations. Supervising Physician Co-Signing Physician Notes Patient seen and examined. Films were independently reviewed. Discussed with patient and family at bedside with GIDEON salazar. Agree with his assessment and plan as noted. The patient's radiographic appearance may be consistent with progression of nontuberculous mycobacterial disease. She certainly appears to have an exacerbation of bronchiectasis currently. She is currently receiving Zosyn which would be reasonable for an exacerbation of her bronchiectasis given prior cultures growing Pseudomonas. Recommend repeating sputum culture at this point in time to determine current respiratory rich to guide additional antimicrobial therapy. If Pseudomonas remains problematic, consideration for entities such as inhaled tobramycin may be effective. Would continue flutter valve and hypertonic saline in an effort to improve pulmonary toilet. The possibility of progression of the patient's underlying NTM infection was discussed with patient and family. The CT findings may represent progression of her NTM infection. It may be reasonable to readdress therapy should the patient's radiograph failed to improve or if she should fail to make clinical progress. Unclear if she would tolerate 12 to 18 months of therapy. Given the fact that she has frequently been placed on macrolides, there would be some concern about potential macrolide resistance. May need to get updated respiratory cultures and will request AFB cultures on sputum currently to guide additional discussions and therapy. The above recommendations and plan were extensively discussed with the patient and family members at the bedside. Questions were answered to the best my ability. History of Present Illness Attending Physician: Mary Maldonado DO History of Present Illness Attending: Dr. Chandler Is an 84-year-old female with a past medical history including diabetes mellitus type 2, hypertension, urge incontinence, GERD, bronchiectasis, dysphagia, history of FATOUMATA diagnosed by bronchoscopy in 2016, allergic rhinitis, hearing difficulty. The patient had an upper respiratory infection over the holidays similar to her daughter who is in visiting from [place]. The daughter states that they are currently looking to get a home for the mother and father will localize for care. The patient had a recent fall and broke her left hip and was in rehab at [facility]. The patient went home yesterday at noon and was found to be disoriented and confused and brought to the emergency department. The patient has had a cough for the last 2 to 3 weeks per family which yields very little sputum. The patient reports that she has some sputum production in the morning and that it clears throughout the day. The daughter indicates that she has never seen her mother expectorate anything. The patient denies fever, chills, sweats, rigors. Aside from her cough she has no acute respiratory complaints. Review of patient's medical record with [facility] shows that she began following with Dr. Dorothy Reyes (fellow) from pulmonology and was seen on 02/15/2019 and again on 05/20/2019. Patient was also seen by her attending, Candy Eli DO, MPH who agreed that triple antibiotic therapy should be avoided due to severity of symptoms and patient's advanced age. Patient is scheduled to see Fifi Nielsen MD and pulmonary medicine 10/20/2019 at 1:30 PM for follow-up. Prior to that, patient was seen by Dr. Tyree Wolf and [facility] pulmonology division 02/14/[address] scan secondary to 31 x 33 mm right upper lobe groundglass-like mass as well as a 5 mm left lower lobe nodule. Patient was treated with antibiotics at that time and follow-up CT 01/24/2015 sh owed improvement. There was tree-in-bud opacity at that time as well. She admitted to aspiration at that time secondary to dysphasia. Patient was next seen by Sherin Granado PA-C 03/29/[address] chest CT. The patient was referred to Dr. Yovany Najera who performed bronchoscopy at [facility] 04/08/2016 which revealed no malignant cells, benign bronchial epithelial cells, neutrophils, and pulmonary macrophages. Cultures from that bronchoscopy grew out quinolone sensitive Pseudomonas auergonosa. Patient was started on Levaquin. Reference lab cultures then revealed MAC 04/2016. Inasmuch as she was active with travel and excellent mobility and was asymptomatic, it was decided that time not to treat with triple antibiotic therapy for MAC. She has followed with [facility] pulmonary since that time and has deferred on treatment for MAC. Each encounter reported cough worsened morning and improving throughout the day with minimal sputum. Since that time she has multiple pulmonary visits and treated off and on with azithromycin. Her most recent visit to [facility] pulmonary medicine was 08/03/2018. Pulmonary function testing was completed 01/09/2018 with a moderate decrease in FEV1 and FVC. FVC 57% of predicted, FEV1 63% of predicted, FEV1/FVC 108% of predicted, SVC 68% of predicted, TLC 104% of predicted, RV/TLC 138% of predicted Most recent echocardiogram 02/10/2018 shows a preserved left ventricular ejection fraction of 55 to 60% with mild to moderate mitral regurgitation, grade 2 diastolic dysfunction, mild to moderate valvular regurgitation involving tricuspid, mitral, and pulmonic valve. Patient is using [facility] and received nebulizer equipment 02/17/2019. Allergies Allergy/AdvReac Type Severity Reaction Status Date / Time No Known Allergies Allergy Verified 06/06/19 20:04 Home Medications Home Medications Medication Instructions Recorded Confirmed Type losartan 50 mg PO DAILY 08/26/18 06/06/19 History propranolol 120 mg PO DAILY 08/26/18 06/06/19 History solifenacin 5 mg PO DAILY 03/20/19 06/06/19 History amlodipine [Norvasc] 5 mg PO QAM #30 tab 03/25/19 06/06/19 Rx Levemir FlexTouch U-100 Insuln 30 unit SUBCUT QAM 05/20/19 06/06/19 History acetaminophen 650 mg PO Q6H PRN 05/20/19 06/06/19 History albuterol sulfate [ProAir 2 inh INHALATION Q4H PRN 05/20/19 06/06/19 History RespiClick] ascorbic acid (vitamin C) 500 mg PO BID 05/20/19 06/06/19 History cetirizine [Zyrtec] 10 mg PO DAILY 05/20/19 06/06/19 History cholecalciferol (vitamin D3) 2,000 unit PO DAILY 05/20/19 06/06/19 History [Vitamin D3] fluticasone propionate 2 spray INTRANASAL DAILY 05/20/19 06/06/19 History liraglutide [Victoza 3-Rober] 1.8 mg SUBCUT QAM 05/20/19 06/06/19 History multivitamin 1 tab PO DAILY 05/20/19 06/06/19 History polyethylene glycol 3350 [GlycoLax] 17 g PO DAILY 05/20/19 06/06/19 History sennosides 8.6 mg PO DAILY 05/20/19 06/06/19 History tramadol 50 mg PO Q4H PRN 05/20/19 06/06/19 History Patient History Medical History (Updated 06/07/19 @ 14:10 by Jhonatan Salazar PA-C) Abnormal CT of the chest Degenerative arthritis of cervical spine (Acute) Diabetes (Chronic) History of right hip replacement (Resolved) Left elbow fracture (Acute) Mycobacterium avium complex Osteoporosis (Chronic) Stroke (Resolved) Traction bronchiectasis Surgical History (Updated 06/07/19 @ 14:02 by Jhonatan Salazar PA-C) History of bronchoscopy 03/[address] Najera Family History Other No pertinent family history Social History Preferred Language: Romanian Communication Ability: Effective Shaker Operator Required: No Beliefs That Will Affect Care: None Current Living Situation: Spouse Feels Safe at Home: No Is there a partner from a previous relationship who is making you feel unsafe now?: No Smoking Status: Never smoker Second Hand Exposure: No ; Hx Alcohol Use: No Hx Substance Use: No Review of Systems Review of Systems: All systems reviewed & are unremarkable except as noted in HPI & below Physical Exam Physical Exam: GENERAL : No acute distress EYES: No icterus, gaze conjugate NOSE: No evidence of epistaxis MOUTH: No lesions or candidiasis NECK: Supple LUNGS: Rhonchorous cough. Otherwise, CTA B/L, no wheezes, rales or rhonchi HEART: Regular, rate controlled ABDOMEN: Soft, NT, ND, BS Present EXTREMITIES: No LE edema, pedal pulses intact NEURO: A&OX3 Results & Data Vital Signs (Past 12 Hours) Vital Signs Temp Pulse Pulse Resp BP Pulse Ox 06/07/19 11:27 37.5 C 89 17 137/64 90 06/07/19 07:55 36.9 C 100 H 20 152/79 H 90 06/07/19 07:25 97 H 06/07/19 06:48 91 H 18 90 06/07/19 01:10 90 16 92 Laboratory Results 06/07/19 05:48 06/07/19 05:[address] chest wo con 06/07/2019 CT DOSE: 467.78 mGy.cm HISTORY: bronchiectasis, possible pneumonia TECHNIQUE: Multiaxial CT images of the chest were performed without contrast. A dose lowering technique was utilized adhering to the principles of ALARA. COMPARISON: Chest CT 07/31/2018. FINDINGS: No pneumothorax. No pleural effusions. Partial mucoid opacification of the bronchus intermedius and a few the right middle lobe bronchi. Interval progression of the scattered tree-in-bud nodular densities seen throughout the lungs. This is most pronounced within the anterior segment of the right upper lobe. There are few associated small scattered areas of consolidation which also progressed. No suspicious lytic or blastic osseous lesions. The visualized liver and spleen are unremarkable. Small hiatus hernia. Borderline mediastinal lymphadenopathy which could be reactive. There are calcified left hilar lymph nodes. IMPRESSION: 1. Progressive tree-in-bud nodularity seen throughout the lungs with partial mucoid opacification of the bronchi. This can be seen in the setting of an infectious bronchiolitis possibly due to an atypical mycobacterial infection suc h as FATOUMATA or less likely aspiration. 2. Small hiatus hernia. 3. Mild mediastinal lymphadenopathy which may be reactive. ACT 112: Negative or not required by law. Electronically signed by: Jose Glez M.D. 06/07/2019 7:25 AM PG Care Time/CCT Total # of Minutes Spent Total Time Spent with Patient: Total time spent is greater than 50% in coordination of care (as documented) at patient's floor/unit and/or counseling patient:65 minutes including review of [facility] Record and discussion with patient, sister, and daughter
[2019-06-07] MEDS: DOXYCYCLINE HYCLATE 100 MG in DEXTROSE 5% 100 ML IV SCH (14:39)
--- NOTE | 2019-06-07 14:50 | Hospitalist Progress Note ---
Date of Service June 07, 2019 Assessment & Plan (1) Altered mental status: resolved with antibiotics and IVF overnight. (2) Pneumonia: Likely atypical pneumonia causing her acute confusion, improved on current antibiotics. No gisell infiltrate, however, she does have bronchiectasis that is known with a h/o Pseudomonas in the past. Sputum culture pending to narrow therapy. (3) Traction bronchiectasis: Plan as above and hypertonic saline neb ordered with mucinex. (4) Mycobacterium avium complex: Pulm recommends repeat evaluation in the next couple of months to have the discussion of treatment again as outpatient. (5) Diabetes: At goal on basal bolus insulin while hospitalized. (6) H/O: CVA (cerebrovascular accident): residual left sided weakness. Weakness is not noted on exam today, however, she does have some difficulty controlling the intentional movements of these limbs. (7) MRSA carrier: Bactroban started intranasally. No open wound. As she has improved clinically on current abx, Vanc was considered but thought unnecessary. (8) Hyponatremia: Persistent. Repeat Na in am after IVF given. (9) DVT prophylaxis: Heparin DNR Dispo-pending PT/OT consultation. Daughter is somewhat concerned as both patient and her have a high likelihood of becoming confused at home and not having adequate help. Per our discussion today, she is working with her sister (both are POA) to get more help in the house and extend the hours. Appreciate CM help with this. Both daughters live in [facility] Subjective 84 yo F with acute altered mental status overnight with word finding difficulty. She was admitted and placed on broad spectrum antibiotics and IVF with improvement overnight. Workup revealed no evidence of UTI, a normal brain MRI and possible atypical pneumonia causing her symptoms. She does report a dry cough for the past 2 weeks and has a h/o NTM that was diagnosed a couple of years ago but left untreated. She denies any fevers, chills, UTI symptoms, GI symptoms or stroke like symptoms at this time. She is mentating at baseline per daughter who is at bedside and who flew in from [place]. She was also seen to have acute sinusitis noted on MRI, however, denies any sinus pain, ear fullness. She does report blowing some greenish mucous from her nose recently. Review of Systems Review of Systems: All systems reviewed & are unremarkable except as noted in HPI & below Physical Exam Physical Exam: CONSTITUTIONAL: WNWD, vitals as above, generally well- appearing EYES: normal conjunctivae, no scleral icterus ENT: MMM NECK: trachea midline, no lymphadenopathy, normal thyroid RESPIRATORY: clear to auscultation bilaterally, no crackles, rales or wheezes, normal respiratory effort CARDIOVASCULAR: regular rate and rhythm, S1 and 2 heard without murmurs, gallops or rubs, no JVD, no peripheral edema GASTROINTESTINAL: soft, nontender, nondistended MUSCULOSKELETAL: strength 5/5 throughout, head is normocephalic and atraumatic SKIN: warm and dry NEUROLOGIC: No facial palsy, no dysarthria. CN 2-12 grossly intact, no sensory deficit, normal cognition, no gross focal deficits. PSYCHIATRIC: alert cooperative and oriented to person, place and time. Results & Data Vital Signs (Past 12 Hours) Vital Signs Temp Pulse Pulse Resp BP Pulse Ox 06/07/19 13:42 87 18 90 06/07/19 11:27 37.5 C 89 17 137/64 90 06/07/19 07:55 36.9 C 100 H 20 152/79 H 90 06/07/19 07:25 97 H 06/07/19 06:48 91 H 18 90 Laboratory Results Short CBC 06/06/19 06/07/19 06/07/19 Range/Units 20:01 01:02 05:48 WBC 16.22 H 13.79 H 12.71 H (4.8-10.8) K/uL Hgb 12.2 11.4 L 11.3 L (12.0-16.0) g/dL Hct 38.6 36.2 L 36.0 L (37-47) % Plt Count 434 H 391 360 (130-400) K/uL BMP 06/06/19 06/07/19 06/07/19 20:01 01:02 05:48 Sodium 129 L 131 L 132 L Potassium 4.6 3.8 D 3.6 Chloride 97 L 98 98 Carbon Dioxide 32 30 28 BUN 12 9 9 Creatinine 0.67 0.51 L 0.52 L Glucose 139 H 127 H 143 H Calcium 9.1 8.7 8.7 Cardiac Enzymes 06/06/19 Range/Units 20:01 Total Creatine Kinase 323 H (26-192) U/L Troponin I < 0.015 (0-0.045) ng/ml Liver Function 06/06/19 Range/Units 20:01 Total Bilirubin 0.4 (0.2-1) mg/dl AST 12 L (15-37) U/L ALT 17 (12-78) U/L Alkaline Phosphatase 183 H (45-117) U/L Albumin 2.7 L (3.4-5.0) gm/dl Urine 06/06/19 Range/Units 19:52 Urine Color Yellow Urine Appearance Clear (Clear) Urine pH 7.5 (4.5-7.5) Ur Specific [place] 1.017 (1.000-1.030) Urine Protein Negative (Negative) Urine Glucose (UA) Negative (Negative) Medications Administered Current Inpatient Medications Acetaminophen (Tylenol) 650 mg PO Q6H PRN PRN Reason: Fever Or Pain Stop: 07/07/19 00:39 Albuterol (Ventolin Hfa) 2 puffs INH Q4H PRN PRN Reason: SOB/WHEEZING Stop: 07/07/19 01:02 Amlodipine Besylate (Norvasc) 5 mg PO QAM [facility] Stop: 07/07/19 08:59 Last Admin: 06/07/19 08:33 Dose: 5 mg Documented by: Aspirin (Ecotrin Ectab) 81 mg PO QAM [facility] Stop: 07/07/19 08:59 Last Admin: 06/07/19 08:32 Dose: 81 mg Documented by: Cetirizine HCl (Zyrtec) 10 mg PO DAILY [facility] Stop: 07/07/19 08:59 Last Admin: 06/07/19 08:32 Dose: 10 mg Documented by: Dextrose (Dextrose 50%) 25 - 50 ml IV UD PRN; Protocol PRN Reason: Hypoglycemia Protocol Stop: 07/07/19 00:59 Fluticasone Propionate (Flonase) 2 sprays NA DAILY [facility] Stop: 07/07/19 08:59 Last Admin: 06/07/19 08:30 Dose: 2 sprays Documented by: Glucagon (Glucagen) 1 mg SQ UD PRN; Protocol PRN Reason: Hypoglycemia Protocol Stop: 07/07/19 00:59 Glucose (Glucose 40%) 15 - 30 gm PO UD PRN; Protocol PRN Reason: Hypoglycemia Protocol Stop: 07/07/19 00:59 Glucose (Dex4 Glucose) 4 - 8 tabs PO UD PRN; Protocol PRN Reason: Hypoglycemia Protocol Stop: 07/07/19 00:59 Heparin Sodium (Porcine) (Heparin Sodium (Porcine)) 5,000 units SQ Q12 IVON Stop: 07/07/19 08:59 Last Admin: 06/07/19 08:33 Dose: 5,000 units Documented by: Sodium Chloride (Nss 1000ml) 1,000 mls @ 60 mls/hr IV .[id number] [facility] Stop: 07/07/19 00:39 Last Infusion: 06/07/19 10:21 Dose: Infused Documented by: Piperacillin Sod/Tazobactam (Sod 3.375 gm/ Dextrose) 115 mls @ 28.75 mls/hr IV Q8H [facility]; Protocol Stop: 06/14/19 05:59 Last Admin: 06/07/19 14:39 Dose: 28.8 mls/hr Documented by: Doxycycline Hyclate 100 mg/ (Dextrose) 110 mls @ 55 mls/hr IV Q12H [facility]; Protocol Stop: 06/14/19 13:59 Last Admin: 06/07/19 14:39 Dose: 55 mls/hr Documented by: Insulin Aspart (Novolog Flexpen) 0 units SC ACHS [facility] Stop: 07/07/19 00:59 Last Admin: 06/07/19 12:31 Dose: 6 units Documented by: Insulin Detemir (Levemir Flextouch) 20 units SC DAILY [facility] Stop: 07/07/19 08:59 Last Admin: 06/07/19 08:30 Dose: 20 units Documented by: Ipratropium [place] (Atrovent 0.02% 0.5mg/2.5ml) 0.5 mg INH Q6R [facility] Stop: 07/07/19 00:59 Last Admin: 06/07/19 13:39 Dose: 0.5 mg Documented by: Levalbuterol HCl (Xopenex 1.25mg/0.5ml [place]) 1.25 mg INH Q6R [facility] Stop: 07/07/19 00:59 Last Admin: 06/07/19 13:39 Dose: 1.25 mg Documented by: Losartan Potassium (Cozaar) 50 mg PO DAILY [facility] Stop: 07/07/19 08:59 Last Admin: 06/07/19 08:32 Dose: 50 mg Documented by: Miscellaneous (Carbohydrates For Hypoglycemia) 15 - 30 gm PO UD PRN PRN Reason: Hypoglycemia Treatment Stop: 07/07/19 00:59 Miscellaneous Information () 1 ea N/A UD PRN PRN Reason: Consult Stop: 07/07/19 00:59 Miscellaneous Information (Consult Glycemic Management Pharmacy) 1 ea N/A UD P RN PRN Reason: Consult Stop: 07/07/19 01:01 Miscellaneous Information (Consult) 1 ea N/A UD PRN PRN Reason: Consult Stop: 07/07/19 01:01 Mupirocin (Bactroban 2%) 1 appln INTNAS BID IVON Stop: 06/11/19 21:01 Last Admin: 06/07/19 12:32 Dose: 1 appln Documented by: Polyethylene Glycol (Miralax Powder Packet) 17 gm PO DAILY [facility] Stop: 07/07/19 08:59 Last Admin: 06/07/19 08:38 Dose: 17 gm Documented by: Propranolol HCl (Inderal La) 120 mg PO DAILY [facility] Stop: 07/07/19 08:59 Last Admin: 06/07/19 08:32 Dose: 120 mg Documented by: Sennosides (Senokot) 8.6 mg PO DAILY IVON Stop: 07/07/19 08:59 Last Admin: 06/07/19 08:32 Dose: 8.6 mg Documented by: Tramadol HCl (Ultram) 50 mg PO Q4H PRN PRN Reason: Pain - Moderate/Severe Stop: 07/07/19 00:39 (1) Altered mental status Altered mental status type: unspecified Qualified Code(s): R41.82 - Altered mental status, unspecified (2) Pneumonia Laterality: unspecified laterality Lung location: unspecified part of lung Pneumonia type: due to unspecified organism Qualified Code(s): J18.9 - Pneumonia, unspecified organism
[2019-06-07] MEDS: SODIUM CHLOR 7% 4 ML NEB NEB SCH (19:26)
[2019-06-07] MEDS: guaiFENesin 600 MG TABCR PO SCH (21:48)
--- NOTE | 2019-06-07 21:49 | Electrocardiogram Report ---
Test Reason : Blood Pressure : / mmHG Vent. Rate : 087 BPM Atrial Rate : 087 BPM P-R Int : 156 ms QRS Dur : 076 ms QT Int : 370 ms P-R-T Axes : 066 011 063 degrees QTc Int : 445 ms Normal sinus rhythm Low voltage QRS Borderline ECG When compared with ECG of 20-MAR-2019 14:54, Premature ventricular complexes are no longer Present Confirmed by Omid Parson ([id number]) on 06/07/2019 9:49:14 PM Referred By: REFERRED SELF Confirmed By:Omid Parson
[2019-06-08] MEDS: IPRATROPIUM BROMIDE NEB SOLN 0.02% 2.5 ML VIAL INH SCH ×4 (01:04→19:39)
[2019-06-08] MEDS: LEVALBUTEROL 1.25MG/0.5ML NEB INH SCH ×4 (01:04→19:39)
[2019-06-08] MEDS: DOXYCYCLINE HYCLATE 100 MG in DEXTROSE 5% 100 ML IV SCH ×2 (02:34→14:31)
[2019-06-08] MEDS: PIPERACILLIN/TAZOBACTAM 3.375 GM in DEXTROSE 5% 100 ML IV SCH ×3 (05:34→22:06)
[2019-06-08 05:55] LABS: Hematocrit (blood only) 36.9 % (37-47); Hemoglobin 11.8 g/dL (12.0-16.0); Mean Corpuscular Hemoglobin 23.4 pg (25-34); Mean Corpuscular Volume 73.1 fL (80-100); Mean Platelet Volume 8.4 fL (7.4-10.4); Platelet Count 322 K/uL (130-400); RDW Coefficient of Variation 15.7 % (11.5-14.5); RDW Standard Deviation 41.5 fL (36.4-46.3); Red Blood Count 5.05 M/uL (4.2-5.4); White Blood Count 13.17 K/uL (4.8-10.8)
[2019-06-08 06:33] LABS: BUN Creatinine Ratio 13.5 (10-20); Calcium 8.7 mg/dl (8.5-10.1); Creatinine Clr Calc Pharmacy 58.8 ml/min; Est GFR (African American) 101.8; Est GFR (Non-African American) 87.8; Potassium 3.3 mmol/L (3.5-5.1)
[2019-06-08 06:34] LABS: Estimated Average Glucose 180 mg/dl; Hemoglobin A1C 7.9 % (4.5-5.6)
[2019-06-08] MEDS: SODIUM CHLOR 7% 4 ML NEB NEB SCH ×2 (07:10→19:40)
[2019-06-08] MEDS ORDERED: INSULIN DETEMIR FLEXPEN/FLEX TOUCH 100 UNITS/ML 3ML SC SCH (09:00)
[2019-06-08] MEDS: PROPRANOLOL HCL 60 MG LA CAP PO SCH (09:01)
[2019-06-08] MEDS: LOSARTAN POTASSIUM 50 MG TAB PO SCH (09:01)
[2019-06-08] MEDS: MUPIROCIN 2% OINT 22 GM TUBE INTNAS SCH ×2 (09:01→22:02)
[2019-06-08] MEDS: CETIRIZINE HCL 10 MG TABLET PO SCH (09:01)
[2019-06-08] MEDS: SENNA 8.6 MG TAB PO SCH (09:01)
[2019-06-08] MEDS: AMLODIPINE BESYLATE 5 MG TAB PO SCH (09:01)
[2019-06-08] MEDS: ASPIRIN 81 MG ECTAB PO SCH (09:01)
[2019-06-08] MEDS: FLUTICASONE PROPIONATE NA SPR 16 GM BTL SCH (09:02)
[2019-06-08] MEDS: guaiFENesin 600 MG TABCR PO SCH ×2 (09:02→22:03)
[2019-06-08] MEDS: POLYETHYLENE (MIRALAX) 17 GM PACK PO SCH (09:02)
[2019-06-08] MEDS: HEPARIN SOD 5,000 UNIT/0.5 ML VIAL SQ SCH ×2 (09:03→22:02)
[2019-06-08] MEDS: INSULIN ASPART 100 UNITS/ML 3 ML PEN SC SCH ×4 (09:03→22:03)
--- NOTE | 2019-06-08 11:49 | Pulmonology Progress Note ---
Date of Service June 08, 2019 Assessment & Plan (1) Mycobacterium avium complex: Patient underwent bronchoscopy March [address] Najera BAL was negative for malignancy Cultures for AFB were sent out and revealed MAC At that time, patient had no symptoms and was very active with travel and it was felt due to age that she would not tolerate triple antibiotic therapy Patient now has recurrent and more frequent upper respiratory symptoms most likely due to her chronic MAC It is unknown whether the MAC has colonized or not but treatment should not star t acutely in the inpatient setting Would recommend follow-up in 3 months and have gisell discussion with patient and family about benefit versus risk of triple antibiotic therapy. (2) Pneumonia: Patient noted to have reports of aspiration back to 2014 Patient continues on Zosyn and doxycycline. Sputum sample is been requested but patient is unable to expectorate Continue to recommend swallow study Negative for pertussis Negative for influenza a and B Nasal swab positive for MRSA From a respiratory standpoint the patient has improved but continues with a wet, nonproductive cough We will continue with empiric treatment for pneumonia No current recommendation for bronchoscopy or other biopsying Continue to encourage sputum for AFB and culture Continue supportive care Laterality: bilateral Lung location: unspecified part of lung Pneumonia type: due to unspecified organism Qualified Code(s): J18.9 - Pneumonia, unspecified organism (3) Abnormal CT of the chest: Patient with waxing and waning groundglass opacities consistent with MAC May benefit from repeat biopsy and sensitivities when back at baseline Continue surveillance and active treatment of presumed aspiration pneumonia Long discussion with family about ongoing care. 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 Please refer to Dr. Chandler's addendum and corrections for further recommendations. Subjective Attending: Dr. Chandler Patient seen and examined at bedside today. She is awake and alert. She is oriented to person place and time. She continues with an occasional wet sounding cough but continues to have no sputum production. Patient denies any fever or chills. She states that she slept fairly well last night. She is asking for breakfast. She has no acute complaints. Review of Systems Review of Systems: All systems reviewed & are unremarkable except as noted in HPI & below Physical Exam Physical Exam: GENERAL : No acute distress. Pleasant EYES: No icterus, gaze conjugate NOSE: No evidence of epistaxis MOUTH: No lesions or candidiasis. Tongue is midline. No evidence of facial droop NECK: Supple. No stridor or transmitted wheezes LUNGS: Fine rales at the bases. No bronchospasm. No rhonchi. HEART: Regular, rate controlled ABDOMEN: Soft, NT, ND, BS Present EXTREMITIES: No LE edema, pedal pulses intact and equal bilaterally NEURO: A&O to person place and time. She is aware that she is in [facility] but is not able to recollect when she was admitted or why she is here. When asked for the day she believes is Friday. When I stated that it was Friday she said "that makes sense". She is able to follow all commands as directed. She has no slurred speech. Results & Data Vital Signs (Past 12 Hours) Vital Signs Temp Pulse Pulse Resp BP Pulse Ox 06/08/19 10:00 66 06/08/19 07:16 37.3 C 85 16 157/71 H 93 06/08/19 07:11 96 H 18 93 06/08/19 04:10 37.8 C H 87 16 162/68 H 91 06/08/19 01:20 88 06/08/19 01:05 95 H 18 91 06/08/19 00:33 37.7 C H 95 H 16 150/53 H 92 Laboratory Results 06/08/19 05:45 06/08/19 05:45 Diagnostic Findings No further imaging in the last 24 hours PG Care Time/CCT Total # of Minutes Spent Total Time Spent with Patient: Total time spent is greater than 50% in coordination of care (as documented) at patient's floor/unit and/or counseling patient: 20 minutes
--- NOTE | 2019-06-08 15:23 | Pharmacy Report ---
Pharmacy Glycemic Short Note 2 - Date of Service June 08, 2019 - Glycemic Short BSG Results (Last 24 hours): 06/07/19 06/07/19 06/08/19 16:28 20:16 05:45 Glucose 149 H POC Glucose 131 H 117 H 06/08/19 06/08/19 06/08/19 07:37 11:52 14:39 Glucose POC Glucose 179 H 230 H 244 H OUTPATIENT ANTIDIABETIC REGIMEN: * Levemir 30 units SQ QAM * Victoza 1.8 mg SQ QAM ASSESSMENT: * Patient received total 33 units of insulin yesterday; 20 units basal and 13 units bolus. * Fasting BSG today was elevated. Basal Levemir was increased to 25 units this AM but it is not at her home dose. Will plan to increase dose further if fasting still elevated tomorrow. * Lunch BSG also elevated. Novolog CF and CR were tightened. PLAN FOR INPATIENT GLYCEMIC CONTROL: * Hold outpatient Victoza * Basal insulin: increased * Lantus 25 units SQ QAM * Bolus insulin: tightened * NovoLog per scale ACHS or Q6hrs while NPO * Goal Range: Low 120 mg/dL - High 160 mg/dL * Correction Factor: 20 mg/dL/unit * Nutritional / Prandial insulin per carb ratio of 1 unit per 8 grams CHO consumed PLAN FOR DISCHARGE: * HbA1c = 7.9% * Goal A1c for this patient given her age and co-morbidities would be <8%. Would resume her home anti-diabetic meds: Levemir and Victoza upon discharge as long as patient is not reporting hypoglycemia at home.
--- NOTE | 2019-06-08 16:24 | Hospitalist Progress Note ---
Date of Service June 08, 2019 Assessment & Plan (1) Pneumonia: Atypical pneumonia vs MRSA pneumonia vs FATOUMATA flare vs acute sinusitis. Improved on current antibiotics. No gisell infiltrate, however, she does have bronchiectasis that is known with a h/o Pseudomonas in the past. Sputum culture pending to narrow therapy or would defer to pulmonary recommendations. (2) Traction bronchiectasis: Plan as above and hypertonic saline neb ordered with mucinex. (3) Mycobacterium avium complex: Pulm recommends repeat evaluation in the next couple of months to have the discussion of treatment again as outpatient. (4) Diabetes: At goal on basal bolus insulin while hospitalized. (5) H/O: CVA (cerebrovascular accident): residual left sided weakness not noted on exam today. (6) MRSA carrier: Bactroban started intranasally. No open wound. As she has improved clinically on current abx, Vanc was considered but thought unnecessary. (7) Hyponatremia: improved. (8) DVT prophylaxis: Heparin DNR Dispo-uncertain at this time. Mary Maldonado DO [facility] Hospitalist Miguel Davis feels improved again today Still with a dry cough, min sputum production tolerating PO Tm 100.4 overnight. Denies chest pain or shortness of breath. Review of Systems Review of Systems: All systems reviewed & are unremarkable except as noted in HPI & below Physical Exam Physical Exam: CONSTITUTIONAL: WNWD, vitals as above, generally well- appearing EYES: normal conjunctivae, no scleral icterus ENT: MMM NECK: trachea midline, no lymphadenopathy, normal thyroid RESPIRATORY: clear to auscultation bilaterally, no crackles, rales or wheezes, normal respiratory effort CARDIOVASCULAR: regular rate and rhythm, S1 and 2 heard without murmurs, gallops or rubs, no JVD, no peripheral edema GASTROINTESTINAL: soft, nontender, nondistended MUSCULOSKELETAL: strength 5/5 throughout, head is normocephalic and atraumatic SKIN: warm and dry NEUROLOGIC: No facial palsy, no dysarthria. CN 2-12 grossly intact, no sensory deficit, normal cognition, no gross focal deficits. PSYCHIATRIC: alert cooperative and oriented to person, place and time. Results & Data Vital Signs (Past 12 Hours) Vital Signs Temp Pulse Pulse Resp BP BP Pulse Ox 06/08/19 15:08 77 06/08/19 15:00 36.9 C 78 17 144/76 H 95 06/08/19 13:56 83 16 96 06/08/19 10:00 66 06/08/19 07:16 37.3 C 85 16 157/71 H 93 06/08/19 07:11 96 H 18 93 Laboratory Results Short CBC 06/08/19 Range/Units 05:45 WBC 13.17 H (4.8-10.8) K/uL Hgb 11.8 L (12.0-16.0) g/dL Hct 36.9 L (37-47) % Plt Count 322 (130-400) K/uL BMP 06/08/19 05:45 Sodium 134 L Potassium 3.3 L Chloride 101 Carbon Dioxide 26 BUN 7 Creatinine 0.53 L Glucose 149 H Calcium 8.7 Medications Administered Current Inpatient Medications Acetaminophen (Tylenol) 650 mg PO Q6H PRN PRN Reason: Fever Or Pain Stop: 07/07/19 00:39 Albuterol (Ventolin Hfa) 2 puffs INH Q4H PRN PRN Reason: SOB/WHEEZING Stop: 07/07/19 01:02 Amlodipine Besylate (Norvasc) 5 mg PO QAM [facility] Stop: 07/07/19 08:59 Last Admin: 06/08/19 09:01 Dose: 5 mg Documented by: Aspirin (Ecotrin Ectab) 81 mg PO QAM [facility] Stop: 07/07/19 08:59 Last Admin: 06/08/19 09:01 Dose: 81 mg Documented by: Cetirizine HCl (Zyrtec) 10 mg PO DAILY [facility] Stop: 07/07/19 08:59 Last Admin: 06/08/19 09:01 Dose: 10 mg Documented by: Dextrose (Dextrose 50%) 25 - 50 ml IV UD PRN; Protocol PRN Reason: Hypoglycemia Protocol Stop: 07/07/19 00:59 Fluticasone Propionate (Flonase) 2 sprays NA DAILY [facility] Stop: 07/07/19 08:59 Last Admin: 06/08/19 09:02 Dose: 2 sprays Documented by: Glucagon (Glucagen) 1 mg SQ UD PRN; Protocol PRN Reason: Hypoglycemia Protocol Stop: 07/07/19 00:59 Glucose (Glucose 40%) 15 - 30 gm PO UD PRN; Protocol PRN Reason: Hypoglycemia Protocol Stop: 07/07/19 00:59 Glucose (Dex4 Glucose) 4 - 8 tabs PO UD PRN; Protocol PRN Reason: Hypoglycemia Protocol Stop: 07/07/19 00:59 Guaifenesin (Mucinex) 600 mg PO Q12 [facility] Stop: 07/07/19 20:59 Last Admin: 06/08/19 09:02 Dose: 600 mg Documented by: Heparin Sodium (Porcine) (Heparin Sodium (Porcine)) 5,000 units SQ Q12 IVON Stop: 07/07/19 08:59 Last Admin: 06/08/19 09:03 Dose: 5,000 units Documented by: Piperacillin Sod/Tazobactam (Sod 3.375 gm/ Dextrose) 115 mls @ 28.75 mls/hr IV Q8H [facility]; Protocol Stop: 06/14/19 05:59 Last Admin: 06/08/19 14:31 Dose: 28.8 mls/hr Documented by: Doxycycline Hyclate 100 mg/ (Dextrose) 110 mls @ 55 mls/hr IV Q12H [facility]; Protocol Stop: 06/14/19 13:59 Last Admin: 06/08/19 14:31 Dose: 55 mls/hr Documented by: Insulin Aspart (Novolog Flexpen) 0 units SC ACHS [facility] Stop: 07/07/19 00:59 Last Admin: 06/08/19 14:58 Dose: 5 units Documented by: Insulin Detemir (Levemir Flextouch) 25 units SC DAILY [facility] Stop: 07/08/19 08:59 Last Admin: 06/08/19 09:03 Dose: 25 units Documented by: Ipratropium [place] (Atrovent 0.02% 0.5mg/2.5ml) 0.5 mg INH Q6R [facility] Stop: 07/07/19 00:59 Last Admin: 06/08/19 13:50 Dose: 0.5 mg Documented by: Levalbuterol HCl (Xopenex 1.25mg/0.5ml Neb) 1.25 mg INH Q6R [facility] Stop: 07/07/19 00:59 Last Admin: 06/08/19 13:51 Dose: 1.25 mg Documented by: Losartan Potassium (Cozaar) 50 mg PO DAILY [facility] Stop: 07/07/19 08:59 Last Admin: 06/08/19 09:01 Dose: 50 mg Documented by: Miscellaneous (Carbohydrates For Hypoglycemia) 15 - 30 gm PO UD PRN PRN Reason: Hypoglycemia Treatment Stop: 07/07/19 00:59 Miscellaneous Information () 1 ea N/A UD PRN PRN Reason: Consult Stop: 07/07/19 00:59 Miscellaneous Information (Consult Glycemic Management Pharmacy) 1 ea N/A UD PRN PRN Reason: Consult Stop: 07/07/19 01:01 Miscellaneous Information (Consult) 1 ea N/A UD PRN PRN Reason: Consult Stop: 07/07/19 01:01 Mupirocin (Bactroban 2%) 1 appln INTNAS BID IVON Stop: 06/11/19 21:01 Last Admin: 06/08/19 09:01 Dose: 1 appln Documented by: Polyethylene Glycol (Miralax Powder Packet) 17 gm PO DAILY [facility] Stop: 07/07/19 08:59 Last Admin: 06/08/19 09:02 Dose: 17 gm Documented by: Propranolol HCl (Inderal La) 120 mg PO DAILY [facility] Stop: 07/07/19 08:59 Last Admin: 06/08/19 09:01 Dose: 120 mg Documented by: Sennosides (Senokot) 8.6 mg PO DAILY [facility] Stop: 07/07/19 08:59 Last Admin: 06/08/19 09:01 Dose: 8.6 mg Documented by: Sodium Chloride (Sodium Chlor 7% Neb Solution) 4 ml NEB BIDR [facility] Stop: 07/07/19 18:59 Last Admin: 06/08/19 07:10 Dose: 4 ml Documented by: Tramadol HCl (Ultram) 50 mg PO Q4H PRN PRN Reason: Pain - Moderate/Severe Stop: 07/07/19 00:39 (1) Pneumonia Laterality: bilateral Lung location: unspecified part of lung Pneumonia type: due to unspecified organism Qualified Code(s): J18.9 - Pneumonia, unspecified organism
[2019-06-09] MEDS: IPRATROPIUM BROMIDE NEB SOLN 0.02% 2.5 ML VIAL INH SCH ×4 (00:38→19:04)
[2019-06-09] MEDS: LEVALBUTEROL 1.25MG/0.5ML NEB INH SCH ×4 (00:39→19:04)
[2019-06-09] MEDS: DOXYCYCLINE HYCLATE 100 MG in DEXTROSE 5% 100 ML IV SCH ×2 (02:17→14:00)
[2019-06-09] MEDS: PIPERACILLIN/TAZOBACTAM 3.375 GM in DEXTROSE 5% 100 ML IV SCH ×3 (05:51→21:33)
[2019-06-09 06:29] LABS: Hematocrit (blood only) 35.1 % (37-47); Hemoglobin 11.4 g/dL (12.0-16.0); Mean Corpuscular Hemoglobin 23.6 pg (25-34); Mean Corpuscular Hgb Conc 32.5 g/dL (32-36); Mean Corpuscular Volume 72.5 fL (80-100); Mean Platelet Volume 8.8 fL (7.4-10.4); Platelet Count 407 K/uL (130-400); RDW Coefficient of Variation 15.7 % (11.5-14.5); RDW Standard Deviation 41.9 fL (36.4-46.3); Red Blood Count 4.84 M/uL (4.2-5.4); White Blood Count 13.42 K/uL (4.8-10.8)
[2019-06-09 06:57] LABS: BUN Creatinine Ratio 18.9 (10-20); Calcium 8.7 mg/dl (8.5-10.1); Creatinine Clr Calc Pharmacy 56.5 ml/min; Est GFR (African American) 101.1; Est GFR (Non-African American) 87.3; Potassium 3.4 mmol/L (3.5-5.1)
[2019-06-09] MEDS: SODIUM CHLOR 7% 4 ML NEB NEB SCH ×2 (07:09→19:04)
[2019-06-09] MEDS: POLYETHYLENE (MIRALAX) 17 GM PACK PO SCH (07:28)
[2019-06-09] MEDS: SENNA 8.6 MG TAB PO SCH (07:29)
[2019-06-09] MEDS: LOSARTAN POTASSIUM 50 MG TAB PO SCH (08:25)
[2019-06-09] MEDS: CETIRIZINE HCL 10 MG TABLET PO SCH (08:25)
[2019-06-09] MEDS: PROPRANOLOL HCL 60 MG LA CAP PO SCH (08:25)
[2019-06-09] MEDS: AMLODIPINE BESYLATE 5 MG TAB PO SCH (08:25)
[2019-06-09] MEDS: guaiFENesin 600 MG TABCR PO SCH ×2 (08:25→21:34)
[2019-06-09] MEDS: ASPIRIN 81 MG ECTAB PO SCH (08:25)
[2019-06-09] MEDS: MUPIROCIN 2% OINT 22 GM TUBE INTNAS SCH ×2 (08:25→21:35)
[2019-06-09] MEDS: INSULIN ASPART 100 UNITS/ML 3 ML PEN SC SCH ×4 (08:26→21:29)
[2019-06-09] MEDS: FLUTICASONE PROPIONATE NA SPR 16 GM BTL SCH (08:27)
[2019-06-09] MEDS: HEPARIN SOD 5,000 UNIT/0.5 ML VIAL SQ SCH ×2 (08:27→21:34)
[2019-06-09] MEDS ORDERED: INSULIN DETEMIR FLEXPEN/FLEX TOUCH 100 UNITS/ML 3ML SC SCH (09:00)
--- NOTE | 2019-06-09 12:29 | Pulmonology Progress Note ---
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 Najera BAL was negative for malignancy Cultures for AFB were sent out and revealed MAC At that time, patient had no symptoms and was very active with travel and it was felt due to age that she would not tolerate triple antibiotic therapy Patient now has recurrent and more frequent upper respiratory symptoms most likely due to her chronic MAC It is unknown whether the MAC has colonized or not but treatment should not star t acutely in the inpatient setting Would recommend follow-up in 3 months and have gisell discussion with patient and family about benefit versus risk of triple antibiotic therapy. (2) Pneumonia: Patient noted to have reports of aspiration back to 2014 Patient continues on Zosyn and doxycycline. Continue to recommend swallow study Negative for pertussis Negative for influenza a and B Nasal swab positive for MRSA Sputum culture positive for staph aureus with sensitivities pending From a respiratory standpoint the patient has improved but continues with a wet, nonproductive cough We will continue with empiric treatment for pneumonia covering staff aureus * Await sensitivities to rule out MRSA pneumonia No current recommendation for bronchoscopy or other biopsying AFB smear from sputum is still pending Continue supportive care Laterality: bilateral Lung location: unspecified part of lung Pneumonia type: due to unspecified organism Qualified Code(s): J18.9 - Pneumonia, unspecified organism (3) Abnormal CT of the chest: Patient with waxing and waning groundglass opacities consistent with MAC May benefit from repeat biopsy and sensitivities when back at baseline Continue surveillance and active treatment of presumed aspiration pneumonia Long discussion with family about ongoing care. 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 We will continue to follow this patient Please refer to Dr. Chandler's addendum and corrections for further recommendations. Supervising Physician Co-Signing Physician Notes Patient seen and examined. Films were independently reviewed. Await speciation and sensitivity of staph growing from sputum. May represent a pathogen for an exacerbation of her bronchiectasis. Final antibiotic decisions will be based on results of culture data. Overall clinically improved and may be able to be discharged within the next day or 2 with outpatient follow-up with Jorge Luis jara. Subjective Attending: Dr. Chandler Patient seen and examined at bedside. Ambulating well around the room with Occupational Therapy. Patient denies any chest pain or tightness. No fever. She does continue with a nonproductive cough. Patient did produce enough sputum that we were able send for culture which is now growing staph aureus. Se nsitivities are pending. Patient did demonstrate ability to do incentive spirometry as well as flutter valve at bedside. This produced cough but no sputum during my visit. Patient has no other acute complaints. She is questioning discharge plan. Indicated that she would be here a couple more days until we have sensitivities and make sure they were treating her pneumonia appropriately. Review of Systems Review of Systems: All systems reviewed & are unremarkable except as noted in HPI & below Physical Exam Physical Exam: GENERAL : No acute distress. Sitting in bedside chair EYES: No icterus, gaze conjugate NOSE: No evidence of epistaxis MOUTH: No lesions or candidiasis. Mucosa moist NECK: Supple LUNGS: Fine bibasilar crackles. No bronchospasm or rhonchi appreciated. HEART: Regular, rate controlled ABDOMEN: Soft, NT, ND, BS Present EXTREMITIES: No LE edema, pedal pulses intact and equal bilaterally. NEURO: A&OX3. Results & Data Vital Signs (Past 12 Hours) Vital Signs Temp Pulse Pulse Resp BP Pulse Ox 06/09/19 11:28 36.6 C 76 20 120/68 96 06/09/19 10:00 68 06/09/19 07:36 37.6 C H 87 20 145/80 H 100 06/09/19 07:11 82 16 92 06/09/19 03:25 36.9 C 82 20 160/72 H 94 06/09/19 00:42 81 06/09/19 00:39 89 16 92 Laboratory Results 06/09/19 05:44 06/09/19 05:[address] [place] [address] / Director: Pravin Sesay M.D. Clinical Laboratory Report Name: JOSE CRUZ THOMASON Acct: [id number] Status: ADM IN : 1935 [facility] Date: 06/06/19 Age: 84 Sex: F Dis Date: Loc: [address]/Bed: [facility] Spec: [id number] Collected: 06/08/19 Received: 06/08/19-[address]: Sanjiv Chandler MD Copy To: Edu Navarro MD Source: Sputum, Expectorated OV Order: Ordered: Sputum Cult/Smr Procedure Result Verified Site Gram Stain Final 06/08/19 Gram Stain Result Rare Epithelial Cells Many Polys Rare Gram Positive Cocci Rare Gram Positive Bacilli Rare Gram Negative Bacilli Sputum Culture Preliminary 06/09/19-1143 Organism 1 Staphylococcus aureus Quantity Many Sens Sensitivities to Follow Name: JOSE CRUZ THOMASON : 1935 PAGE 1 Printed: 06/09/19 1221 END OF REPORT Diagnostic Findings No new imaging since 06/07/2019 PG Care Time/CCT Total # of Minutes Spent Total Time Spent with Patient: Total time spent is greater than 50% in coordination of care (as documented) at patient's floor/unit and/or counseling patient: 30 minutes
[2019-06-09] MEDS ORDERED: ONDANSETRON INJ 2 MG/ML 2 ML VIAL IV PRN (13:54)
[2019-06-09] MEDS ORDERED: ONDANSETRON INJ 2 MG/ML 2 ML VIAL ONE (13:56)
--- NOTE | 2019-06-09 15:19 | Pharmacy Report ---
Pharmacy Glycemic Short Note 2 - Date of Service June 09, 2019 - Glycemic Short BSG Results (Last 24 hours): 06/08/19 06/08/19 06/09/19 16:19 20:07 05:44 Glucose 149 H POC Glucose 175 H 140 H 06/09/19 06/09/19 07:51 11:45 Glucose POC Glucose 179 H 262 H OUTPATIENT ANTIDIABETIC REGIMEN: * Levemir 30 units SQ QAM * Victoza 1.8 mg SQ QAM ASSESSMENT: * Patient received total 44 units of insulin yesterday; 25 units basal and 19 units bolus. * Fasting BSG today was elevated again. Basal Levemir was increased to 30 units this AM which is her home dose. * Lunch BSG was also high. Novolog CF and CR were tightened further. PLAN FOR INPATIENT GLYCEMIC CONTROL: * Hold outpatient Victoza * Basal insulin: increased * Lantus 30 units SQ QAM * Bolus insulin: tightened * NovoLog per scale ACHS or Q6hrs while NPO * Goal Range: Low 120 mg/dL - High 160 mg/dL * Correction Factor: 20 mg/dL/unit * Nutritional / Prandial insulin per carb ratio of 1 unit per 7 grams CHO consumed PLAN FOR DISCHARGE: * HbA1c = 7.9% * Goal A1c for this patient given her age and co-morbidities would be <8%. Would resume her home anti-diabetic meds: Levemir and Victoza upon discharge as long as patient is not reporting hypoglycemia at home.
--- NOTE | 2019-06-09 15:29 | Hospitalist Progress Note ---
Date of Service June 09, 2019 Assessment & Plan (1) Pneumonia: Atypical pneumonia vs MRSA pneumonia vs FATOUMATA flare vs acute sinusitis. Symptom has improved, on IV Zosyn, and doxycycline Pulmonology following appreciate input 3 status improved to approximate baseline (2) Traction bronchiectasis: Continue pulmonary recommendation (3) Mycobacterium avium complex: Per pulmonology repeat evaluation in the next couple of months to have the discussion of treatment again as outpatient. (4) Diabetes: Episode of hyperglycemia noted, Not on any prednisone On insulin sliding scale and basal Lantus Pharmacy following for glycemic management (5) H/O: CVA (cerebrovascular accident): Continue on aspirin (6) MRSA carrier: Bactroban started intranasally. No open wound. (7) Hyponatremia: improved. (8) DVT prophylaxis: Heparin DNR Disposition: Continue PT OT Will need rehab /SNF Referral made to [facility] Subjective Continues to have cough, dry nonproductive Was nauseous earlier have had episode of emesis No complaint of abdominal pain or discomfort No fever or chills No diarrhea or loose bowel movements Review of Systems Review of Systems: All systems reviewed & are unremarkable except as noted in HPI & below Respiratory: + cough; no dyspnea Gastrointestinal: + nausea and + vomiting Physical Exam Constitutional: WD/WN, vitals as above + thin; no acute distress Very frail thin elderly female no apparent distress Eyes: PERRL, conjunctivae normal, anicteric sclerae ENMT: external ear and nose normal, oropharynx normal Neck: trachea midline, no thyromegaly Respiratory: normal respiratory effort and + cough Auscultation: + crackles and + wheezes Cardiovascular: RRR, no murmur, no edema Gastrointestinal (Abdomen): normal bowel sounds, soft, nontender, no hepatosplenomegaly Skin: no rashes, warm and dry Neurologic: PERRL, EOMI, accommodation nl, no face palsy, no dysarthria Psychiatric: A+Ox3, euthymic affect Results & Data Vital Signs (Past 12 Hours) Vital Signs Temp Pulse Pulse Resp BP Pulse Ox 06/09/19 11:28 36.6 C 76 20 120/68 96 06/09/19 10:00 68 06/09/19 07:36 37.6 C H 87 20 145/80 H 100 06/09/19 07:11 82 16 92 (1) Pneumonia Laterality: bilateral Lung location: unspecified part of lung Pneumonia type: due to unspecified organism Qualified Code(s): J18.9 - Pneumonia, unspecified organism
[2019-06-10] MEDS: LEVALBUTEROL 1.25MG/0.5ML NEB INH SCH ×4 (01:11→20:01)
[2019-06-10] MEDS: IPRATROPIUM BROMIDE NEB SOLN 0.02% 2.5 ML VIAL INH SCH ×4 (01:11→20:02)
[2019-06-10] MEDS: DOXYCYCLINE HYCLATE 100 MG in DEXTROSE 5% 100 ML IV SCH ×2 (01:47→13:41)
[2019-06-10] MEDS: PIPERACILLIN/TAZOBACTAM 3.375 GM in DEXTROSE 5% 100 ML IV SCH (05:53)
[2019-06-10] MEDS: SODIUM CHLOR 7% 4 ML NEB NEB SCH (07:01)
[2019-06-10] MEDS ORDERED: INSULIN DETEMIR FLEXPEN/FLEX TOUCH 100 UNITS/ML 3ML SC SCH (09:00)
[2019-06-10] MEDS: INSULIN ASPART 100 UNITS/ML 3 ML PEN SC SCH ×4 (09:22→20:45)
[2019-06-10] MEDS: HEPARIN SOD 5,000 UNIT/0.5 ML VIAL SQ SCH ×2 (09:27→20:36)
[2019-06-10] MEDS: guaiFENesin 600 MG TABCR PO SCH ×2 (09:35→20:39)
[2019-06-10] MEDS: LOSARTAN POTASSIUM 50 MG TAB PO SCH (09:35)
[2019-06-10] MEDS: FLUTICASONE PROPIONATE NA SPR 16 GM BTL SCH (09:35)
[2019-06-10] MEDS: ASPIRIN 81 MG ECTAB PO SCH (09:35)
[2019-06-10] MEDS: PROPRANOLOL HCL 60 MG LA CAP PO SCH (09:35)
[2019-06-10] MEDS: CETIRIZINE HCL 10 MG TABLET PO SCH (09:36)
[2019-06-10] MEDS: AMLODIPINE BESYLATE 5 MG TAB PO SCH (09:36)
[2019-06-10] MEDS: SENNA 8.6 MG TAB PO SCH (09:53)
[2019-06-10] MEDS: POLYETHYLENE (MIRALAX) 17 GM PACK PO SCH (09:53)
[2019-06-10] MEDS: MUPIROCIN 2% OINT 22 GM TUBE INTNAS SCH ×2 (09:57→20:35)
--- NOTE | 2019-06-10 09:59 | Pulmonology Progress Note ---
Date of Service June 10, 2019 Assessment & Plan (1) Mycobacterium avium complex: Chronic MAC untreated since 03/2016 It is unknown whether the MAC has colonized or not but treatment should not start acutely in the inpatient setting Would recommend follow-up in 3 months and have gisell discussion with patient and family about benefit versus risk of triple antibiotic therapy. Follow-up with outpatient pulmonology at [facility] (2) Pneumonia: Patient noted to have reports of aspiration back to 2014 Patient continues on Zosyn and doxycycline. Continue to recommend swallow study Negative for pertussis Negative for influenza a and B Nasal swab positive for MRSA Sputum culture positive for pansensitive staph aureus Consider changing antibiotic to Bactrim No current recommendation for bronchoscopy or other biopsying No acid-fast bacilli on sputum smear * Follow culture with outpatient clinic Continue supportive care Laterality: bilateral Lung location: unspecified part of lung Pneumonia type: due to unspecified organism Qualified Code(s): J18.9 - Pneumonia, unspecified organism (3) Abnormal CT of the chest: Patient with waxing and waning groundglass opacities consistent with MAC Continue close follow-up with [facility] pulmonology and PCP Sputum with pansensitive staph aureus (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 We will sign off at this time. Please feel free to reconsult as needed. Please refer to Dr. Chandler's addendum and corrections for further recommendations. Subjective Attending: Dr. Chandler Patient is awake and alert and pleasant. She states that her cough continues but she still has limited sputum production. She has no chest pain or tightness. She has no fever. She has been ambulating about the room with no difficulty per her report. She is currently undergoing PT/OT continuing treatment. Patient is currently on doxycycline and Zosyn for MRSA pneumonia versus aspiration pneumonia. She feels as though she is improving daily and feels ready for discharge. Review of Systems Review of Systems: All systems reviewed & are unremarkable except as noted in HPI & below Physical Exam Physical Exam: GENERAL : No acute distress. Pleasant EYES: No icterus, gaze conjugate NOSE: No evidence of epistaxis MOUTH: No lesions or candidiasis. Mucosa moist NECK: Supple LUNGS: Bibasilar crackles. Otherwise clear to auscultation bilaterally HEART: Regular, rate controlled ABDOMEN: Soft, NT, ND, BS Present EXTREMITIES: No LE edema, pedal pulses intact NEURO: A&OX3 Results & Data Vital Signs (Past 12 Hours) Vital Signs Temp Pulse Pulse Resp BP Pulse Ox 06/10/19 07:59 37.3 C 79 20 114/69 100 06/10/19 07:01 83 16 94 06/10/19 04:00 36.9 C 82 19 122/63 92 06/10/19 01:11 61 16 94 06/10/19 00:27 79 06/10/19 00:00 37.3 C 81 18 121/78 96 Laboratory Results 06/09/19 05:44 06/09/19 05:44 Diagnostic Findings No further imaging since 06/07/2019 PG Care Time/CCT Total # of Minutes Spent Total Time Spent with Patient: Total time spent is greater than 50% in coordination of care (as documented) at patient's floor/unit and/or counseling patient:
--- NOTE | 2019-06-10 14:16 | Pharmacy Report ---
Pharmacy Glycemic Short Note 2 - Date of Service June 10, 2019 - Glycemic Short BSG Results (Last 24 hours): 06/09/19 06/09/19 06/10/19 16:33 20:18 07:33 POC Glucose 291 H 209 H 243 H 06/10/19 06/10/19 06/10/19 11:44 11:45 13:18 POC Glucose 344 H* 350 H* 323 H* 06/10/19 13:23 POC Glucose 343 H* OUTPATIENT ANTIDIABETIC REGIMEN: * Levemir 30 units SQ QAM * Victoza 1.8 mg SQ QAM ASSESSMENT: * Patient received total 61 units of insulin yesterday; 30 units basal and 31 units bolus. Total daily dose continues to increase daily (33 units on 06/07, 44 units on 06/08, 61 units on 06/09) * Fasting BSG is significantly elevated today at 243 mg/dl. This is up from 179 mg/dl yesterday despite basal insulin dose increase yesterday. Will increase basal insulin dose further- may need more basal while outpatient Victoza is on hold. * Lunch BSG was also high- SEVERE hyperglycemia with BSG = 350mg/dl. Novolog CF and CR were tightened further at breakfast preceding this BSG. Unsure of the cause of this hyperglycemia - no snacking, steroids, etc. Therefore, hesitant to increase further since changes were just made this morning. Will give orders as written and re-check BSG in 2 hrs. PLAN FOR INPATIENT GLYCEMIC CONTROL: * Hold outpatient Victoza * Basal insulin: increase dose by ~25% * Lantus 40 units SQ QAM * Bolus insulin: tighten CF and lower goal range * NovoLog per scale ACHS or Q6hrs while NPO * Goal Range: Low 120 mg/dL - High 150 mg/dL * Correction Factor: 20 mg/dL/unit * Nutritional / Prandial insulin per carb ratio of 1 unit per 6 grams CHO consumed PLAN FOR DISCHARGE: * HbA1c = 7.9% * Goal A1c for this patient given her age and co-morbidities would be <8%. Would resume her home anti-diabetic meds: Levemir and Victoza upon discharge as long as patient is not reporting hypoglycemia at home.
[2019-06-10] MEDS ORDERED: INSULIN ASPART 100 UNITS/ML 3 ML PEN SC SCH (14:40)
[2019-06-10] MEDS ORDERED: AMOXICILLIN/CLAVULANATE 875 MG TAB PO SCH (17:00)
[2019-06-10] MEDS ORDERED: DOXYCYCLINE HYCLATE 100 MG CAP PO SCH (21:00)
[2019-06-10 22:48] LABS: Hematocrit (blood only) 25.7 % (37-47); Hemoglobin 8.2 g/dL (12.0-16.0)
[2019-06-10] MEDS ORDERED: SODIUM CHLORIDE 0.9% 250 ML IV PRN (22:54)
[2019-06-10] MEDS ORDERED: ACETAMINOPHEN 325 MG TAB PO ONE (22:55)
[2019-06-10] MEDS ORDERED: PANTOprazole 80 MG in DEXTROSE 5% 100 ML IV ONE (23:00)
[2019-06-10] MEDS: SODIUM CHLORIDE 0.9% 1000ML 1,000 ML IV SCH (23:32)
[2019-06-10] MEDS: PANTOprazole 40 MG in DEXTROSE 5% 100 ML IV SCH (23:53)
[2019-06-11] MEDS ORDERED: FUROSEMIDE 20 MG in SYRINGE 0 ML IV ONE
[2019-06-11] MEDS: IPRATROPIUM BROMIDE NEB SOLN 0.02% 2.5 ML VIAL INH SCH ×4 (01:23→19:47)
[2019-06-11] MEDS: LEVALBUTEROL 1.25MG/0.5ML NEB INH SCH ×4 (01:23→19:47)
[2019-06-11] MEDS: INSULIN ASPART 100 UNITS/ML 3 ML PEN SC SCH ×5 (01:25→20:20)
[2019-06-11] MEDS: PANTOprazole 40 MG in DEXTROSE 5% 100 ML IV SCH ×3 (04:27→14:02)
[2019-06-11] MEDS ORDERED: FUROSEMIDE 10 MG in SYRINGE 0 ML IV STA (04:50)
--- NOTE | 2019-06-11 05:45 | Hospitalist Progress Note ---
Date of Service May late entry pt was seen on May at 1 pm Assessment & Plan (1) Pneumonia: Atypical pneumonia vs MRSA pneumonia vs FATOUMATA flare vs acute sinusitis. Symptom has improved, Zosyn D/lise Doxycycline changed to PO Pulmonology following appreciate input continues to have productive cough repeat sputum culture ordered (2) Traction bronchiectasis: Continue pulmonary recommendation ordeered flutter valve (3) Mycobacterium avium complex: Per pulmonology repeat evaluation in the next couple of months to have the discussion of treatment again as outpatient. (4) Diabetes: Episode of hyperglycemia noted, Not on any prednisone On insulin sliding scale and basal Lantus Pharmacy following for glycemic management (5) H/O: CVA (cerebrovascular accident): Continue on aspirin (6) MRSA carrier: Bactroban started intranasally. No open wound. (7) Hyponatremia: improved. (8) DVT prophylaxis: Heparin DNR Disposition: Continue PT OT Will need rehab /SNF Referral made to [facility] Subjective late entry for visit on 06/10/19 had coughing spell earlier which led to vomiting -had frothy white mucous only no nausea at present feels much better , no complain of SOB no hypoxia , in room air No diarrhea or loose bowel movements and step son presnt at bedside Review of Systems Respiratory: + cough; no dyspnea Gastrointestinal: + nausea and + vomiting Physical Exam Constitutional: WD/WN, vitals as above + thin; no acute distress Eyes: PERRL, conjunctivae normal, anicteric sclerae ENMT: external ear and nose normal, oropharynx normal Neck: trachea midline, no thyromegaly Respiratory: normal respiratory effort and + cough Auscultation: + crackles and + wheezes Cardiovascular: RRR, no murmur, no edema Gastrointestinal (Abdomen): normal bowel sounds, soft, nontender, no hepatosplenomegaly Skin: no rashes, warm and dry Neurologic: PERRL, EOMI, accommodation nl, no face palsy, no dysarthria Psychiatric: A+Ox3, euthymic affect Results & Data Vital Signs (Past 12 Hours) Vital Signs Temp Pulse Pulse Resp BP BP Pulse Ox 06/11/19 04:55 36.4 C L 70 20 116/52 L 96 06/11/19 04:51 36.4 C L 70 18 121/52 L 97 06/11/19 04:25 36.6 C 71 18 115/65 97 06/11/19 04:06 36.3 C L 68 20 107/44 L 100 06/11/19 03:50 36.5 C 73 16 103/60 96 06/11/19 03:41 36.5 C 73 16 103/60 96 06/11/19 03:03 36.7 C 72 16 113/61 96 06/11/19 02:03 36.2 C L 71 17 108/58 L 96 06/11/19 01:33 36.4 C L 73 16 102/57 L 100 06/11/19 01:25 75 16 95 06/11/19 01:18 36.6 C 70 16 103/47 L 100 06/11/19 01:16 36.6 C 70 16 103/47 L 100 06/11/19 01:00 36.9 C 76 16 102/55 L 96 06/10/19 23:00 36.7 C 77 18 115/60 93 06/10/19 22:07 36.3 C L 80 16 113/65 94 06/10/19 20:02 87 16 99 (1) Pneumonia Laterality: bilateral Lung location: unspecified part of lung Pneumonia type: due to unspecified organism Qualified Code(s): J18.9 - Pneumonia, unspecified organism
[2019-06-11] MEDS ORDERED: PIPERACILL/TAZOBAC CONSULT ACTIVE PRN (08:38)
[2019-06-11] MEDS ORDERED: INSULIN DETEMIR FLEXPEN/FLEX TOUCH 100 UNITS/ML 3ML SC SCH ×2 (09:00)
[2019-06-11] MEDS ORDERED: PIPERACILLIN/TAZOBACTAM 3.375 GM in DEXTROSE 5% 100 ML IV ONE (09:00)
[2019-06-11 09:04] LABS: BUN Creatinine Ratio 50.3 (10-20); Calcium 8.3 mg/dl (8.5-10.1); Creatinine Clr Calc Pharmacy 55.1 ml/min; Est GFR (African American) 99.4; Est GFR (Non-African American) 85.7; Magnesium 1.5 mg/dl (1.8-2.4); Potassium 4.1 mmol/L (3.5-5.1)
[2019-06-11] MEDS: MUPIROCIN 2% OINT 22 GM TUBE INTNAS SCH ×2 (09:07→20:16)
[2019-06-11] MEDS: FLUTICASONE PROPIONATE NA SPR 16 GM BTL SCH (09:08)
[2019-06-11 09:10] LABS: Basophils # (auto) 0.02 K/uL (0-0.2); Basophils % (auto) 0.3 %; Echinocytes 1+; Eosinophils # (auto) 0.31 K/uL (0-0.5); Eosinophils % (auto) 4.1 %; Hematocrit (blood only) 37.9 % (37-47); Hemoglobin 12.3 g/dL (12.0-16.0); Immature Granulocytes # (auto) 0.05 K/uL (0.00-0.02); Immature Granulocytes % (auto) 0.7 %; Lymphocytes # (auto) 1.58 K/uL (1.2-3.4); Lymphocytes % (auto) 20.7 %; Mean Corpuscular Hemoglobin 25.3 pg (25-34); Mean Corpuscular Hgb Conc 32.5 g/dL (32-36); Mean Corpuscular Volume 77.8 fL (80-100); Mean Platelet Volume 9.2 fL (7.4-10.4); Microcytosis Present; Monocytes # (auto) 0.63 K/uL (0.11-0.59); Monocytes % (auto) 8.2 %; Neutrophils # (auto) 5.05 K/uL (1.4-6.5); Platelet Count 264 K/uL (130-400); RDW Coefficient of Variation 17.4 % (11.5-14.5); Red Blood Count 4.87 M/uL (4.2-5.4); White Blood Count 7.64 K/uL (4.8-10.8)
[2019-06-11] MEDS: INSULIN DETEMIR FLEXPEN/FLEX TOUCH 100 UNITS/ML 3ML SC SCH (09:41)
[2019-06-11] MEDS: PROPRANOLOL HCL 60 MG LA CAP PO SCH (09:49)
--- NOTE | 2019-06-11 11:09 | Hospitalist Progress Note ---
Date of Service June 11, 2019 Subjective spoke with Pt's Daughter Jyothi ( living in [place] ) Cell no # [phone] updated regarding pt's status -including overnight event of black tarry stool , concern for possible GI Bleed no plan for transfer to rehab GI is consulted pt is NPO with Iv protonix gtt follow H&H Yolanda Lundy MD Results & Data Vital Signs (Past 12 Hours) Vital Signs Temp Pulse Pulse Resp BP BP Pulse Ox 06/11/19 07:20 77 18 93 06/11/19 06:55 36.5 C 67 18 110/50 L 97 06/11/19 06:45 36.5 C 68 16 114/57 L 96 06/11/19 05:51 36.3 C L 72 18 112/63 96 06/11/19 04:55 36.4 C L 70 20 116/52 L 96 06/11/19 04:51 36.4 C L 70 18 121/52 L 97 06/11/19 04:25 36.6 C 71 18 115/65 97 06/11/19 04:06 36.3 C L 68 20 107/44 L 100 06/11/19 03:50 36.5 C 73 16 103/60 96 06/11/19 03:41 36.5 C 73 16 103/60 96 06/11/19 03:03 36.7 C 72 16 113/61 96 06/11/19 02:03 36.2 C L 71 17 108/58 L 96 06/11/19 01:33 36.4 C L 73 16 102/57 L 100 06/11/19 01:25 75 16 95 06/11/19 01:18 36.6 C 70 16 103/47 L 100 06/11/19 01:16 36.6 C 70 16 103/47 L 100 06/11/19 01:00 36.9 C 76 16 102/55 L 96
[2019-06-11] MEDS ORDERED: Nursing to Pharmacy Communication ONE ×2 (11:24→15:27)
[2019-06-11] MEDS: SODIUM CHLORIDE 0.9% 1000ML 1,000 ML IV SCH (11:30)
[2019-06-11] MEDS ORDERED: INSULIN ASPART 100 UNITS/ML 3 ML PEN SC SCH (12:00)
--- NOTE | 2019-06-11 12:13 | Gastrointestinal Consultation ---
Date of Consultation June 11, 2019 Assessment & Plan (1) Dark stools: in the setting of active pneumonia that is being treated. possilbe gastric erosions vs. PUD. would monitor conservatively in the setting of pneumonia at this time. Recs: change PPI to protonix 40 mg BID and continue for 3 months clear liquid diet, can advance as tolerated if hgb remains stable supportive care no plans for endoscopic procedures at this time Thank you for allowing me to participate in the care of this patient (2) Anemia: History of Present Illness Attending Physician: Yolanda Lundy MD 84 yo female with hx DM here for with pneumonia. She was found to have chronic MAC infection and is currently on treatment for pneumonia. GI consulted because overnight she had an episode of dark tarry stool, hgb noted to be as low as 8.2, currently 12.3 this morning. Upon discussing with the patient, she denies any n/v, abdominal pains at this time, denies hematemesis, melena, hematochezia. She says she had a colonoscopy 10 years ago with no significant abnormalities, denies hx PUD, denies NSAID abuse. Currently on PPI drip. Labs reviewed, notable for BUN of 28. Allergies Allergy/AdvReac Type Severity Reaction Status Date / Time No Known Allergies Allergy Verified 06/06/19 20:04 Home Medications Home Medications Medication Instructions Recorded Confirmed Type losartan 50 mg PO DAILY 08/26/18 06/06/19 History propranolol 120 mg PO DAILY 08/26/18 06/06/19 History solifenacin 5 mg PO DAILY 03/20/19 06/06/19 History amlodipine [Norvasc] 5 mg PO QAM #30 tab 03/25/19 06/06/19 Rx Levemir FlexTouch U-100 Insuln 30 unit SUBCUT QAM 05/20/19 06/06/19 History acetaminophen 650 mg PO Q6H PRN 05/20/19 06/06/19 History albuterol sulfate [ProAir 2 inh INHALATION Q4H PRN 05/20/19 06/06/19 History RespiClick] ascorbic acid (vitamin C) 500 mg PO BID 05/20/19 06/06/19 History cetirizine [Zyrtec] 10 mg PO DAILY 05/20/19 06/06/19 History cholecalciferol (vitamin D3) 2,000 unit PO DAILY 05/20/19 06/06/19 History [Vitamin D3] fluticasone propionate 2 spray INTRANASAL DAILY 05/20/19 06/06/19 History liraglutide [Victoza 3-Rober] 1.8 mg SUBCUT QAM 05/20/19 06/06/19 History multivitamin 1 tab PO DAILY 05/20/19 06/06/19 History polyethylene glycol 3350 [GlycoLax] 17 g PO DAILY 05/20/19 06/06/19 History sennosides 8.6 mg PO DAILY 05/20/19 06/06/19 History tramadol 50 mg PO Q4H PRN 05/20/19 06/06/19 History Patient History Medical History Abnormal CT of the chest Degenerative arthritis of cervical spine (Acute) Diabetes (Chronic) History of right hip replacement (Resolved) Left elbow fracture (Acute) Mycobacterium avium complex Osteoporosis (Chronic) Stroke (Resolved) Traction bronchiectasis Surgical History History of bronchoscopy 03/[address] Najera Family History Other No pertinent family history Social History Preferred Language: Cypriot Communication Ability: Effective Syruper Required: No Beliefs That Will Affect Care: None Current Living Situation: Spouse Feels Safe at Home: No Is there a partner from a previous relationship who is making you feel unsafe now?: No Smoking Status: Never smoker Second Hand Exposure: No ; Hx Alcohol Use: No Hx Substance Use: No Review of Systems Constitutional: no fever, no chills and no weight loss Eyes: as per Subjective / HPI Ear, Nose, Mouth, Throat: as per Subjective / HPI Respiratory: no dyspnea and no dyspnea on exertion Cardiovascular: no chest pain and no palpitations Gastrointestinal: as per Subjective / HPI Musculoskeletal: no joint pain and no swelling Integumentary: no rash and no lesions Neurologic: no numbness and no paresthesia Psychiatric: no depression and no anxiety Endocrine: no fatigue Hematologic / Lymphatic: no easy bleeding and no easy bruising Physical Exam Constitutional: WD/WN, vitals as above Eyes: EOM intact bilaterally Neck: normal visual inspection Respiratory: normal respiratory effort, lungs clear to auscultation Cardiovascular: RRR, no murmur, no edema Gastrointestinal (Abdomen): Inspection/Auscultation: abdomen normal to inspection; abdomen not distended Percussion/Palpation: abdomen soft; abdomen nontender and no hepatosplenomegaly Musculoskeletal: Extremities: no cyanosis Gait: normal gait Skin: no rashes, warm and dry Neurologic: moves all extremities Psychiatric: A+Ox3, euthymic affect Results & Data Vital Signs (Past 12 Hours) Vital Signs Temp Pulse Pulse Resp BP BP Pulse Ox 06/11/19 07:20 77 18 93 06/11/19 06:55 36.5 C 67 18 110/50 L 97 06/11/19 06:45 36.5 C 68 16 114/57 L 96 06/11/19 05:51 36.3 C L 72 18 112/63 96 06/11/19 04:55 36.4 C L 70 20 116/52 L 96 06/11/19 04:51 36.4 C L 70 18 121/52 L 97 06/11/19 04:25 36.6 C 71 18 115/65 97 06/11/19 04:06 36.3 C L 68 20 107/44 L 100 06/11/19 03:50 36.5 C 73 16 103/60 96 06/11/19 03:41 36.5 C 73 16 103/60 96 06/11/19 03:03 36.7 C 72 16 113/61 96 06/11/19 02:03 36.2 C L 71 17 108/58 L 96 06/11/19 01:33 36.4 C L 73 16 102/57 L 100 06/11/19 01:25 75 16 95 06/11/19 01:18 36.6 C 70 16 103/47 L 100 06/11/19 01:16 36.6 C 70 16 103/47 L 100 06/11/19 01:00 36.9 C 76 16 102/55 L 96 PG Care Time/CCT Total # of Minutes Spent Total Time Spent with Patient: Total time spent is greater than 50% in coordination of care (as documented) at patient's floor/unit and/or counseling patient: Coding Level of Care Code 88994 Initial Inpt Care Lvl 3 Diagnoses Dark stools R19.5 Anemia D64.9
[2019-06-11] MEDS: PIPERACILLIN/TAZOBACTAM 3.375 GM in DEXTROSE 5% 100 ML IV SCH ×2 (14:02→22:03)
--- NOTE | 2019-06-11 14:33 | Pharmacy Report ---
Pharmacy Glycemic Short Note 2 - Date of Service June 11, 2019 - Glycemic Short BSG Results (Last 24 hours): 06/10/19 06/10/19 06/10/19 14:47 16:25 20:42 Glucose POC Glucose 274 H 152 H 69 L* 06/10/19 06/10/19 06/11/19 20:44 22:02 00:15 Glucose POC Glucose 76 89 97 06/11/19 06/11/19 06/11/19 04:04 07:53 08:19 Glucose 97 POC Glucose 89 90 06/11/19 12:20 Glucose POC Glucose 125 H OUTPATIENT ANTIDIABETIC REGIMEN: * Levemir 30 units SQ QAM * Victoza 1.8 mg SQ QAM ASSESSMENT: * Patient received total 78 units of insulin yesterday; 40 units basal and 38 units bolus. * Yesterday at HS patient's BSG was 69 which was treated for hypoglycemia. BSGs at 00 and 04 checks were 97 and 89. Fasting BSG this AM was 90. * HS BSG was low most likely d/t repeated doses of Novolog given to correct hyperglycemia around lunch, between lunch and dinner and then again at dinner. * Additionally, patient also received 40 units of Levemir yesterday morning which was higher than his home dose. * Patient also found to have dark stools and anemic. Diet was changed to NPO overnight. Levemir dose was decreased by provider overnight and then put on hold this AM. * I spoke to Dr. Lundy this morning, recommended resuming Levemir at a lower dose. Since patient is NPO, I reduced basal by 50% of home dose. Lunch BSG is at goal now. * Patient would need more Levemir when diet advances. Will increase cautiously. PLAN FOR INPATIENT GLYCEMIC CONTROL: * Hold outpatient Victoza * Basal insulin: decreased * Lantus 15 units SQ QAM * Bolus insulin: loosened CF and continued CR * NovoLog per scale ACHS or Q6hrs while NPO * Goal Range: Low 120 mg/dL - High 150 mg/dL * Correction Factor: 25 mg/dL/unit * Nutritional / Prandial insulin per carb ratio of 1 unit per 6 grams CHO consumed PLAN FOR DISCHARGE: * HbA1c = 7.9% * Goal A1c for this patient given her age and co-morbidities would be <8%. Would resume her home anti-diabetic meds: Levemir and Victoza upon discharge as long as patient is not reporting hypoglycemia at home.
--- NOTE | 2019-06-11 15:06 | Hospitalist Progress Note ---
Date of Service June 11, 2019 Assessment & Plan (1) GI bleed: Patient developed dark tarry stool overnight, Stat H&H showed acute drop in hemoglobin from 118 Did not had any hemodynamic instability Patient received 2 units of PRBC transfusion overnight Ordered for n.p.o., IV Protonix drip Patient did not had any nausea vomiting denies of any epigastric discomfort or pain GI consult requested, appreciate input Repeat H&h shows hemoglobin 12.4 Per GI team, recommends conservative approach, as there is no evidence of active GI bleed Clear liquid diet ordered, will be advanced as tolerated Start on Protonix 40 mg p.o. twice daily need to continue for total 3 weeks, IV Protonix discontinued Will avoid NSAIDs (2) Pneumonia: Sputum culture growing staph aureus MSSA/Pseudomonas Patient started on Zosyn: Should provide adequate coverage for MSSA and Pseudomonas Pulmonology following appreciate input Cough symptom has improved markedly no pleuritic chest pain no fever or chills, no shortness of breath or hypoxia remains in room air Continue with IV antibiotics, Later antibiotic can be changed to p.o. 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 (5) Diabetes: Appreciate input from pharmacy for glycemic management Continue insulin sliding scale and basal Lantus (6) H/O: CVA (cerebrovascular accident): Hold aspirin in the setting of concern for possible GI bleed (7) MRSA carrier: Bactroban started intranasally. No open wound. (8) Hyponatremia: improved. (9) DVT prophylaxis: Subcu heparin discontinued, ordered for SCD and teds CODE STATUS: DNR/DNI Disposition: Continue PT OT Will need rehab /SNF Referral made to [facility] Patient will need continued hospital stay for concern of GI bleed Patient's sister present at bedside, updated Subjective Feels fine, denies of any nausea vomiting, ordered clear liquid diet, tolerating well Had bowel movement, dark brown, Stool Hemoccult could not be done as stool sample was mixed with urine Repeat H&H looks stable 10.8 No hemodynamic instability Patient denies of any shortness of breath no cough no wheeze no fever or chills Comfortable More awake alert today, conversing appropriately Review of Systems Respiratory: no cough and no dyspnea Gastrointestinal: as per Subjective / HPI; no abdominal pain, no nausea and no vomiting Physical Exam Constitutional: WD/WN, vitals as above + thin; no acute distress Eyes: PERRL, conjunctivae normal, anicteric sclerae ENMT: external ear and nose normal, oropharynx normal Neck: trachea midline, no thyromegaly Respiratory: normal respiratory effort, lungs clear to auscultation Cardiovascular: RRR, no murmur, no edema Gastrointestinal (Abdomen): normal bowel sounds, soft, nontender, no hepatosplenomegaly Skin: no rashes, warm and dry Neurologic: PERRL, EOMI, accommodation nl, no face palsy, no dysarthria Psychiatric: A+Ox3, euthymic affect Results & Data Vital Signs (Past 12 Hours) Vital Signs Temp Pulse Pulse Resp BP BP BP 06/11/19 14:51 35.9 C L 69 18 107/65 06/11/19 13:29 68 18 06/11/19 07:20 77 18 06/11/19 06:55 36.5 C 67 18 110/50 L 06/11/19 06:45 36.5 C 68 16 114/57 L 06/11/19 05:51 36.3 C L 72 18 112/63 06/11/19 04:55 36.4 C L 70 20 116/52 L 06/11/19 04:51 36.4 C L 70 18 121/52 L 06/11/19 04:25 36.6 C 71 18 115/65 06/11/19 04:06 36.3 C L 68 20 107/44 L 06/11/19 03:50 36.5 C 73 16 103/60 06/11/19 03:41 36.5 C 73 16 103/60 Pulse Ox 06/11/19 14:51 96 06/11/19 13:29 93 06/11/19 07:20 93 06/11/19 06:55 97 06/11/19 06:45 96 06/11/19 05:51 96 06/11/19 04:55 96 06/11/19 04:51 97 06/11/19 04:25 97 06/11/19 04:06 100 06/11/19 03:50 96 06/11/19 03:41 96 (1) Diabetes Diabetes mellitus type: type 2 (2) Pneumonia Laterality: bilateral Lung location: unspecified part of lung Pneumonia type: due to unspecified organism Qualified Code(s): J18.9 - Pneumonia, unspecified organism (3) GI bleed GI bleed type/associated pathology: unspecified gastrointestinal hemorrhage type Qualified Code(s): K92.2 - Gastrointestinal hemorrhage, unspecified
[2019-06-11 15:46] LABS: Hematocrit (blood only) 33.4 % (37-47); Hemoglobin 10.8 g/dL (12.0-16.0)
[2019-06-11] MEDS: PANTOprazole 40 MG TAB PO SCH (20:15)
[2019-06-12] MEDS: IPRATROPIUM BROMIDE NEB SOLN 0.02% 2.5 ML VIAL INH SCH ×3 (01:34→13:26)
[2019-06-12] MEDS: LEVALBUTEROL 1.25MG/0.5ML NEB INH SCH ×3 (01:35→13:26)
[2019-06-12] MEDS: PIPERACILLIN/TAZOBACTAM 3.375 GM in DEXTROSE 5% 100 ML IV SCH (06:00)
[2019-06-12 06:25] LABS: Hematocrit (blood only) 37.8 % (37-47); Hemoglobin 12.3 g/dL (12.0-16.0)
[2019-06-12] MEDS: INSULIN ASPART 100 UNITS/ML 3 ML PEN SC SCH ×4 (09:55→20:47)
[2019-06-12] MEDS: INSULIN DETEMIR FLEXPEN/FLEX TOUCH 100 UNITS/ML 3ML SC SCH (09:55)
[2019-06-12] MEDS: FLUTICASONE PROPIONATE NA SPR 16 GM BTL SCH (09:59)
--- NOTE | 2019-06-12 11:19 | Hospitalist Progress Note ---
Date of Service June 12, 2019 Assessment & Plan (1) GI bleed: no further episode HB stable at 12 ordered to advance diet has been tolerating well, Hemoccult was positive, No active evidence dense of GI bleed, no endoscopic procedure indicated Patient will continue to take Protonix 40 mg twice daily for 3 weeks Patient developed dark tarry stool overnight, Acute blood loss anemia with stat H&H showed acute drop in hemoglobin from 118 Status post 2 unit of PRBC transfusion overnight, Posttransfusion H&H improved to 12.4/37.8 Patient did not had any nausea vomiting denies of any epigastric discomfort or pain GI consult requested, appreciate input Per GI team, recommends conservative approach, as there is no evidence of active GI bleed Initially was on clear liquid diet, no further episode of GI bleed, diet advanced to regular has been tolerating well Will avoid NSAIDs (2) Pneumonia: Sputum culture growing staph aureus MSSA/Pseudomonas Patient started on Zosyn: Should provide adequate coverage for MSSA and Pseudomonas Pulmonology following appreciate input Cough symptom has improved markedly no pleuritic chest pain no fever or chills, no shortness of breath or hypoxia remains in room air change Abx to p.o. 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 (5) Diabetes: Appreciate input from pharmacy for glycemic management Continue insulin sliding scale and basal Lantus (6) H/O: CVA (cerebrovascular accident): Hold aspirin in the setting of concern for possible GI bleed (7) MRSA carrier: Bactroban started intranasally. No open wound. (8) Hyponatremia: improved. (9) DVT prophylaxis: Subcu heparin discontinued, ordered for SCD and teds CODE STATUS: DNR/DNI Disposition: Continue PT OT Will need rehab /SNF Referral made to [facility] tomorrow Patient's sister present at bedside, updated Subjective Feels fine, no further episode of dark stool, no nausea vomiting or abdominal pain Feels hungry, diet advanced to regular has been tolerating well No cough no fever chills no chest pain or shortness of breath Review of Systems Review of Systems: All systems reviewed & are unremarkable except as noted in HPI & below Respiratory: as per Subjective / HPI; no cough, no dyspnea and no wheezing Gastrointestinal: no abdominal pain, no nausea, no vomiting, no diarrhea/loose stools and no blood in stools Physical Exam Constitutional: WD/WN, vitals as above + thin; no acute distress Eyes: PERRL, conjunctivae normal, anicteric sclerae ENMT: external ear and nose normal, oropharynx normal Neck: trachea midline, no thyromegaly Respiratory: normal respiratory effort, lungs clear to auscultation Cardiovascular: RRR, no murmur, no edema Gastrointestinal (Abdomen): normal bowel sounds, soft, nontender, no hepatosplenomegaly Skin: no rashes, warm and dry Neurologic: PERRL, EOMI, accommodation nl, no face palsy, no dysarthria Psychiatric: A+Ox3, euthymic affect Results & Data Vital Signs (Past 12 Hours) Vital Signs Temp Pulse Resp BP BP Pulse Ox Pulse Ox 06/12/19 07:43 80 18 96 06/12/19 07:30 36.4 C L 83 18 165/68 H 91 06/12/19 01:35 75 18 96 06/12/19 00:00 95 06/11/19 23:50 36.5 C 74 18 141/59 H 95 (1) Diabetes Diabetes mellitus type: type 2 (2) GI bleed GI bleed type/associated pathology: unspecified gastrointestinal hemorrhage type Qualified Code(s): K92.2 - Gastrointestinal hemorrhage, unspecified (3) Pneumonia Laterality: bilateral Lung location: unspecified part of lung Pneumonia type: due to unspecified organism Qualified Code(s): J18.9 - Pneumonia, unspecified organism
[2019-06-12] MEDS: PROPRANOLOL HCL 60 MG LA CAP PO SCH (11:58)
[2019-06-12] MEDS: PANTOprazole 40 MG TAB PO SCH ×2 (11:58→20:23)
[2019-06-12] MEDS ORDERED: INSULIN DETEMIR FLEXPEN/FLEX TOUCH 100 UNITS/ML 3ML SC STA (14:30)
[2019-06-12] MEDS: AMOXICILLIN/CLAVULANATE 875 MG TAB PO SCH (16:44)
[2019-06-13 07:26] LABS: Hematocrit (blood only) 36.6 % (37-47); Hemoglobin 11.9 g/dL (12.0-16.0)
[2019-06-13] MEDS: PROPRANOLOL HCL 60 MG LA CAP PO SCH (08:00)
[2019-06-13] MEDS: AMOXICILLIN/CLAVULANATE 875 MG TAB PO SCH ×2 (08:00→17:34)
[2019-06-13] MEDS: PANTOprazole 40 MG TAB PO SCH ×2 (08:00→20:26)
[2019-06-13] MEDS: FLUTICASONE PROPIONATE NA SPR 16 GM BTL SCH (08:02)
[2019-06-13] MEDS: INSULIN ASPART 100 UNITS/ML 3 ML PEN SC SCH ×4 (08:59→21:41)
[2019-06-13] MEDS: INSULIN DETEMIR FLEXPEN/FLEX TOUCH 100 UNITS/ML 3ML SC SCH (09:00)
--- NOTE | 2019-06-13 10:58 | Hospitalist Progress Note ---
Date of Service June 13, 2019 Assessment & Plan (1) GI bleed: no further episode Globin remained stable 11 Tolerating diet Hemoccult was positive, No active evidence dense of GI bleed, no endoscopic procedure indicated Patient will continue to take Protonix 40 mg twice daily for 3 weeks Episode of dark stool during this episode Acute blood loss anemia with stat H&H showed acute drop in hemoglobin from 118 Status post 2 unit of PRBC transfusion overnight, Posttransfusion H&H improved to 12.4/37.8 Patient did not had any nausea vomiting denies of any epigastric discomfort or pain GI consult requested, appreciate input Per GI team, recommends conservative approach, as there is no evidence of active GI bleed Avoid NSAIDs (2) Pneumonia: Sputum culture growing staph aureus MSSA/Pseudomonas Patient started on Zosyn: Should provide adequate coverage for MSSA and Pseudomonas Pulmonology following appreciate input Cough symptom has improved markedly no pleuritic chest pain no fever or chills, no shortness of breath or hypoxia remains in room air change Abx to p.o. 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 (5) Diabetes: Appreciate input from pharmacy for glycemic management Continue insulin sliding scale and basal Lantus (6) H/O: CVA (cerebrovascular accident): Hold aspirin in the setting of concern for possible GI bleed Be resumed on discharge, as no evidence of bleeding noted (7) MRSA carrier: Bactroban started intranasally. No open wound. (8) Hyponatremia: improved. (9) DVT prophylaxis: Subcu heparin discontinued, ordered for SCD and teds CODE STATUS: DNR/DNI Disposition: Continue PT OT Will need rehab /SNF Referral made to [facility] Will to be transferred to skilled rehab tomorrow Patient's sister present at bedside, updated Subjective No cough no shortness of breath, tolerating solid diet well, no further dark tarry stool, Plan to discharge to skilled rehab tomorrow Review of Systems Respiratory: as per Subjective / HPI; no dyspnea Physical Exam Constitutional: WD/WN, vitals as above + thin; no acute distress Eyes: PERRL, conjunctivae normal, anicteric sclerae ENMT: external ear and nose normal, oropharynx normal Neck: trachea midline, no thyromegaly Respiratory: normal respiratory effort, lungs clear to auscultation normal respiratory effort and + cough Auscultation: + crackles and + wheezes Cardiovascular: RRR, no murmur, no edema Gastrointestinal (Abdomen): normal bowel sounds, soft, nontender, no hepatosplenomegaly Skin: no rashes, warm and dry Neurologic: PERRL, EOMI, accommodation nl, no face palsy, no dysarthria Psychiatric: A+Ox3, euthymic affect Results & Data Vital Signs (Past 12 Hours) Vital Signs Temp Pulse Resp BP BP Pulse Ox 06/13/19 07:00 36.6 C 77 16 116/86 94 06/12/19 23:30 36.4 C L 74 18 121/65 98 (1) Diabetes Diabetes mellitus type: type 2 (2) GI bleed GI bleed type/associated pathology: unspecified gastrointestinal hemorrhage type Qualified Code(s): K92.2 - Gastrointestinal hemorrhage, unspecified (3) Pneumonia Laterality: bilateral Lung location: unspecified part of lung Pneumonia t ype: due to unspecified organism Qualified Code(s): J18.9 - Pneumonia, unspecified organism
[2019-06-13] MEDS: levoFLOXacin 500 MG TAB PO SCH (12:16)
[2019-06-14 06:08] LABS: Hematocrit (blood only) 32.2 % (37-47); Hemoglobin 10.3 g/dL (12.0-16.0)
[2019-06-14 06:36] LABS: Creatinine Clr Calc Pharmacy 52.4 ml/min; Est GFR (African American) 97.7; Est GFR (Non-African American) 84.3
[2019-06-14] MEDS: PANTOprazole 40 MG TAB PO SCH (08:27)
[2019-06-14] MEDS: PROPRANOLOL HCL 60 MG LA CAP PO SCH (08:27)
[2019-06-14] MEDS: AMOXICILLIN/CLAVULANATE 875 MG TAB PO SCH (08:27)
[2019-06-14] MEDS: FLUTICASONE PROPIONATE NA SPR 16 GM BTL SCH (08:28)
[2019-06-14] MEDS: INSULIN DETEMIR FLEXPEN/FLEX TOUCH 100 UNITS/ML 3ML SC SCH (08:28)
[2019-06-14] MEDS: INSULIN ASPART 100 UNITS/ML 3 ML PEN SC SCH ×2 (08:29→12:51)
--- NOTE | 2019-06-14 11:03 | Hospitalist Progress Note ---
Date of Service June 14, 2019 Assessment & Plan (1) GI bleed: no further episode hb has remained stable Tolerating diet Hemoccult was positive, patient may had episode of upper GI bleed which has resolved spontaneously Appreciate GI input No active evidence of GI bleed, no endoscopic procedure indicated Patient's advanced age and comorbidities without any active or acute GI bleed endoscopic procedure is not recommended Conservative approach Patient will continue to take Protonix 40 mg twice daily for 3 weeks Avoid NSAIDs Brief episode of dark stool during this admission Acute blood loss anemia with stat H&H showed acute drop in hemoglobin from 118 Status post 2 unit of PRBC transfusion overnight, Posttransfusion H&H improved to 12.4/37.8 Patient did not had any nausea vomiting denies of any epigastric discomfort or pain GI consult requested, appreciate input (2) Pneumonia: Sputum culture growing staph aureus MSSA/Pseudomonas Patient started on Zosyn: Should provide adequate coverage for MSSA and Pseudomonas Pulmonology following appreciate input Cough symptom has improved markedly no pleuritic chest pain no fever or chills, no shortness of breath or hypoxia remains in room air change Abx to p.o. 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 (5) Diabetes: Appreciate input from pharmacy for glycemic management Continue insulin sliding scale and basal Lantus (6) H/O: CVA (cerebrovascular accident): Hold aspirin in the setting of concern for possible GI bleed Be resumed on discharge, as no evidence of bleeding noted (7) MRSA carrier: Bactroban started intranasally. No open wound. (8) Hyponatremia: improved. (9) DVT prophylaxis: Subcu heparin discontinued, ordered for SCD and teds CODE STATUS: DNR/DNI Disposition: Continue PT OT Will need rehab /SNF Referral made to [facility] stable to be transferred to skilled rehab today Subjective No further episode of GI bleed, cough shortness of breath has resolved completely no fever or chills Stable to be transferred to rehab today Review of Systems Respiratory: as per Subjective / HPI; no dyspnea Physical Exam Constitutional: WD/WN, vitals as above + thin; no acute distress Eyes: PERRL, conjunctivae normal, anicteric sclerae ENMT: external ear and nose normal, oropharynx normal Neck: trachea midline, no thyromegaly Respiratory: normal respiratory effort, lungs clear to auscultation normal respiratory effort and + cough Auscultation: + crackles and + wheezes Cardiovascular: RRR, no murmur, no edema Gastrointestinal (Abdomen): normal bowel sounds, soft, nontender, no hepatosplenomegaly Skin: no rashes, warm and dry Neurologic: PERRL, EOMI, accommodation nl, no face palsy, no dysarthria Psychiatric: A+Ox3, euthymic affect Results & Data Vital Signs (Past 12 Hours) Vital Signs Temp Pulse Resp BP BP Pulse Ox 06/14/19 07:00 36.8 C 68 20 125/76 97 06/14/19 00:20 36.8 C 73 20 116/45 L 94 (1) Diabetes Diabetes mellitus type: type 2 (2) GI bleed GI bleed type/associated pathology: unspecified gastrointestinal hemorrhage type Qualified Code(s): K92.2 - Gastrointestinal hemorrhage, unspecified (3) Pneumonia Laterality: bilateral Lung location: unspecified part of lung Pneumonia type: due to unspecified organism Qualified Code(s): J18.9 - Pneumonia, unspecified organism
[2019-06-14] MEDS: levoFLOXacin 500 MG TAB PO SCH (12:51)
--- NOTE | 2019-06-14 15:50 | Discharge Summary ---
Date of Service June 14, 2019 Admission HPI Per Admitting Provider History of Present Illness 84-year-old female with history of bronchiectasis, diabetes, hypertension, CVA, recent left hip fracture status post repair, other problems noted below presenting with Confusion which was noticed this afternoon. She obtained from patient and her daughter at the bedside. About 2 weeks ago, patient was noted to have upper respiratory tract symptoms. PCP prescribed a course of prednisone which according to the patient's daughter did not alleviate the symptoms. Over the past few days, the patient was also noticed to have increased cough, productive of phlegm but no fevers or chills noted. The patient was discharged from [facility] and returned to her home around noon. Later in the afternoon, patient's family noticed that the patient was becoming confused, and was saying things which did not make any sense. She was given orange juice with the thought that this may be related to blood sugar, but patient's blood sugar was not taken and symptoms did not improve. Patient's confusion persisted prompting family to bring the patient to the emergency room. At the ER, patient was received with stable vital signs, afebrile. Chest x-ray showed increased reticulonodular opacities in both lungs worse on the right. She was given Levaquin, and ceftriaxone. On exam, the patient is seen sitting up in bed, awake and alert, oriented x2, answers most questions appropriately occasionally tangential. She reports some mild dyspnea this afternoon, and confirms persistent productive cough without fever or chills. She denies any weakness or numbness or any other symptoms. Primary Care Provider: Jesus Massey, Allergies Principal Diagnosis PNEUMONIA-MSSA/Pseudomonas , GI BLEED -RESOLVED , ANEMIA -CORRECTED Discharge Exam Constitutional WD/WN, vitals as above + thin; no acute distress Eyes PERRL, conjunctivae normal, anicteric sclerae ENMT external ear and nose normal, oropharynx normal Neck trachea midline, no thyromegaly Respiratory normal respiratory effort, lungs clear to auscultation normal respiratory effort and + cough Auscultation: + crackles and + wheezes Cardiovascular RRR, no murmur, no edema Gastrointestinal (Abdomen) normal bowel sounds, soft, nontender, no hepatosplenomegaly Skin no rashes, warm and dry Neurologic PERRL, EOMI, accommodation nl, no face palsy, no dysarthria Psychiatric A+Ox3, euthymic affect Discharge Data Allergies Allergy/AdvReac Type Severity Reaction Status Date / Time No Known Allergies Allergy Verified 06/06/19 20:04 Consultations 06/06/19 21:21 ED Decision to Admit Stat 06/07/19 00:40 Consult Pulmonology Routine 06/11/19 07:58 Consult Gastroenterology Routine Ordered Studies 06/06/19 19:37 CT head/brain wo con Stat 06/07/19 00:16 CT chest wo con Urgent 06/07/19 00:40 MR brain wo con Urgent Hospital Course (1) GI bleed: no further episode hb has remained stable Tolerating diet Hemoccult was positive, patient may had episode of upper GI bleed which has resolved spontaneously Appreciate GI input No active evidence of GI bleed, no endoscopic procedure indicated Patient's advanced age and comorbidities without any active or acute GI bleed endoscopic procedure is not recommended Conservative approach Patient will continue to take Protonix 40 mg twice daily for 3 weeks Avoid NSAIDs Brief episode of dark stool during this admission Acute blood loss anemia with stat H&H showed acute drop in hemoglobin from 118 Status post 2 unit of PRBC transfusion overnight, Posttransfusion H&H improved to 12.4/37.8 Patient did not had any nausea vomiting denies of any epigastric discomfort or pain GI consult requested, appreciate input (2) Pneumonia: Sputum culture growing staph aureus MSSA/Pseudomonas Patient started on Zosyn: Should provide adequate coverage for MSSA and Pseudomonas Pulmonology following appreciate input Cough symptom has improved markedly no pleuritic chest pain no fever or chills, no shortness of breath or hypoxia remains in room air change Abx to p.o. 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 (5) Diabetes: Appreciate input from pharmacy for glycemic management Continue insulin sliding scale and basal Lantus (6) H/O: CVA (cerebrovascular accident): Hold aspirin in the setting of concern for possible GI bleed Be resumed on discharge, as no evidence of bleeding noted (7) MRSA carrier: Bactroban started intranasally. No open wound. (8) Hyponatremia: improved. (9) DVT prophylaxis: Subcu heparin discontinued, ordered for SCD and teds CODE STATUS: DNR/DNI Disposition: Continue PT OT Will need rehab /SNF Referral made to [facility] to be transferred to skilled rehab today Total Time Total Time Spent Total Time Spent (In Minutes): Approximately 40 minutes Total Time Includes: Examination of the Patient, Discharge Planning and Medication Reconciliation Discharge Plan Discharge Items Patient Disposition: Transfer Nursing Home Fac Reason For Visit: ALTERED MENTAL STATUS Discharge Diagnosis: PNEUMONIA-MSSA/Pseudomonas , GI BLEED -RESOLVED , ANEMIA -CORRECTED Activity: As commented below Activity Comment: CONTINUE PHYSICIAL THERAPY /OCCUPATIONAL THERAPY AT REHAB Non-emergency contact: Primary Care Provider Call non-emergency contact if: you have any medication questions Follow-up/Referrals: Jesus Massey DO [Primary Care Provider] - Diet: Heart Healthy Addtl Attending Provider Instructions: DO NOT TAKE ALEVE, ADVIL , MOTRIN , IBUPROPHEN , NAPROXEN , HIGH DOSE ASPIRIN WHICH CAN CAUSE GASTRIC ULCER DISEASE AND BLEEDING IN STOMACH Pending Studies at Discharge: No Stand-Alone Forms: My [facility] Skilled Items Patient informed of condition?: Yes DNR: Yes Discharge Level of Care: Skilled Communicable Disease: No (MRSA Carrier ) Discharge Prognosis: Stable Lines: None Urinary Catheter: No Medications and DC Order Prescriptions: New pantoprazole 40 mg Tablet,Delayed Release (Dr/Ec) 40 mg PO BID 90 Days Qty: 180 RF: 0 tramadol 50 mg Tablet 50 mg PO Q4H PRN (Reason: Pain - Moderate/Severe) Qty: 10 RF: 0 levofloxacin 500 mg Tablet 500 mg PO DAILY@1100 4 Days Qty: 4 RF: 0 amoxicillin-pot clavulanate [Augmentin] 875-125 mg Tablet 1 tab PO BIDM 4 Days Qty: 8 RF: 0 Lactinex 100 million cell granules in packet 1 pkt PO BID Qty: 12 RF: 0 Continued multivitamin Tablet 1 tab PO DAILY RF: 0 sennosides 8.6 mg Tablet 8.6 mg PO DAILY RF: 0 acetaminophen 325 mg Tablet 650 mg PO Q6H PRN (Reason: Fever Or Pain) RF: 0 cetirizine [Zyrtec] 10 mg Tablet 10 mg PO DAILY RF: 0 ascorbic acid (vitamin C) 500 mg Tablet 500 mg PO BID RF: 0 polyethylene glycol 3350 [GlycoLax] 17 gram/dose Powder 17 g PO DAILY RF: 0 fluticasone propionate 50 mcg/actuation spray,suspension 2 spray INTRANASAL DAILY RF: 0 cholecalciferol (vitamin D3) [Vitamin D3] 2,000 unit Tablet 2,000 unit PO DAILY RF: 0 Victoza 3-Rober 0.6 mg/0.1 mL (18 mg/3 mL) pen injector 1.8 mg SUBCUT QAM RF: 0 ProAir RespiClick 90 mcg/actuation Aerosol Powdr Breath Activated 2 inh INHALATION Q4H PRN (Reason: Shortness Of Breath Or Wheezing) RF: 0 Levemir FlexTouch U-100 Insuln 100 unit/mL (3 mL) insulin pen 30 unit subcut QAM RF: 0 losartan 50 mg tablet 50 mg PO DAILY RF: 0 propranolol 120 mg capsule,extended release 24 hr 120 mg PO DAILY RF: 0 solifenacin 5 mg tablet 5 mg PO DAILY RF: 0 Discontinued amlodipine [Norvasc] 5 mg Tablet 5 mg PO QAM Qty: 30 RF: 0 Discharge Orders: Discharge Order (Routine); Ordered 06/14/19 Ordered By: Yolanda Lundy Admission Data Admit Date/Time: 06/06/19 23:49 Attending Provider: Yolanda Lundy Admit Provider: Edu Navarro Primary Care Provider: Jesus Massey Other Providers: [facility] ; Braydon Oleary ; Filiberto Hand ; Sajniv Chandler ; Angel Limon ; Malorie Willis ; Ava Guerrero ; Erasmo Lundberg Other Interventions: Discharge Summary Assessment (RN) Last Done: 06/14/19 13:56 DC Date/Time DO NOT enter until pt leaves facility: 06/14/19 14:46
--- NOTE | 2019-06-17 09:20 | Coding Query ---
CODING QUERY To promote full compliance with coding requirements relating to patient care, provider participation is requested in all cases of criminal investigator uncertainty. Please assist us with the question(s) below: Coding Question(s): Seeking to clarify MAC for this patient admitted in bronchiectasis exacerbation, and pneumonia types pseudomonal and staph. 06/08 Pulmonary notes document "patient now with recent and more increased frequency of respiratory infection most likely due to Chronic MAC". Please check below the statement that applies. Thanks for your help! DEMETRIO Holt [facility] Physician's Response(s): MAC was responsible for this Inpatient admission MAC was a secondary diagnosis / with staph and pseudomonal pneumonia being primary reason for admission x____ MAC was not treated nor responsible for this Inpatient admission Other/ Please document: Principal Diagnosis: "that condition established after study, to be chiefly responsible for occasioning the admission of the patient to the hospital for care." Co-Existing Principal Diagnosis: "when two or more diagnoses equally meet the criteria for principal diagnosis as determined by the circumstances of admission, diagnostic work up, and/or therapy provided, and the Alphabetic Index, Tabular List, or another coding guideline does not provide sequencing direction, any one of the diagnoses may be sequenced first." "When the physician has documented what appears to be a current diagnosis in the body of the record, but has not included the diagnosis in the final diagnostic statement, the physician should be asked whether the diagnosis should be added." (Source Coding Clinic 2 QTR90. p3-4) [employer]
== END 2019-06-14 14:46 | DRG 177 ==
LOC: ED 19:00 → SUATTDRO 23:49 → 2N 23:49 → 4W 06-10 14:34